=== PATIENT | male | born 1990 | race African-American/Black ===

== ENCOUNTER 2024-07-18 10:04 | Inpatient (IN) | payer OTHER ==
[2024-07-18] MEDS ORDERED: HYDROCODONE/APAP 10/325 TAB ONE (11:08)
[2024-07-18] MEDS ORDERED: NA CHLORIDE 0.9% 100 ML ONE (11:09)
[2024-07-18] MEDS ORDERED: CEFEPIME 2 GM VIAL ONE (11:09)
[2024-07-18 11:10] LABS: Absolute Basophils 0.1 K/uL (0-0.5); Absolute Eosinophils 0.2 K/uL (0-0.5); Absolute Lymphocytes (CBC) 1.1 K/uL (0.7-4.9); Absolute Monocytes 1.1 K/uL (0.1-1.3); Absolute Neutrophil 10.1 K/uL (1.8-8.0); Basophils % 0.9 % (0-1.3); Eosinophils % 1.9 % (0-4.4); Hematocrit 35.5 % (39.6-49.0); Hemoglobin 11.1 g/dL (13.6-17.9); Lymphocytes % 8.9 % (15.3-44.8); MCH 26.8 pg (27.0-35.0); MCHC 31.1 g/dL (32.0-36.0); MCV 86.1 fL (80-100); MPV 7.7 fL (7.6-11.3); Monocytes % 8.6 % (3.3-12.3); Neutrophils % 79.7 % (41.7-73.7); Platelets 396 thou/uL (152-406); RBC Red Blood Cell Count 4.13 M/uL (4.33-5.43); Red Cell Distribution Width 16.3 % (12.1-15.2)
[2024-07-18 11:19] LABS: PT Prothrombin Time 13.4 SECONDS (9.4-12.5); PTT, Activated Partial Thromb 33.9 SECONDS (24.3-36.9); Protime INR 1.2
[2024-07-18 11:28] LABS: Albumin 3.3 g/dL (3.4-5.0); Albumin/Globulin Ratio 0.6 (1.1-1.8); Anion Gap 11.2 mEq/L (5.0-15.0); Bilirubin Total 0.4 mg/dL (0.2-1.0); Potassium 4.2 mEq/L (3.5-5.1); Protein, Total 9.3 g/dL (6.4-8.2)
--- NOTE | 2024-07-18 11:45 | RAD REPORT ---
Exam:Foot Right 3 View CLINICAL HISTORY: Right foot pain FINDINGS: Lateral soft tissue ulceration. Destruction involves portions of the fifth metatarsal head. This is compatible with osteomyelitis. Medial subluxation fifth middle phalanx. No fracture visualized.
[2024-07-18] MEDS ORDERED: CLINDAMYCIN 900MG/D5W 900 MG/50 ML IVPB IV ONE (12:04)
--- NOTE | 2024-07-18 12:09 | ER ---
Nurse's Notes [facility] – [place], [place] Name: Tan Marlow Age: 34 yrs Sex: Male : 1990 Arrival Date: 07/18/2024 Time: 10:04 Bed 3 Private MD: Diagnosis: Osteomyelitis of right fifth metatarsal Presentation: 07/18 10:25 Chief complaint: Patient states: increased redness and swelling to bottom of R foot ss since this morning. HX of diabetic foot ulcer. Coronavirus screen: Client denies travel out of the [place] in the last 14 days. Ebola Screen: Patient denies exposure to infectious person. Patient denies travel to an Ebola-affected area in the 21 days before illness onset. Initial Sepsis Screen: Does the patient meet any 2 criteria? No. Patient's initial sepsis screen is negative. Does the patient have a suspected source of infection? No. Patient's initial sepsis screen is negative. Risk Assessment: Do you want to hurt yourself or someone else? Patient reports no desire to harm self or others. Note Pt reports he has not taken his blood pressure medication this morning as of yet. Onset of symptoms was July 18, 2024. 10:25 Method Of Arrival: Ambulatory ss 10:25 Acuity: LULY 2 ss Historical: - Allergies: 10:27 Aspirin; ss 10:27 Bactrim; ss 10:27 Sulfa (Sulfonamide Antibiotics); ss 10:27 Vancomycin; ss - PMHx: 10:27 diabetes mellitus; Hypertensive disorder; kidney disease; MWF dialysis (kidney disease);ss - Immunization history:: Client reports having NOT received the Covid vaccine. - Infectious Disease History:: Denies. - Social history:: Smoking status: Patient denies any tobacco usage or history of. - Family history:: not pertinent. Screenin:02 [facility] ED Fall Risk Assessment (Adult) History of falling in the last 3 months, mb9 including since admission No falls in past 3 months (0 pts) Confusion or Disorientation No (0 pts) Intoxicated or Sedated No (0 pts) Impaired Gait No (0 pts) Mobility Assist Device Used No (0 pt) Altered Elimination No (0 pt) Score/Fall Risk Level 0 - 2 = Low Risk Oriented to surroundings, Maintained a safe environment, Educated pt \T\ family on fall prevention, incl call for assistance when getting out of bed. Abuse screen: Denies threats or abuse. Nutritional screening: No deficits noted. Tuberculosis screening: No symptoms or risk factors identified. Assessment: 11:02 General: Appears in no apparent distress. Behavior is calm, cooperative. Pain: mb9 Complains of pain in right foot Pain does not radiate. Pain currently is 10 out of 10 on a pain scale. Quality of pain is described as throbbing, Pain began gradually, Is continuous, chronic. Neuro: Langston Agitation-Sedation Scale (RASS): 0 - Alert and Calm Level of Consciousness is awake, alert, obeys commands, Oriented to person, place, time, situation, Appropriate for age. Cardiovascular: Patient's skin is warm and dry. Respiratory: Airway is patent Respiratory effort is even, unlabored, Respiratory pattern is regular, symmetrical. GI: Abdomen is flat, non-distended. : No signs and/or symptoms were reported regarding the genitourinary system. EENT: No signs and/or symptoms were reported regarding the EENT system. Derm: Skin is pink, warm \T\ dry. Musculoskeletal: Swelling present in right foot. 12:15 Reassessment: Patient appears in no apparent distress at this time. No changes from mb9 previously documented assessment. Patient and/or family updated on plan of care and expected duration. Pain level reassessed. 13:35 Reassessment: No changes from previously documented assessment. Patient and/or family mb9 updated on plan of care and expected duration. Pain level reassessed. Patient is alert, oriented x 3, equal unlabored respirations, skin warm/dry/pink. Vital Signs: 10:25 BP 205 / 123; Pulse 93; Resp 14; Temp 98.6(O); Pulse Ox 100% on R/A; Weight 74.84 kg; Height 5 ft. 6 in. ; Pain 8/10; 11:38 BP 191 / 91; Pulse 75; Resp 16; Pulse Ox 99% on R/A; mb9 12:09 BP 164 / 80; Pulse 88; Resp 18; Pulse Ox 100% on R/A; mb9 13:35 BP 155 / 94; Pulse 79; Resp 18; Pulse Ox 100% on R/A; mb9 10:25 Body Mass Index 26.63 (74.84 kg, 167.64 cm) 10:25 Pain Scale: Adult ss ED Course: 10:11 Patient arrived in ED. im 10:15 Jak Grant MD is Attending Physician. rt 10:27 Triage completed. ss 10:27 Arm band placed on right wrist. ss 10:47 Ewa Daniel, RN is Primary Nurse. mb9 10:57 Initial lab(s) drawn, by me, sent to lab. First set of blood cultures drawn by me. mb9 11:01 Missed attempt(s): 20 gauge in left antecubital area. Bleeding controlled, band aid mb9 applied, catheter tip intact. 11:02 Placed in gown. Bed in low position. Call light in reach. Side rails up X 1. Provided mb9 Education on: press call light if needing anything. Client placed on continuous cardiac and pulse oximetry monitoring. NIBP monitoring applied. fatback trimmer on. 11:03 Ptt, Activated Sent. mb9 11:03 CBC with Diff Sent. mb9 11:03 CMP Sent. mb9 11:03 Protime (+inr) Sent. mb9 11:03 No provider procedures requiring assistance completed. mb9 11:18 Inserted saline lock: 20 gauge in right antecubital area, using aseptic technique. ls5 Blood collected. 11:19 Foot Right 3 View XRAY In Process Unspecified. EDMS 11:22 Blood Culture Adult (2) Sent. mb9 11:22 EKG done, by ED staff, reviewed by Jak Grant MD. mb9 12:08 Jorge Fonseca is Hospitalizing Provider. rt 12:09 Patient requests pain medication. mb9 13:35 Patient admitted, IV remains in place. mb9 Administered Medications: 11:22 Drug: [place] PO 10 mg-325 mg 1 tabs PO once Route: PO; mb9 12:43 Follow up: Response: No adverse reaction mb9 11:22 Drug: Cefepime IVPB 2 grams IVPB at 200 ml/hr once over 30 mins; (mix in NS 100 mL) mb9 Route: IVPB; Rate: 200 ml/hr; Infused Over: 30 mins; Site: right antecubital; 12:02 Follow up: Response: No adverse reaction; IV Status: Completed infusion mb9 12:08 Drug: Clindamycin IVPB 900 mg IVPB once over 30 mins; (mix in 50 mL) Route: IVPB; mb9 Infused Over: 30 mins; Site: right antecubital; 12:43 Follow up: Response: No adverse reaction; IV Status: Completed infusion mb9 Medication: 11:02 VIS not applicable for this client. mb9 Outcome: 12:08 Decision to Hospitalize by Provider. rt 14:02 Admitted to Med/surg db 14:02 Admitted to Med/surg accompanied by tech, via wheelchair, room 431, Report called to ASKED 4TH FLOOR IF HAVE QUESTIONS. NO QUESTIONS 14:02 Condition: stable 14:02 Instructed on the need for admit, 14:03 Patient left the ED. db Signatures: Dispatcher [employer] EDMS Aga Hector RN RN ss Mayela Mendosa RN RN Ewa Rider RN RN mbJak Quispe MD MD rt Evelio Saravia5 Zara Freedman
--- NOTE | 2024-07-18 12:09 | EDPHYS ---
Physician Documentation [facility] Name: Tan Marlow Age: 34 yrs Sex: Male : 1990 Arrival Date: 07/18/2024 Time: 10:04 Bed 3 Private MD: ED Physician Jak Grant HPI: 07/18 12:10 This 34 yrs old Black Male presents to ER via Ambulatory with complaints of Wound Check rt - on right foot. 12:10 Patient has a chronic diabetic foot wound to the right foot, states that he developed rt worsening redness, pain to the foot starting today. Reports a malodorous discharge. Denies other acute complaints at this time, symptoms are moderate in severity, no other aggravating or alleviating factors.. Historical: - Allergies: 10:27 Aspirin; ss 10:27 Bactrim; ss 10:27 Sulfa (Sulfonamide Antibiotics); ss 10:27 Vancomycin; ss - PMHx: 10:27 diabetes mellitus; Hypertensive disorder; kidney disease; MWF dialysis (kidney disease);ss - Immunization history:: Client reports having NOT received the Covid vaccine. - Infectious Disease History:: Denies. - Social history:: Smoking status: Patient denies any tobacco usage or history of. - Family history:: not pertinent. ROS: 12:10 Constitutional: Negative for fever, chills, and weight loss, Cardiovascular: Negative rt for chest pain, palpitations, and edema, Respiratory: Negative for shortness of breath, cough, wheezing, and pleuritic chest pain, Abdomen/GI: Negative for abdominal pain, nausea, vomiting, diarrhea, and constipation, 12:10 MS/extremity: Positive for Wound, erythema, pain, Exam: 12:10 Constitutional: This is a well developed, well nourished patient who is awake, alert, rt and in no acute distress. Head/Face: Normocephalic, atraumatic. Chest/axilla: Normal chest wall appearance and motion. Nontender with no deformity. No lesions are appreciated. Cardiovascular: Regular rate and rhythm with a normal S1 and S2. No gallops, murmurs, or rubs. Normal PMI, no JVD. No pulse deficits. Respiratory: Lungs have equal breath sounds bilaterally, clear to auscultation and percussion. No rales, rhonchi or wheezes noted. No increased work of breathing, no retractions or nasal flaring. Abdomen/GI: Soft, non-tender, with normal bowel sounds. No distension or tympany. No guarding or rebound. No evidence of tenderness throughout. 12:10 Musculoskeletal/extremity: Ulceration to the fifth metatarsal region, scant malodorous discharge. 12:10 ECG was reviewed by the Attending Physician. rt Vital Signs: 10:25 BP 205 / 123; Pulse 93; Resp 14; Temp 98.6(O); Pulse Ox 100% on R/A; Weight 74.84 kg; ss Height 5 ft. 6 in. ; Pain 8/10; 11:38 BP 191 / 91; Pulse 75; Resp 16; Pulse Ox 99% on R/A; mb9 12:09 BP 164 / 80; Pulse 88; Resp 18; Pulse Ox 100% on R/A; mb9 13:35 BP 155 / 94; Pulse 79; Resp 18; Pulse Ox 100% on R/A; mb9 10:25 Body Mass Index 26.63 (74.84 kg, 167.64 cm) ss 10:25 Pain Scale: Adult ss MDM: 10:31 Medical Screening Exam initiated rt 12:10 Differential diagnosis: Cellulitis, diabetic foot wound, osteomyelitis. Data reviewed: rt vital signs, nurses notes. Consideration of Admission/Observation Patient was admitted/placed on observation. Management of patient was discussed with the following: Hospitalist: Agrees to admit. I considered the following discharge prescriptions or medication management in the emergency department Medications were administered in the Emergency Department. See MAR. Independent interpretation of the following test(s) in the Emergency Department X-Ray: My interpretation is Osteomyelitis seen on interpretation of x-ray images. Care significantly affected by the following chronic conditions: Diabetes, Hypertension, Chronic Kidney Disease. Counseling: I had a detailed discussion with the patient and/or guardian regarding the historical points, exam findings, and any diagnostic results supporting the discharge/admit diagnosis, lab results, radiology results, the need for further work-up and treatment in the hospital. Response to treatment: There is no appreciated change of the patient's symptoms at this time. 07/18 10:39 Order name: Blood Culture Adult (2) rt 07/18 10:39 Order name: CBC with Diff; Complete Time: 11:32 rt 07/18 10:39 Order name: CMP; Complete Time: 11:32 rt 07/18 10:39 Order name: Lactate w/ 2H reflex if indic.; Complete Time: 11:32 rt 07/18 10:39 Order name: Protime (+inr); Complete Time: 11:32 rt 07/18 10:39 Order name: Ptt, Activated; Complete Time: 11:32 rt 07/18 10:39 Order name: Foot Right 3 View XRAY; Complete Time: 11:51 rt 07/18 10:39 Order name: Accucheck; Complete Time: 10:47 rt 07/18 10:39 Order name: Cardiac monitoring; Complete Time: 10:47 rt 07/18 10:39 Order name: EKG - Nurse/Tech; Complete Time: 11:22 rt 07/18 10:39 Order name: IV Saline Lock - Large Bore; Complete Time: 11:23 rt 07/18 10:39 Order name: Labs collected and sent; Complete Time: 11:03 rt 07/18 10:39 Order name: O2 Per Protocol; Complete Time: 10:47 rt 07/18 10:39 Order name: O2 Sat Monitoring; Complete Time: 10:47 rt 07/18 10:39 Order name: Vital Signs; Complete Time: 10:47 rt EC:10 Rate is 92 beats/min. Rhythm is regular, 1st Degree Block with No ectopy. QRS [place] is rt Normal. PA interval is normal. QRS interval is normal. QT interval is normal. No Q waves. No ST changes noted. Interpreted by me. Administered Medications: 11:22 Drug: [place] PO 10 mg-325 mg 1 tabs PO once Route: PO; mb9 12:43 Follow up: Response: No adverse reaction mb9 11:22 Drug: Cefepime IVPB 2 grams IVPB at 200 ml/hr once over 30 mins; (mix in NS 100 mL) mb9 Route: IVPB; Rate: 200 ml/hr; Infused Over: 30 mins; Site: right antecubital; 12:02 Follow up: Response: No adverse reaction; IV Status: Completed infusion mb9 12:08 Drug: Clindamycin IVPB 900 mg IVPB once over 30 mins; (mix in 50 mL) Route: IVPB; mb9 Infused Over: 30 mins; Site: right antecubital; 12:43 Follow up: Response: No adverse reaction; IV Status: Completed infusion mb9 Disposition Summary: 07/18/24 12:08 Hospitalization Ordered Notes: Hospitalization Status: Inpatient Admission rt Provider: Jorge Fonseca rt Location: Telemetry/MedSurg (Inpatient) rt Condition: Stable rt Problem: new rt Symptoms: are unchanged rt Bed/Room Type: Standard rt Room Assignment: 431(07/18/24 13:30) bd Diagnosis - Osteomyelitis of right fifth metatarsal rt Forms: - Medication Reconciliation Form rt - SBAR form rt - Leadership Thank You Letter rt Signatures: Dispatcher [employer] EDMS Carmelita mcgee bd Aga Hector, RN RN ss Ewa Daniel RN RN mb9 Jak Grant MD MD rt Corrections: (The following items were deleted from the chart) 10:40 10:40 BLOOD CULTURE*+BA.LAB.BRZ ordered. EDMS EDMS 10:40 10:40 CBC+H.LAB.BRZ ordered. EDMS EDMS 10:40 10:40 COMPREHENSIVE METABOLIC PANEL+C.LAB.BRZ ordered. EDMS EDMS 10:40 10:40 LACTATE+C.LAB.BRZ ordered. EDMS EDMS 10:40 10:40 PROTIME (+INR)+COAG.LAB.BRZ ordered. EDMS EDMS 10:40 10:40 PTT, ACTIVATED+COAG.LAB.BRZ ordered. EDMS EDMS 10:40 10:40 Foot Right 3 View+RAD.RAD.BRZ ordered. EDMS EDMS 13:05 12:08 rt bd 13:30 13:05 411 bd bd
--- NOTE | 2024-07-18 12:59 | P.HP ---
Certification for Inpatient Patient admitted to: Inpatient With expected LOS: >2 Midnights Patient will require the following post-hospital care: None Practitioner: I am a practitioner with admitting privileges, knowledge of patient current condition, hospital course, and medical plan of care. Services: Services provided to patient in accordance with Admission requirements found in Title 42 Section 412.3 of the Code of Federal Regulations Patient History Date of Service: 07/18/24 Reason for admission: Osteomyelitis History of Present Illness: 34-year-old recently initiated on HD presents emergency department chief complaint of right foot wound. He has had the wound for some time now but has been getting worse and causing increasing pain which prompted his visit to the emergency department. He was evaluated in the emergency department his labs were significant for white blood cell count 12.7 hemoglobin 11.1 creatinine 7.53 GFR 9 potassium 4.2 bicarb 22 lactic acid 0.9 x-ray of the right foot shows distraction involves portion of the fifth metatarsal head. This is compatible with osteomyelitis. Patient started on broad-spectrum antibiotics, ED provider wishes to admit patient for further evaluation and management. Allergies aspirin Adverse Reaction (Verified 06/03/24 21:06) Hives/Rash Sulfa (Sulfonamide Antibiotics) Adverse Reaction (Verified 06/03/24 21:07) Hives/Rash sulfamethoxazole [From Bactrim] Adverse Reaction (Verified 06/03/24 21:07) Hives/Rash trimethoprim [From Bactrim] Adverse Reaction (Verified 06/03/24 21:07) Hives/Rash vancomycin Adverse Reaction (Verified 06/03/24 21:07) Hives/Rash Home Medications: Atorvastatin Calcium 40 mg PO BEDTIME 06/03/24 Buproprion S.r. [Wellbutrin Sr*] 150 mg PO DAILY 06/03/24 Furosemide 1 tab PO SEECOM 06/03/24 Hydralazine [Apresoline*] 100 mg PO TID 06/03/24 Insulin Aspart [Novolog Flexpen] See Protocol SQ ACHS 06/03/24 Insulin Detemir [Levemir Flexpen] 10 unit SQ BID 06/03/24 Metoprolol Succinate 1 tab PO DAILY 06/03/24 NIFEdipine [Nifedipine ER] 60 mg PO BID 06/03/24 cloNIDine HCL [Clonidine HCl] 0.1 mg PO TID 06/03/24 Doxycycline Hyclate 100 mg PO DAILY #7 tab 06/10/24 Ferrous Sulfate 325 mg PO DAILY 30 Days #30 tab 06/10/24 Levofloxacin [Levaquin] 125 mg PO DAILY 6 Days #3 tab 06/10/24 Losartan Potassium [Cozaar*] 50 mg PO BID 30 Days #60 tab 06/10/24 Multivitamin [Daily Multivitamin] 1 each PO DAILY 30 Days #30 tab 06/10/24 Quetiapine Fumarate [Seroquel] 50 mg PO BEDTIME 30 Days #30 tab 06/10/24 - Past Medical/Surgical History Diabetic: Yes -: HTN -: DM -: ESRD on HD-pending PD -: Incision right foot - Social History Alcohol use: No CD- Drugs: No Caffeine use: No Place of Residence: Home Review of Systems 10-point ROS is otherwise unremarkable Musculoskeletal: Foot Pain Integumentary: Other (To right foot) Physical Examination - Physical Exam General: Alert, In no apparent distress, Oriented x3 HEENT: Atraumatic, PERRLA, Mucous membr. moist/pink, EOMI, Sclerae nonicteric Neck: Supple, 2+ carotid pulse no bruit, No LAD, Without JVD or thyroid abnormality Respiratory: Clear to auscultation bilaterally, Normal air movement Cardiovascular: Regular rate/rhythm, Normal S1 S2 Gastrointestinal: Normal bowel sounds, No tenderness Musculoskeletal: No tenderness Integumentary: Diabetic ulcer (Diabetic ulceration right lateral foot base of fifth toe) Neurological: Normal speech, Normal strength at 5/5 x4 extr, Normal tone, Normal affect - Studies Laboratory Data (last 24 hrs) 07/18/24 07/18/24 07/18/24 10:59 10:59 10:59 WBC 12.70 H Hgb 11.1 L Hct 35.5 L Plt Count 396 PT 13.4 H INR 1.20 APTT 33.9 Sodium 134 L Potassium 4.2 BUN 46 H Creatinine 7.53 H Glucose 245 H Total Bilirubin 0.4 AST 30 ALT 30 Alkaline Phosphatase 154 H Assessment and Plan - Plan Assessment: Diabetic foot wound to right lateral foot at base of fifth toe, osteomyelitis Diabetes mellitus type 2insulin-dependent with hyperglycemia ESRD on HD MWF-pending possible PD outpatient Hypertension Plan: Diabetic foot wound to right lateral foot at base of fifth toe, osteomyelitis Continue IV antibiotics. Allergic to vancomycin, continue cefepime, clindamycin for now Infectious disease, general surgery consulted N.p.o. after midnight in anticipation of possible debridement with general surgery As needed pain medications Likely to need prolonged antibiotics, will assess for possibility of administering with dialysis versus home with home health/ABX Diabetes mellitus type 2insulin-dependent with hyperglycemia At home takes Levemir 10 units twice daily, sliding scale insulin ACHS Accu-Chek, sliding scale insulin ESRD on HD MWF-pending possible PD outpatient Last had HD 07/17 Nephrology consulted Reports he was awaiting peritoneal dialysis teaching, has not initiated yet but has catheter in place Hypertension Resume home medications when verified DVT PPX: Heparin subcu Code status: Full Discharge Plan: Home Plan to discharge in: 48 Hours - Advance Directives Does patient have a Living Will: No Does patient have a Durable POA for Healthcare: No - Code Status/Comfort Care Code Status Assessed: Yes (Full code) Critical Care: No Time Spent Managing Pts Care (In Minutes): 67
[2024-07-18] MEDS ORDERED: ONDANSETRON 4 MG/2 ML VIAL IV PRN (15:21)
[2024-07-18] MEDS ORDERED: cloNIDine HCL 0.1 MG TAB PO ONE (15:29)
[2024-07-18] MEDS: HYDROCODONE/APAP 5/325 MG TAB PO PRN (15:55)
[2024-07-18] MEDS: cloNIDine HCL 0.1 MG TAB PO SCH (16:29)
[2024-07-18] MEDS: INSULIN REGULAR (HUMAN) 100 UNIT/ML SQ SCH (16:30)
[2024-07-18] MEDS: CLINDAMYCIN 600MG/D5W 50 ML IV SCH (20:30)
[2024-07-18] MEDS: HYDROMORPHONE HCL 1 MG/ML INJ IV PRN (20:30)
[2024-07-18] MEDS: CALCIUM ACETATE 667 MG TAB PO SCH (20:32)
[2024-07-18] MEDS: LOSARTAN POTASSIUM 50 MG TABLET PO SCH (20:32)
[2024-07-18] MEDS: HEPARIN 5000 UNIT/ML 1 ML VIAL SQ SCH (20:32)
[2024-07-18] MEDS: ATORVASTATIN 40 MG TAB PO SCH (20:33)
[2024-07-18] MEDS: QUETIAPINE 25 MG TAB PO SCH (20:33)
[2024-07-18] MEDS: NIFEDIPINE XL 60 MG TABLET PO SCH (20:34)
[2024-07-18] MEDS: HYDRALAZINE HCL 25 MG TABLET PO SCH (20:34)
[2024-07-18] MEDS: CEFEPIME 1 GM in NA CHLORIDE 0.9% 100 ML IV SCH (20:34)
[2024-07-19 06:48] LABS: Absolute Basophils 0.1 K/uL (0-0.5); Absolute Eosinophils 0.4 K/uL (0-0.5); Absolute Lymphocytes (CBC) 1.1 K/uL (0.7-4.9); Absolute Monocytes 0.9 K/uL (0.1-1.3); Absolute Neutrophil 5.8 K/uL (1.8-8.0); Basophils % 1.1 % (0-1.3); Eosinophils % 5.1 % (0-4.4); Hemoglobin 9.3 g/dL (13.6-17.9); Lymphocytes % 13.5 % (15.3-44.8); MCH 26.7 pg (27.0-35.0); MCHC 31.1 g/dL (32.0-36.0); MCV 85.9 fL (80-100); MPV 7.8 fL (7.6-11.3); Monocytes % 11.3 % (3.3-12.3); Platelets 341 thou/uL (152-406); RBC Red Blood Cell Count 3.49 M/uL (4.33-5.43)
[2024-07-19 07:10] LABS: Anion Gap 11.6 mEq/L (5.0-15.0); Potassium 4.6 mEq/L (3.5-5.1)
[2024-07-19] MEDS ORDERED: D50W 25 GM/50 ML SYRINGE IV PRN (08:21)
[2024-07-19] MEDS ORDERED: GLUCAGON 1 MG/VIAL IV PRN (08:22)
[2024-07-19] MEDS: HYDRALAZINE HCL 20 MG/ML VIAL IV PRN (08:28)
[2024-07-19] MEDS ORDERED: D10W 125 ML IV PRN (08:31)
[2024-07-19] MEDS: FERROUS SULFATE 325 MG TAB PO SCH (08:46)
[2024-07-19] MEDS: BUPROPRION HCL S.R. 150MG TAB PO SCH (08:47)
[2024-07-19] MEDS: METOPROLOL XL 100 MG TAB PO SCH (08:47)
[2024-07-19] MEDS ORDERED: MANNITOL 25% 12.5 GM/50 ML VIAL IV PRN (09:40)
[2024-07-19] MEDS ORDERED: NA CHLORIDE 0.9% 1,000 ML IV PRN (09:40)
--- NOTE | 2024-07-19 09:42 | P.CNS ---
Date of Consult: 07/19/24 Reason for Consult: ESRD Requesting Physician: rufus hutchinson Chief Complaint: Osteomyelitis History of Present Illness: 34-year-old recently initiated on HD presents emergency department chief complaint of right foot wound. He has had the wound for some time now but has been getting worse and causing increasing pain which prompted his visit to the emergency department. He was evaluated in the emergency department his labs were significant for white blood cell count 12.7 hemoglobin 11.1 creatinine 7.53 GFR 9 potassium 4.2 bicarb 22 lactic acid 0.9 x-ray of the right foot shows distraction involves portion of the fifth metatarsal head. This is compatible with osteomyelitis. Patient started on broad-spectrum antibiotics, ED provider wishes to admit patient for further evaluation and management. [id number] 12:10 This 34 yrs old Black Male presents to ER via Ambulatory with complaints of Wound Check rt - on right foot. 12:10 Patient has a chronic diabetic foot wound to the right foot, states that he developed rt worsening redness, pain to the foot starting today. Reports a malodorous discharge. Denies other acute complaints at this time, symptoms are moderate in severity, no other aggravating or alleviating factors.. Allergies aspirin Adverse Reaction (Verified 06/03/24 21:06) Hives/Rash Sulfa (Sulfonamide Antibiotics) Adverse Reaction (Verified 06/03/24 21:07) Hives/Rash sulfamethoxazole [From Bactrim] Adverse Reaction (Verified 06/03/24 21:07) Hives/Rash trimethoprim [From Bactrim] Adverse Reaction (Verified 06/03/24 21:07) Hives/Rash vancomycin Adverse Reaction (Verified 06/03/24 21:07) Hives/Rash Home medications list reviewed: Yes Home Medications: Atorvastatin Calcium 40 mg PO BEDTIME 06/03/24 Buproprion S.r. [Wellbutrin Sr*] 150 mg PO DAILY 06/03/24 Furosemide 1 tab PO SEECOM 06/03/24 Insulin Aspart [Novolog Flexpen] See Protocol SQ ACHS 06/03/24 Metoprolol Succinate 1 tab PO DAILY 06/03/24 NIFEdipine [Nifedipine ER] 60 mg PO BID 06/03/24 cloNIDine HCL [Clonidine HCl] 0.1 mg PO TID 06/03/24 Ferrous Sulfate 325 mg PO DAILY 30 Days #30 tab 06/10/24 Losartan Potassium [Cozaar*] 50 mg PO BID 30 Days #60 tab 06/10/24 Quetiapine Fumarate [Seroquel] 50 mg PO BEDTIME 30 Days #30 tab 06/10/24 Calcium Acetate 667 mg PO TID 07/18/24 Hydralazine [Apresoline] 100 mg PO TID 07/18/24 Insulin Glargine,Hum.rec.anlog [Lantus] 10 unit SQ BID 07/18/24 - Past Medical/Surgical History Diabetic: Yes -: HTN -: DM I with CKD, Polyneuropathy & Retinopathy -: ESRD on HD (Dr. Oneal/ [facility]) -: Anemia -: Incision right foot - Family History Father History Unknown: Yes Medical History: Heart disease, Diabetes, Stroke, Kidney disease Notes: DM. CHF Mother History Unknown: Yes Medical History: Diabetes, Kidney disease Notes: Dementia showing early on set - Social History Alcohol use: No CD- Drugs: No Caffeine use: Yes Place of Residence: Home Review of Systems 10-point ROS is otherwise unremarkable Physical Examination Temp Pulse Resp BP Pulse Ox 97.8 F 79 12 205/111 H 97 07/19/24 08:00 07/19/24 08:00 07/19/24 08:00 07/19/24 08:00 07/19/24 08:00 General: In no apparent distress, Oriented x3, Cooperative HEENT: Atraumatic Neck: Supple Respiratory: Clear to auscultation bilaterally, Normal air movement Cardiovascular: No edema, Regular rate/rhythm Gastrointestinal: Soft and benign, Non-distended Musculoskeletal: No clubbing, No contractures Integumentary: No rashes, No cyanosis Neurological: Normal speech Laboratory Data (last 24 hrs) 07/18/24 07/18/24 07/18/24 10:59 10:59 10:59 WBC 12.70 H Hgb 11.1 L Hct 35.5 L Plt Count 396 PT 13.4 H INR 1.20 APTT 33.9 Sodium 134 L Potassium 4.2 BUN 46 H Creatinine 7.53 H Glucose 245 H Total Bilirubin 0.4 AST 30 ALT 30 Alkaline Phosphatase 154 H Imagings Data: [id number] Exam:Foot Right 3 View CLINICAL HISTORY: Right foot pain FINDINGS: Lateral soft tissue ulceration. Destruction involves portions of the fifth metatarsal head. This is compatible with osteomyelitis. Medial subluxation fifth middle phalanx. No fracture visualized. Conclusions/Impression: ESRD on HD -Acute HD ordered HTN with CKD -Continue Losartan -Continue Nifedipine XL -Continue Metoprolol DM I with CKD, Polyneuropathy & Retinopathy -Continue Lantus -RISS DM I with Right Foot Ulcer Right foot osteomyelitis -Surgery following -Continue abx -Wound care as ordered Anemia in CKD -Retacrit qHD CKD MBD Secondary HyperPTH -Continue Phoslo -Start Ergo Hospitalist and ER notes reviewed Thank you kindly for the consultation
[2024-07-19] MEDS ORDERED: ALBUMIN HUMAN 25% 50 ML IV SCH (10:00)
[2024-07-19] MEDS: NA CHLORIDE 0.9% 500 ML ONE (13:00)
[2024-07-19] MEDS: HYDRALAZINE HCL 20 MG/ML VIAL ONE (13:30)
--- NOTE | 2024-07-19 13:39 | P.PN ---
Date of Service: 07/19/24 Subjective Awake and conversing well c/o pain to right foot NPO for surgery today HD ordered per Dr. Oneal ROS 10 point ROS as noted above, otherwise negative Physical Exam General: Alert and Oriented x3, NAD HEENT: Atraumatic, PERRLA, Mucous membr. moist/pink, EOMI, Sclerae nonicteric Neck: Supple, 2+ carotid pulse no bruit, No LAD, Without JVD or thyroid abnormality Respiratory: Clear to auscultation bilaterally, Normal air movement, on RA Cardiovascular: RRR, Normal S1 S2 present, No murmur noted Gastrointestinal: Normal bowel sounds, No tenderness Musculoskeletal: No tenderness Integumentary: Diabetic ulcer (Diabetic ulceration right lateral foot base of fifth toe) Neurological: Normal speech, Normal strength at 5/5 x4 extr, Normal tone, Normal affect Vitals Reviewed Assessment: Diabetic foot wound to right lateral foot at base of fifth toe, osteomyelitis Diabetes mellitus type 2insulin-dependent with hyperglycemia ESRD on HD MWF-pending possible PD outpatient Hypertension Plan: Diabetic foot wound to right lateral foot at base of fifth toe, osteomyelitis Continue IV antibiotics. Allergic to vancomycin, continue cefepime, clindamycin for now Infectious disease, general surgery consulted General surgery plan for I and D today 07/19 As needed pain medications Likely to need prolonged antibiotics, will assess for possibility of administering with dialysis versus home with home health/ABX Blood culture NGTD Diabetes mellitus type 2insulin-dependent with hyperglycemia At home takes Levemir 10 units twice daily, sliding scale insulin ACHS Accu-Chek, sliding scale insulin ESRD on HD MWF-pending possible PD outpatient Last had HD 07/17, HD scheduled for today 07/19 Nephrology consulted Reports he was awaiting peritoneal dialysis teaching, has not initiated yet but has catheter in place Hypertension Resume home medications when verified hydralazine PRN DVT PPX: Heparin subcu Code status: Full Discharge Plan: Home Plan to discharge in: 48 Hours
[2024-07-19] MEDS ORDERED: propofoL 200 MG/20 ML VIAL IV ONE (13:48)
[2024-07-19] MEDS ORDERED: MIDAZOLAM HCL 2 MG/2 ML INJ ONE (13:49)
[2024-07-19] MEDS: LIDOCAINE HCL/EPINEPHRINE 20 ML MDV ONE (14:03)
--- NOTE | 2024-07-19 14:51 | EKG ---
Test Date: 2024-07-18 Test Time: 11:17:24 Rf Test Engineer: MB MEASUREMENT RESULTS: Intervals: Rate: 92 WY: 212 QRSD: 104 QT: 380 QTc: 469 [place]: P: 59 WY: 212 QRS: 162 T: -11 INTERPRETIVE STATEMENTS: Sinus rhythm with 1st degree AV block Septal infarct, age undetermined T wave abnormality, consider inferior ischemia Abnormal ECG Compared to ECG 06/03/2024 17:34:25 Left-axis deviation no longer present Myocardial infarct finding still present T-wave abnormality still present Possible ischemia still present Electronically Signed On 07-19-24 14:46:38 CDT by Julian Sidhu
[2024-07-19] MEDS: LIDOCAINE 1% MPF 5 ML VIAL ONE (14:52)
--- NOTE | 2024-07-19 15:04 | P.OP ---
Preoperative diagnosis: Wound of RIGHT Lateral Foot Postoperative diagnosis: Wound of RIGHT Lateral Foot Primary procedure: Debridement of RIGHT Lateral Foot Anesthesia: GETA Estimated blood loss: <5cc Specimen: Debridement Tissue Findings: Necrotic tissue into bone Complications: None Transferred to: Recovery Room Condition: Good
[2024-07-19 19:47] LABS: Hepatitis B surface AG Interp. Nonreactive (Nonreactive)
[2024-07-19 19:48] LABS: HBsAG Nonreactive Report Report
[2024-07-19] MEDS: EPOETIN ALFA 10,000 UNIT/ML VIAL IV SCH (20:15)
[2024-07-19] MEDS: DOCUSATE NA 100 MG CAP PO SCH (22:12)
[2024-07-19] MEDS: INSULIN GLARGINE 100 UNIT/ML SQ SCH (22:12)
--- NOTE | 2024-07-20 01:22 | OP ---
Date of Procedure: 07/19/2024 Surgeon: Yoseph Deshpande MD, Preoperative Diagnosis: Chronic wound with osteomyelitis of the right lateral foot. Postoperative Diagnosis: Chronic wound with osteomyelitis of the right lateral foot. Procedure Performed: Debridement of the right lateral foot. Anesthesia: General endotracheal. Estimated Blood Loss: Less than 5 cc. Specimen: Debridement tissue. Findings: There was necrotic tissue on the lateral foot wound consistent with a diabetic foot wound, which had eroded into the bone with osteomyelitis and osteoporotic bone. Complications: None. Disposition: The patient was transferred to recovery room in good condition. Procedure In Detail: After informed consent was obtained, the patient was brought to the operating r oom, prepped in the usual sterile fashion. After adequate anesthesia achieved, I removed all nonviab le tissue circumferentially around the open wound of the right foot circumferentially around the area using a 15 blade down to subcutaneous tissues, also removed all nonviable tissue circumferentially a round using a combination of electrocautery and sharp dissection as well as a rasp. There were fragm entations of bone consistent with osteomyelitic changes into the cortex of the bone at the metatarsal head near the metatarsophalangeal joint. This was rasped down to remove all nonviable tissue. The area was copiously irrigated. Hemostasis was achieved with minimal electrocautery. The wound was th en packed with Vashe-soaked Kerlix and a sterile dressing placed over the top. The wound size at the end of the procedure was approximately 3.5 cm circumferentially around. The patient tolerated the p rocedure well without incident or complication, transferred to PACU in good condition. All counts we re correct at the end of the case. ANDREAS/BRIT Voice ID: [id number] Report ID: [id number]
[2024-07-20 07:34] LABS: Absolute Basophils 0.1 K/uL (0-0.5); Absolute Eosinophils 0.4 K/uL (0-0.5); Absolute Lymphocytes (CBC) 1.7 K/uL (0.7-4.9); Absolute Monocytes 1.1 K/uL (0.1-1.3); Basophils % 1.4 % (0-1.3); Eosinophils % 4.8 % (0-4.4); Hematocrit 31.8 % (39.6-49.0); Lymphocytes % 20.2 % (15.3-44.8); MCH 26.9 pg (27.0-35.0); MCHC 31.3 g/dL (32.0-36.0); MCV 85.7 fL (80-100); MPV 7.8 fL (7.6-11.3); Monocytes % 13.5 % (3.3-12.3); Neutrophils % 60.1 % (41.7-73.7); Platelets 400 thou/uL (152-406); RBC Red Blood Cell Count 3.71 M/uL (4.33-5.43); Red Cell Distribution Width 15.9 % (12.1-15.2)
[2024-07-20] MEDS: Mupirocin NASAL 2 APPL/1 GM TUBE NAS SCH (09:00)
[2024-07-20] MEDS: MULTIVITAMINS,THERAPEUT 1 TAB PO SCH (09:52)
[2024-07-20] MEDS: DRISDOL (VITAMIN D=ERGOCALCIFEROL) 50000 UNIT CAP PO SCH (09:52)
[2024-07-20] MEDS: LACTOBACILLUS/ACIDOPHILUS TAB PO SCH (09:52)
--- NOTE | 2024-07-20 11:11 | P.PN ---
Date of Service: 07/20/24 Vital Signs Temp Pulse Resp BP Pulse Ox 98.1 F 74 16 129/72 97 07/20/24 08:00 07/20/24 10:39 07/20/24 10:23 07/20/24 10:39 07/20/24 10:23 Medications Acetaminophen (Acetaminophen 325 Mg Tablet) 650 mg PO Q4HP PRN PRN Reason: Pain scale 2-4 (Mild) Hydrocodone Bitart/Acetaminophen (Hydrocodone/Apap 5/325 Mg Tab) 1 tab PO Q6H PRN PRN Reason: Pain scale 5-7 (Moderate) Last Admin: 07/18/24 15:55 Dose: 1 tab Atorvastatin Calcium (Atorvastatin 40 Mg Tab) 40 mg PO BEDTIME [facility] Last Admin: 07/19/24 22:11 Dose: 40 mg Bupropion HCl (Buproprion Hcl S.R. 150mg Tab) 150 mg PO DAILY [facility] Last Admin: 07/20/24 09:54 Dose: 150 mg Calcium Acetate (Calcium Acetate 667 Mg Tab) 667 mg PO TID [facility] Last Admin: 07/20/24 09:52 Dose: 667 mg Clonidine HCl (Clonidine Hcl 0.1 Mg Tab) 0.1 mg PO TID [facility] Last Admin: 07/20/24 09:49 Dose: 0.1 mg Docusate Sodium (Docusate Na 100 Mg Cap) 100 mg PO BID [facility] Last Admin: 07/20/24 09:00 Dose: Not Given Epoetin Victoriano (Epoetin Victoriano 10,000 Unit/Ml Vial) 10,000 unit IV EVERY HD [facility] Last Admin: 07/19/24 20:15 Dose: 10,000 unit Ergocalciferol (Drisdol (Vitamin D=Ergocalciferol) 85063 Unit Cap) 50,000 unit PO DAILY [facility] Stop: 07/21/24 09:01 Last Admin: 07/20/24 09:52 Dose: 50,000 unit Ferrous Sulfate (Ferrous Sulfate 325 Mg Tab) 325 mg PO DAILY [facility] Last Admin: 07/20/24 09:48 Dose: 325 mg Glucagon (Glucagon 1 Mg/Vial) 1 mg IV 1X PRN; Protocol PRN Reason: HYPOGLYCEMIA Heparin Sodium (Porcine) (Heparin 5000 Unit/Ml 1 Ml Vial) 5,000 unit SQ Q12HR [facility] Last Admin: 07/20/24 09:00 Dose: Not Given Heparin Sodium (Porcine) (Heparin 1,000 Unit/Ml Vial) 6,000 unit IV EVERY HD PRN PRN Reason: AFTER EACH Last Admin: 07/19/24 21:09 Dose: 6,000 unit Heparin Sodium (Porcine) (Heparin 1,000 Unit/Ml Vial) 2,000 unit IV EVERY HD PRN PRN Reason: Prevent HD System Clotting Last Admin: 07/19/24 18:05 Dose: 2,000 unit Hydralazine HCl (Hydralazine Hcl 20 Mg/Ml Vial) 10 mg IV Q6HP PRN PRN Reason: SBP>190 [facility] Last Admin: 07/19/24 08:28 Dose: 10 mg Hydralazine HCl (Hydralazine Hcl 25 Mg Tablet) 100 mg PO TID [facility] Last Admin: 07/20/24 09:00 Dose: Not Given Hydromorphone HCl (Hydromorphone Hcl 1 Mg/Ml Inj) 1 mg IV Q4H PRN PRN Reason: Pain scale 8-10 (Severe) Last Admin: 07/20/24 10:23 Dose: 1 mg Clindamycin HCl/Dextrose (Cleocin 600 Mg/D5w 50 Ml Iv) 50 mls @ 100 mls/hr IV Q8H [facility]; Protocol Last Admin: 07/20/24 04:20 Dose: 50 mls Cefepime HCl 1 gm/ Sodium (Chloride) 100 mls @ 200 mls/hr IV Q24H [facility] Last Admin: 07/19/24 22:10 Dose: 100 mls Dextrose (Dextrose 10% Water Iv Soln.) 125 mls @ 0 mls/hr IV PRN PRN; Protocol PRN Reason: HYPOGLYCEMIA Albumin Human (Albumin 25%) 50 mls @ 100 mls/hr IV EVERY HD [place] Insulin Glargine (Insulin Glargine 100 Unit/Ml) 10 unit SQ BID [facility] Last Admin: 07/20/24 09:53 Dose: 10 unit Insulin Human Regular (Insulin Regular (Human) 100 Unit/Ml) 0 unit SQ ACHS [facility]; Protocol Last Admin: 07/20/24 07:30 Dose: Not Given Lactobacillus Acidoph/Bulgaricus (Lactobacillus/Acidophilus Tab) 1 tab PO BIDPC [facility] Last Admin: 07/20/24 09:52 Dose: 1 tab Losartan Potassium (Losartan Potassium 50 Mg Tablet) 50 mg PO BID [facility] Last Admin: 07/20/24 09:00 Dose: Not Given Mannitol (Mannitol 25% 12.5 Gm/50 Ml Vial) 12.5 gm IV EVERY HD PRN PRN Reason: Titrate to SBP (MUST DEFINE) Metoprolol Succinate (Metoprolol Xl 100 Mg Tab) 100 mg PO DAILY [facility] Last Admin: 07/20/24 10:39 Dose: 100 mg Nifedipine (Nifedipine Xl 60 Mg Tablet) 60 mg PO BID [facility] Last Admin: 07/20/24 09:00 Dose: Not Given Ondansetron HCl (Ondansetron 4 Mg/2 Ml Vial) 4 mg IV Q6HP PRN PRN Reason: NAUSEA / VOMITING Quetiapine Fumarate (Quetiapine 25 Mg Tab) 50 mg PO BEDTIME [facility] Last Admin: 07/19/24 22:11 Dose: 50 mg Vitamin B Complex/Vit C/Folic Acid (Multivitamins,Therapeut 1 Tab) 1 tab PO DAILY [facility] Last Admin: 07/20/24 09:52 Dose: 1 tab Microbiology Results 07/18/24 11:12 Blood - Blood Aerobic Blood Culture - Preliminary No growth in 24 hours. 07/18/24 11:12 Blood - Blood Anaerobic Blood Culture - Preliminary No growth in 24 hours. 07/18/24 10:57 Blood - Blood Aerobic Blood Culture - Preliminary No growth in 24 hours. 07/18/24 10:57 Blood - Blood Anaerobic Blood Culture - Preliminary No growth in 24 hours. Assessment/ Plan: Nephrology Progress Note No Dyspnea No Chest Pain No Acute Events Overnight He had his foot surgery yesterday He is concerned about coordinating the abx with his dialysis Vital Signs, Medications, Blood Work, and Imaging reviewed in the chart General: In no apparent distress, Oriented x3, Cooperative HEENT: Atraumatic Neck: Supple Respiratory: Clear to auscultation bilaterally, Normal air movement Cardiovascular: No edema, Regular rate/rhythm Gastrointestinal: Soft and benign, Non-distended Musculoskeletal: No clubbing, No contractures Integumentary: No rashes, No cyanosis Neurological: Normal speech Laboratory Data (last 24 hrs) 07/18/24 07/18/24 07/18/24 10:59 10:59 10:59 WBC 12.70 H Hgb 11.1 L Hct 35.5 L Plt Count 396 PT 13.4 H INR 1.20 APTT 33.9 Sodium 134 L Potassium 4.2 BUN 46 H Creatinine 7.53 H Glucose 245 H Total Bilirubin 0.4 AST 30 ALT 30 Alkaline Phosphatase 154 H Imagings Data: [id number] Exam:Foot Right 3 View CLINICAL HISTORY: Right foot pain FINDINGS: Lateral soft tissue ulceration. Destruction involves portions of the fifth metatarsal head. This is compatible with osteomyelitis. Medial subluxation fifth middle phalanx. No fracture visualized. Conclusions/Impression: ESRD on HD -HD TIW HTN with CKD -Continue Losartan -Continue Nifedipine XL -Continue Metoprolol DM I with CKD, Polyneuropathy & Retinopathy -Continue Lantus -RISS DM I with Right Foot Ulcer Right foot osteomyelitis -Surgery following -Continue abx -Wound care as ordered Anemia in CKD -Retacrit qHD CKD MBD Secondary HyperPTH -Continue Phoslo -Continue Ergo Hospitalist and surgery notes reviewed
[2024-07-20] MEDS: VANCOMYCIN 1.75 GM in NA CHLORIDE 0.9% 500 ML IVPB ONE (14:00)
--- NOTE | 2024-07-20 17:00 | P.PN ---
Date of Service: 07/20/24 Subjective Ambulating in the room with the walker No new complaints ROS 10 point ROS as noted above, otherwise negative Physical Exam General: AAO x3, NAD, conversing well HEENT: Atraumatic, PERRLA, Mucous membr. moist/pink, EOMI, Sclerae nonicteric Neck: Supple, 2+ carotid pulse no bruit, Without JVD Respiratory: Clear to auscultation bilaterally, Normal air movement, on RA Cardiovascular: Regular gate and rhythm, Normal S1 S2 present, No murmur noted Gastrointestinal: Normal bowel sounds, No tenderness Musculoskeletal: No tenderness Integumentary: Diabetic ulcer (Diabetic ulceration right lateral foot base of fifth toe) Neurological: Normal speech, Normal strength at 5/5 x4 extr, Normal tone, Normal affect Vitals Reviewed Assessment: Diabetic foot wound to right lateral foot at base of fifth toe, osteomyelitis Diabetes mellitus type 2insulin-dependent with hyperglycemia ESRD on HD MWF-pending possible PD outpatient Hypertension Plan: Diabetic foot wound to right lateral foot at base of fifth toe, osteomyelitis Continue IV antibiotics. red man syndrome with vancomycin Will run Vancomycin in 3 hours and during dialysis Vancomycin and Fortaz (07/20) Infectious disease, general surgery consulted General surgery plan for I and D 07/19, pending [place] PO, lost IV today Likely to need prolonged antibiotics, will assess for possibility of administering with dialysis versus home with home health/ABX Blood culture NGTD right wound culture growing G Pos Cocci in PRS /CHS, gram negative Rods Diabetes mellitus type 2insulin-dependent with hyperglycemia At home takes Levemir 10 units twice daily, sliding scale insulin ACHS Accu-Chek, sliding scale insulin ESRD on HD MWF-pending possible PD outpatient Last had HD 07/17, HD scheduled for today 07/21 Nephrology consulted Reports he was awaiting peritoneal dialysis teaching, has not initiated yet but has catheter in place Hypertension Resume home medications when verified hydralazine PRN DVT PPX: Heparin subcu Code status: Full Discharge Plan: Home Plan to discharge in: 48 Hours <Susanna Odonnell - Last Filed: 07/20/24 17:34> Patient seen and examined. Plan of care discussed with Ms. Odonnell. Right lateral foot ulcer status post debridement. X-ray suggests osteomyelitis. Patient has renal disease on hemodialysis. He will need 6 weeks of IV antibiotics for osteomyelitis which can hopefully be given after dialysis. Preliminary deep tissue wound cultures growing gram-negative rods. Gram stain shows gram-positive cocci and gram-negative rods. Patient reports "red man" syndrome with vancomycin. Case discussed with nephrology Dr. Oneal and pharmacist. Patient should benefit from 6 weeks of IV vancomycin with dialysis. General consensus is to try on IV vancomycin at a much slower rate to prevent "red man" syndrome to see if patient will tolerate it. Options for gram-negative bacteria infection include ceftazidime and gentamicin with dialysis. Analgesics as needed. Local wound General Surgery Dr. Deshpande to follow. <rufus hutchinson - Last Filed: 07/20/24 18:40>
[2024-07-20 17:35] VITALS: BMI 25.9
--- NOTE | 2024-07-20 20:31 | CON ---
History Of Present Illness: This is a 34-year-old male, I was consulted for right foot osteomyelitis on the fifth MTP region. The patient is hemodialysis patient coming in with worsening pain. Denies any headache, nausea, vomiting, chest pain, abdominal pain, constipation, or diarrhea. Past Medical History: As per HPI plus diabetes mellitus, hypertension. Social History: Nonsmoker. Nondrinker. Family History: Noncontributory. Medications: Clindamycin and cefepime. See MARs for other medications. Allergies: SULFA DRUGS AND ASPIRIN. Review of Systems: A 10-point review was performed. Physical Examination: General: This is a 34-year-old male, lying in bed, family by the bedside, not in any acute cardiopulmonary distress. Vital Signs: Temperature 98, pulse 82, respirations 20, blood pressure 160/70. HEENT: Unremarkable. Neck: Supple. Lungs: Basal crackles. Heart: S1, S2. Regular. Abdomen: Soft, nontender. Bowel sounds present. Extremities: Lower extremity edema noted. Foot wound noted. Laboratory Data: Shows WBC 8.3, hemoglobin 9.3, platelets are 341. Chemistry shows BUN of 51, creatinine of 8.57. Blood cultures are negative. Wound cultures are growing 3+ gram negative rods. Foot x-ray from July 18 shows patient has left lateral soft tissue ulceration, destruction involving portion of the fifth metatarsal head compatible with the osteomyelitis, medial subluxation of fifth middle phalanx. Assessment And Plan: Right foot osteomyelitis and cellulitis, chronic diabetic foot ulceration, leukocytosis, anemia of chronic disease, end-stage renal disease. Continue antibiotic for 6 weeks. Agree with the antibiotic selection. We will follow the patient closely. Thank you, Dr. Fonseca, for consult. NF/MODL Voice ID: [id number] Report ID: [id number] DEDRICK
[2024-07-20] MEDS: ACETAMINOPHEN 325 MG TABLET PO PRN (23:36)
[2024-07-21 06:26] LABS: Absolute Basophils 0.1 K/uL (0-0.5); Absolute Eosinophils 0.4 K/uL (0-0.5); Absolute Lymphocytes (CBC) 1.8 K/uL (0.7-4.9); Absolute Neutrophil 4.4 K/uL (1.8-8.0); Basophils % 1.9 % (0-1.3); Eosinophils % 5.3 % (0-4.4); Hematocrit 33.1 % (39.6-49.0); Hemoglobin 10.6 g/dL (13.6-17.9); Lymphocytes % 22.9 % (15.3-44.8); MCV 84.3 fL (80-100); Monocytes % 13.3 % (3.3-12.3); Neutrophils % 56.6 % (41.7-73.7); Nucleated Red Blood Cells % 0.1 % (0-0); Platelets 480 thou/uL (152-406); RBC Red Blood Cell Count 3.93 M/uL (4.33-5.43); Red Cell Distribution Width 15.9 % (12.1-15.2)
[2024-07-21 07:00] LABS: Anion Gap 9.9 mEq/L (5.0-15.0); BUN Blood Urea Nitrogen 52 mg/dL (7-18); Bicarbonate 26 mEq/L (21-32); Glomerular Filtration Rate 7 ml/min (=/>90); Glucose Level 167 mg/dL (74-106); Potassium 3.9 mEq/L (3.5-5.1); Sodium Level 137 mEq/L (136-145)
[2024-07-21] MEDS ORDERED: EPOETIN ALFA 10,000 UNIT/ML VIAL IV SCH (09:45)
--- NOTE | 2024-07-21 11:02 | P.PN ---
Date of Service: 07/21/24 Subjective Standing at the sink to bath with wipes lost IV yesterday, [place] increased for better pain control Plan for Vancomycin and ceftazidime with dialysis ROS 10 point ROS as noted above, otherwise negative Physical Exam General: AAO x3, NAD, conversing well HEENT: Atraumatic, PERRLA, Mucous membr. moist/pink, EOMI, Sclerae nonicteric Neck: Supple, 2+ carotid pulse no bruit, Without JVD Respiratory: Clear to auscultation bilaterally, Normal air movement, on RA Cardiovascular: Regular gate and rhythm, Normal S1 S2 present, No murmur noted Gastrointestinal: Normal bowel sounds, No tenderness Musculoskeletal: No tenderness Integumentary: Diabetic ulcer (Diabetic ulceration right lateral foot base of fifth toe) Neurological: Normal speech, Normal strength at 5/5 x4 extr, Normal tone, Normal affect Vitals Reviewed Assessment: Diabetic foot wound to right lateral foot at base of fifth toe, osteomyelitis Diabetes mellitus type 2insulin-dependent with hyperglycemia ESRD on HD MWF-pending possible PD outpatient Hypertension Plan: Diabetic foot wound to right lateral foot at base of fifth toe, osteomyelitis Continue IV antibiotics. red man syndrome with vancomycin Will run Vancomycin in 3 hours and during dialysis Vancomycin and Fortaz (07/20) Infectious disease, general surgery consulted General surgery plan for I and D 07/19, pending [place] PO, lost IV today Likely to need prolonged antibiotics, will assess for possibility of administering with dialysis versus home with home health/ABX Blood culture NGTD right wound culture growing G Pos Cocci in PRS /CHS, gram negative Rods Diabetes mellitus type 2insulin-dependent with hyperglycemia At home takes Levemir 10 units twice daily, sliding scale insulin ACHS Accu-Chek, sliding scale insulin ESRD on HD MWF-pending possible PD outpatient Last had HD 07/17, HD scheduled for today 07/21 Nephrology consulted Reports he was awaiting peritoneal dialysis teaching, has not initiated yet but has catheter in place Hypertension Resume home medications when verified hydralazine PRN DVT PPX: Heparin subcu Code status: Full Discharge Plan: Home Plan to discharge in: 48 Hours
[2024-07-21] MEDS: HYDROCODONE/APAP 10/325 TAB PO PRN (11:25)
--- NOTE | 2024-07-21 11:33 | P.PN ---
Nephrology No dyspnea No chest pain Reports Rt foot surgical site pain Vitals, medications, blood work and imaging reviewed in the chart NAD. Normal Respiratory Effort. RRR. ND Abd. No C/C. LE Edema 1+. Rt foot extensively wrapped AAO. Normal speech. Stage V CKD likely ESRD Proteinuria -TDC and PD Catheter present -HD today per OP regimen Metab profile stable HTN with CKD -Continue meds, accelerated still at times, f/u post HD BP DM I with CKD, Polyneuropathy, Retinopathy and Right Charcot Foot with ulcer -Rt lateral food wound s/p debridment with concern for osteo -Would cultures noted, agree with Ceftazidime given on HD, will need 4-6 week course Anemia in CKD -Hold BHUMI dose since Hb > 10 and hypertensive
--- NOTE | 2024-07-21 15:25 | P.PN ---
Date of Service: 07/21/24 Subjective Standing at the sink to bathe with wipes lost IV yesterday, [place] increased for better pain control Plan for Vancomycin and ceftazidime with dialysis ROS 10 point ROS as noted above, otherwise negative Physical Exam General: Awake, alert, and oriented x3, NAD, conversing well HEENT: Atraumatic, PERRLA, Mucous membr. moist/pink, EOMI, Sclerae nonicteric Neck: Supple, 2+ carotid pulse no bruit, Without JVD Respiratory: Clear to auscultation bilaterally, Non-labored breathing, on RA Cardiovascular: Regular gate and rhythm, Normal S1 S2 present, No murmur noted Gastrointestinal: Normal bowel sounds, NT/ND Musculoskeletal: No tenderness Integumentary: Diabetic ulcer (Diabetic ulceration right lateral foot base of fifth toe) Neurological: Normal speech, Normal strength at 5/5 x4 extr, Normal tone, Normal affect Vitals Reviewed Assessment: Diabetic foot wound to right lateral foot at base of fifth toe, osteomyelitis Diabetes mellitus type 2insulin-dependent with hyperglycemia ESRD on HD MWF-pending possible PD outpatient Hypertension Plan: Diabetic foot wound to right lateral foot at base of fifth toe, osteomyelitis Continue IV antibiotics. red man syndrome with vancomycin Vancomycin and Fortaz (07/21) during dialysis Infectious disease, general surgery Following Dr. Kumar consulted General surgery plan for I and D 07/19 [place] PO, lost IV today Likely to need prolonged antibiotics, will assess for possibility of administering with dialysis versus home with home health/ABX Blood culture NGTD right wound culture Escherichia Coli and streptococcus agalactiae Grp B Diabetes mellitus type 2insulin-dependent with hyperglycemia At home takes Levemir 10 units twice daily, sliding scale insulin ACHS Accu-Chek, sliding scale insulin ESRD on HD MWF-pending possible PD outpatient Last had HD 07/17, HD scheduled for today 07/21, Trial antibiotic tolerance Nephrology consulted Reports he was awaiting peritoneal dialysis teaching, has not initiated yet but has catheter in place Hypertension Resume home medications when verified hydralazine PRN DVT PPX: Heparin subcu Code status: Full Discharge Plan: Home Plan to discharge in: 48 Hours <Susanna Odonnell - Last Filed: 07/21/24 15:13> Patient seen and examined. Plan of care discussed with Ms. Odonnell. Wound culture growing E. coli and streptococcus agalactiae. Patient with 6 weeks of IV antibiotics to be given with hemodialysis. Planning IV ceftazidime which should cover both E. coli and the streptococcal infection. Analgesics as needed. <rufus hutchinson - Last Filed: 07/21/24 17:15>
[2024-07-21] MEDS: CEFTAZIDIME 1 GM in NA CHLORIDE 0.9% 100 ML IV SCH (17:11)
[2024-07-21] MEDS: VANCOMYCIN 1 GM in NA CHLORIDE 0.9% 250 ML IVPB SCH (17:11)
[2024-07-22 08:57] VITALS: BP 133/81
[2024-07-22 08:59] LABS: Absolute Basophils 0.1 K/uL (0-0.5); Absolute Eosinophils 0.4 K/uL (0-0.5); Absolute Lymphocytes (CBC) 1.3 K/uL (0.7-4.9); Absolute Monocytes 0.9 K/uL (0.1-1.3); Absolute Neutrophil 5.3 K/uL (1.8-8.0); Basophils % 1.1 % (0-1.3); Eosinophils % 4.6 % (0-4.4); Hematocrit 37.5 % (39.6-49.0); Hemoglobin 11.9 g/dL (13.6-17.9); Lymphocytes % 15.9 % (15.3-44.8); MCH 26.8 pg (27.0-35.0); MCHC 31.9 g/dL (32.0-36.0); MCV 84.2 fL (80-100); MPV 7.1 fL (7.6-11.3); Monocytes % 11.3 % (3.3-12.3); Neutrophils % 67.1 % (41.7-73.7); Platelets 511 thou/uL (152-406); RBC Red Blood Cell Count 4.45 M/uL (4.33-5.43); Red Cell Distribution Width 16.1 % (12.1-15.2)
--- NOTE | 2024-07-22 10:06 | P.DS ---
Admission Date: 07/18/24 Discharge Date: 07/22/24 Disposition: ROUTINE DISCHARGE Discharge Condition: GOOD Reason for Admission: Osteomyelitis Brief History of Present Illness: Diagnosis Diabetic foot wound to right lateral foot at base of fifth toe, osteomyelitis Diabetes mellitus type 2insulin-dependent with hyperglycemia ESRD on HD MWF-pending possible PD outpatient Proteinuria Hypertension HPI 07/18/2024 Tan Marlow is a 34-year-old recently initiated on HD presents emergency department chief complaint of right foot wound. He has had the wound for some time now but has been getting worse and causing increasing pain which prompted his visit to the emergency department. He was evaluated in the emergency department his labs were significant for white blood cell count 12.7 hemoglobin 11.1 creatinine 7.53 GFR 9 potassium 4.2 bicarb 22 lactic acid 0.9 x-ray of the right foot shows distraction involves portion of the fifth metatarsal head. This is compatible with osteomyelitis. Patient started on broad-spectrum antibiotics, ED provider wishes to admit patient for further evaluation and management. Hospital Course: Tan Marlow is a pleasant 34 year old male with a past medical history significant for HTN, ESRD, DM- IDDM who was admitted to the [facility] on 07/18/24 for worsening right foot wound/Osteomylitis. Tan presented to the ED with chief complaint of worsening right foot wound. Right foot x-ray showing osteomyelitis involving portions of the fifth metatarsal head. Dr Deshpande consulted and performed a debridement on right lateral foot on 07/19. Wet to dry dressings daily then wound vac will be applied outpatient with Dr. Deshpande. Wound cultures resulted after several days, consultation with nephrology and Dr. Kumar deciding with Fortaz 1 gram with dialysis MWF for six weeks to end September 01. He continued scheduled dialysis during this admission. Tan is ambulating independently with a walker and independent with ADLs. He is tolerating PO diet, conversing well and hemodynamically stable for discharge. On 07/22/24, Tan was seen on morning rounds and deemed medically stable for discharge with family support. Tan was discharged with instructions to schedule follow-up appointments with PCP, Dr. Deshpande, and Dr. Oneal. Carlos was provided prescriptions for Fortaz with dialysis, docusate, and norco. Physical Exam General: AAO x3, NAD, conversing well HEENT: Atraumatic, PERRLA, Mucous membr. moist/pink, EOMI, Sclerae nonicteric Neck: Supple, 2+ carotid pulse no bruit, Without JVD Respiratory: Clear to auscultation bilaterally, Non-labored breathing, on RA Cardiovascular: Normal S1 S2 present, RRR, No murmur noted Gastrointestinal: Normal bowel sounds, NT/ND, soft on palpation Musculoskeletal: No tenderness Integumentary: Diabetic ulcer (Diabetic ulceration right lateral foot base of fifth toe), dressing CDI Neurological: Normal speech, Normal strength at 5/5 x4 extr, Normal tone, Normal affect Vital Signs/Physical Exam: Temp Pulse Resp BP Pulse Ox 98 F 81 16 133/81 99 07/22/24 04:00 07/22/24 08:54 07/22/24 08:53 07/22/24 08:54 07/22/24 08:53 Laboratory Data at Discharge: WBC 7.90 thou/uL (4.3-10.9) 07/22/24 08:43 Hgb 11.9 g/dL (13.6-17.9) L D 07/22/24 08:43 Hct 37.5 % (39.6-49.0) L 07/22/24 08:43 Plt Count 511 thou/uL (152-406) H 07/22/24 08:43 PT 13.4 SECONDS (9.4-12.5) H 07/18/24 10:59 INR 1.20 07/18/24 10:59 APTT 33.9 SECONDS (24.3-36.9) 07/18/24 10:59 Sodium 133 mEq/L (136-145) L 07/22/24 06:40 Potassium 4.0 mEq/L (3.5-5.1) 07/22/24 06:40 BUN 34 mg/dL (7-18) H 07/22/24 06:40 Creatinine 7.17 mg/dL (0.70-1.30) H 07/22/24 06:40 Glucose 224 mg/dL (74-106) H 07/22/24 06:40 Total Bilirubin 0.4 mg/dL (0.2-1.0) 07/18/24 10:59 AST 30 U/L (15-37) 07/18/24 10:59 ALT 30 U/L (16-61) 07/18/24 10:59 Alkaline Phosphatase 154 U/L (45-117) H 07/18/24 10:59 Home Medications: Atorvastatin Calcium 40 mg PO BEDTIME 06/03/24 Buproprion S.r. [Wellbutrin Sr*] 150 mg PO DAILY 06/03/24 Insulin Aspart [Novolog Flexpen] See Protocol SQ ACHS 06/03/24 Metoprolol Succinate 1 tab PO DAILY 06/03/24 NIFEdipine [Nifedipine ER] 60 mg PO BID 06/03/24 cloNIDine HCL [Clonidine HCl] 0.1 mg PO TID 06/03/24 Ferrous Sulfate 325 mg PO DAILY 30 Days #30 tab 06/10/24 Losartan Potassium [Cozaar*] 50 mg PO BID 30 Days #60 tab 06/10/24 Quetiapine Fumarate [Seroquel] 50 mg PO BEDTIME 30 Days #30 tab 06/10/24 Calcium Acetate 667 mg PO TID 07/18/24 Hydralazine [Apresoline*] 100 mg PO TID 07/18/24 Insulin Glargine,Hum.rec.anlog [Lantus] 10 unit SQ BID 07/18/24 Docusate [Colace Cap*] 100 mg PO BID 30 Days #1 bottle 07/22/24 Hydrocodone 5/APAP 325 [[place] 5/325] 1 tab PO Q6H PRN #15 tab 07/22/24 New Medications: Docusate [Colace Cap*] 100 mg PO BID 30 Days #1 bottle Hydrocodone 5/APAP 325 [[place] 5/325] 1 tab PO Q6H PRN #15 tab PRN Reason: Pain Physician Discharge Instructions: 1. Please call and schedule a follow-up appointment with your PCP in 3-5 days - Please follow-up with your PCP for medication refills/adjustments 2. Please call and schedule a follow-up appointment with Dr. Deshpande in one week -Wet to dry dressing until seen by Dr. Deshpande for the wound vac application 3. Please call and schedule a follow-up appointment with Dr. Oneal in one week - continue dialysis as scheduled -Fortaz antibiotic every dialysis day and during dialysis -Discuss if lasix should be continued -Check your blood pressure twice daily to safely take your blood pressure medications 4. Continue Renal diet 5. No activity restrictions 6. Return to the ED if symptoms worsen New medications Fortaz 1 gram every dialysis day with dialysis (Wednesday, Wednesday, Wednesday) End date September 01. To be renally dosed per Nephrology as needed. Docusate 100 mg twice daily as needed, called into your pharmacy Stopped lasix- Please discuss with nephrology if you are to continue lasix Diet: Regular Activity: Ad bernardo Followup: Javon Oneal DO [ACTIVE - CAN ADMIT] - 1 Week (call to schedule an appointment) Yoseph Deshpande MD [ACTIVE - CAN ADMIT] - 1 Week (call to schedule an appointment) NONE,NONE [Primary Care Provider] - (fopllow up in 3-5 days)
[2024-07-22 10:13] VITALS: TEMP 97.9; O2SAT 99
== END 2024-07-22 11:55 | disposition home or self-care (01) | DRG 264 ==
LOC: ER 10:04 → ERHOLD 12:45 → 4TH 13:30
PROVIDERS: ADMIT Internal Medicine; ATTEND Internal Medicine
PROC: 5A1D70Z Performance of Urinary Filtration, Intermittent, Less than 6 Hours Per Day (ICD-10-PCS; 2024-07-18)
PROC: 02HV33Z Insertion of Infusion Device into Superior Vena Cava, Percutaneous Approach (ICD-10-PCS; 2024-07-18)
PROC: 0JBQ0ZZ Excision of Right Foot Subcutaneous Tissue and Fascia, Open Approach (ICD-10-PCS; principal; 2024-07-19 15:15)
DX: E11.52 Type 2 diabetes mellitus with diabetic peripheral angiopathy with gangrene (principal); N18.6 End stage renal disease; I12.0 Hypertensive chronic kidney disease with stage 5 chronic kidney disease or end stage renal disease; M86.171 Other acute osteomyelitis, right ankle and foot; N25.81 Secondary hyperparathyroidism of renal origin; L03.115 Cellulitis of right lower limb; E11.69 Type 2 diabetes mellitus with other specified complication; E11.22 Type 2 diabetes mellitus with diabetic chronic kidney disease; E11.319 Type 2 diabetes mellitus with unspecified diabetic retinopathy without macular edema; E11.65 Type 2 diabetes mellitus with hyperglycemia; E11.42 Type 2 diabetes mellitus with diabetic polyneuropathy; E11.610 Type 2 diabetes mellitus with diabetic neuropathic arthropathy; E11.621 Type 2 diabetes mellitus with foot ulcer; L97.519 Non-pressure chronic ulcer of other part of right foot with unspecified severity; D63.1 Anemia in chronic kidney disease; B95.5 Unspecified streptococcus as the cause of diseases classified elsewhere; B96.20 Unspecified Escherichia coli [E. coli] as the cause of diseases classified elsewhere; Z99.2 Dependence on renal dialysis; Z88.2 Allergy status to sulfonamides; Z79.4 Long term (current) use of insulin; Z88.1 Allergy status to other antibiotic agents; Z28.310 Unvaccinated for COVID-19; Z79.899 Other long term (current) drug therapy; Z91.158 Patient's noncompliance with renal dialysis for other reason
CPT/HCPCS: 36415; 80048; 80053; 80202; 82947; 83605; 85025; 85610; 85730; 87040; 87070; 87075; 87077; 87186; 87205; 87340; 88304; 90935; 93005; 96365; 96367; 99285; J0360; J0692; J0713; J1171; J1644; J2003; J2250; J2704; J7040; J7050; Q4081

== ENCOUNTER 2024-08-25 18:06 | Emergency (ER) | payer OTHER ==
[2024-08-25 18:43] LABS: Absolute Basophils 0.1 K/uL (0-0.5); Absolute Eosinophils 0.4 K/uL (0-0.5); Absolute Lymphocytes (CBC) 1.6 K/uL (0.7-4.9); Absolute Monocytes 0.9 K/uL (0.1-1.3); Absolute Neutrophil 4.1 K/uL (1.8-8.0); Basophils % 1.3 % (0-1.3); Eosinophils % 6.1 % (0-4.4); Hematocrit 39.3 % (39.6-49.0); Hemoglobin 12.4 g/dL (13.6-17.9); Lymphocytes % 22.3 % (15.3-44.8); MCH 26.9 pg (27.0-35.0); MCHC 31.6 g/dL (32.0-36.0); MPV 8.2 fL (7.6-11.3); Monocytes % 12.2 % (3.3-12.3); Neutrophils % 58.1 % (41.7-73.7); Platelets 180 thou/uL (152-406); RBC Red Blood Cell Count 4.62 M/uL (4.33-5.43); Red Cell Distribution Width 17.5 % (12.1-15.2)
[2024-08-25 18:47] LABS: PT Prothrombin Time 11.6 SECONDS (9.4-12.5); PTT, Activated Partial Thromb 33.7 SECONDS (24.3-36.9); Protime INR 1.04
--- NOTE | 2024-08-25 18:58 | RAD REPORT ---
Procedure: Chest Single View HISTORY: Seizure COMPARISON: May 2024 FINDINGS: The lungs appear clear of acute infiltrate. No significant pleural effusion noted. The heart is normal size. Central venous catheter in place. IMPRESSION: No acute abnormality is displayed.
--- NOTE | 2024-08-25 19:02 | RAD REPORT ---
EXAM: CT brain without contrast HISTORY: Seizure COMPARISON: None TECHNIQUE: Multiple contiguous axial images were obtained and a CT of the brain without contrast.. Sagittal and coronal reconstruction performed. Automated exposure control, adjustment of the mA and/or kV according to patient size, and/or iterative reconstruction. Unless otherwise specified, incidental f indings do not require dedicated imaging follow-up FINDINGS: An intracranial bleed is not seen Mild cerebellar tonsillar ectopia Ventricles are normal caliber No extra-axial fluid collection noted No significant hypodensity within the brain No fluid within the visualized sinuses or mastoids noted. IMPRESSION: No acute intracranial abnormality noted. If the patient continues to have symptoms to suggest an acute intracranial abnormality then MRI of th e brain would be recommended.
[2024-08-25 19:10] LABS: ALT/SGPT 93 U/L (16-61); AST/SGOT 58 U/L (15-37); Albumin 3.4 g/dL (3.4-5.0); Albumin/Globulin Ratio 0.6 (1.1-1.8); Alkaline Phosphatase 156 U/L (45-117); Anion Gap 12.2 mEq/L (5.0-15.0); BUN Blood Urea Nitrogen 33 mg/dL (7-18); Bicarbonate 25 mEq/L (21-32); Bilirubin Direct < 0.2 mg/dL (0-0.2); Bilirubin Indirect, Calculated 0.1 mg/dL (0.2-0.8); Bilirubin Total 0.3 mg/dL (0.2-1.0); Globulin 5.7 g/dL (2.3-3.5); Glomerular Filtration Rate 13 ml/min (=/>90); Glucose Level 80 mg/dL (74-106); Magnesium 2.1 mg/dL (1.6-2.4); Potassium 4.2 mEq/L (3.5-5.1); Protein, Total 9.1 g/dL (6.4-8.2); Sodium Level 140 mEq/L (136-145); Troponin High Sensitivity 30.6 pg/mL (<58.9)
--- NOTE | 2024-08-25 19:30 | EDPHYS ---
Physician Documentation [facility] Name: Tan Marlow Age: 34 yrs Sex: Male : 1990 Arrival Date: 08/25/2024 Time: 18:06 Bed 4 Private MD: ED Physician Zhou Isbell HPI: 08/25 18:18 This 34 yrs old Black Male presents to ER via Unassigned with complaints of seizure. sp3 18:18 34-year-old male with history of diabetes and hypertension as well as end-stage renal sp3 disease on hemodialysis presents to the ED with chief complaint seizure at home today. Patient initially had a seizure on Wednesday 5 days ago while at dialysis and he states a nurse told him that "that happens on dialysis all the time and he does not need to worry about it". Patient states he therefore did not seek medical attention. Today the seizure happened again and he sought medical attention and was brought here. EMS arrived to find patient in a postictal state hypoglycemic at 50 to which she was given oral glucose once he came around. Patient has no complaints at the moment except feeling weak. He denies any headache, neck pain, vision changes, memory loss, injury from seizure, chest pain, shortness of breath, vomiting, diarrhea, or any other signs or symptoms on ROS at this time.. Historical: - Allergies: 18:21 Aspirin; tm6 18:21 Bactrim; tm6 18:21 Sulfa (Sulfonamide Antibiotics); tm6 18:21 Vancomycin; tm6 - PMHx: 18:21 diabetes mellitus; Hypertensive disorder; kidney disease; MWF Dialysis (kidney tm6 disease); Seizure; - PSHx: 18:21 right foot; tm6 - Immunization history:: Flu vaccine status is unknown. - Infectious Disease History:: Denies. - Social history:: Smoking status: unknown. ROS: 18:19 Constitutional: Negative for fever, chills, and weight loss, Eyes: Negative for injury, sp3 pain, redness, and discharge, ENT: Negative for injury, pain, and discharge, Neck: Negative for injury, pain, and swelling, Cardiovascular: Negative for chest pain, palpitations, and edema, Respiratory: Negative for shortness of breath, cough, wheezing, and pleuritic chest pain, Abdomen/GI: Negative for abdominal pain, nausea, vomiting, diarrhea, and constipation, Back: Negative for injury and pain, MS/Extremity: Negative for injury and deformity, Skin: Negative for injury, rash, and discoloration, Psych: Negative for depression, anxiety, suicide ideation, homicidal ideation, and hallucinations, Allergy/Immunology: Negative for hives, rash, and allergies, Endocrine: Negative for neck swelling, polydipsia, polyuria, polyphagia, and marked weight changes, Hematologic/Lymphatic: Negative for swollen nodes, abnormal bleeding, and unusual bruising, 18:19 All other systems are negative, Exam: 18:19 Constitutional: This is a well developed, well nourished patient who is awake, alert, sp3 and in no acute distress. Head/Face: Normocephalic, atraumatic. Eyes: Pupils equal round and reactive to light, extra-ocular motions intact. Lids and lashes normal. Conjunctiva and sclera are non-icteric and not injected. Cornea within normal limits. Periorbital areas with no swelling, redness, or edema. ENT: Nares patent. No nasal discharge, no septal abnormalities noted. External auditory canals are clear. Oropharynx with no redness, swelling, or masses, exudates, or evidence of obstruction, uvula midline. Mucous membranes moist. Neck: Trachea midline, no thyromegaly or masses palpated, and no cervical lymphadenopathy. Supple, full range of motion without nuchal rigidity, or vertebral point tenderness. No Meningismus. Chest/axilla: Normal chest wall appearance and motion. Nontender with no deformity. No lesions are appreciated. Cardiovascular: Regular rate and rhythm with a normal S1 and S2. No gallops, murmurs, or rubs. Normal PMI, no JVD. No pulse deficits. Respiratory: Lungs have equal breath sounds bilaterally, clear to auscultation and percussion. No rales, rhonchi or wheezes noted. No increased work of breathing, no retractions or nasal flaring. Abdomen/GI: Soft, non-tender, with normal bowel sounds. No distension or tympany. No guarding or rebound. No evidence of tenderness throughout. Back: No spinal tenderness. No costovertebral tenderness. Full range of motion. Skin: Warm, dry with normal turgor. Normal color with no rashes, no lesions, and no evidence of cellulitis. MS/ Extremity: Pulses equal, no cyanosis. Neurovascular intact. Full, normal range of motion. Neuro: Awake and alert, GCS 15, oriented to person, place, time, and situation. Cranial nerves II-XII grossly intact. Motor strength 5/5 in all extremities. Sensory grossly intact. Cerebellar exam normal. Normal gait. Psych: Awake, alert, with orientation to person, place and time. Behavior, mood, and affect are within normal limits. 08/26 19:07 ECG was reviewed by the Attending Physician. EKG at 2034 sinus rhythm at rate of 70. sp4 Left ventricular hypertrophy otherwise unremarkable Vital Signs: 08/25 18:19 BP 159 / 98; Pulse 70; Resp 16; Temp 97.5(O); Pulse Ox 100% on R/A; MAP 117 mmHg; tm6 Weight 79.5 kg; Pain 0/10; 19:25 BP 175 / 111; Pulse 75; Resp 18; Pulse Ox 100% on R/A; bm8 19:30 BP 166 / 104; Pulse 70; Resp 16; Pulse Ox 100% on R/A; bm8 20:00 BP 153 / 95; Pulse 68; Resp 16; Pulse Ox 100% on R/A; bm8 20:30 BP 141 / 83; Pulse 68; Resp 17; Pulse Ox 100% on R/A; bm8 21:00 BP 136 / 81; Pulse 66; Resp 16; Pulse Ox 100% on R/A; bm8 21:30 BP 129 / 81; Pulse 68; Resp 15; Pulse Ox 99% on R/A; bm8 18:19 Pain Scale: Adult tm6 Nikko Coma Score: 18:27 Eye Response: spontaneous(4). Motor Response: obeys commands(6). Verbal Response: tm6 oriented(5). Total: 15. MDM: 18:11 Medical Screening Exam initiated sp3 18:20 Data reviewed: vital signs, nurses notes, lab test result(s), EKG, radiologic studies. sp3 ED course: 34-year-old male with recurrent seizure and no prior workup. Differential diagnosis includes electrolyte abnormality, seizure, intracranial hemorrhage or mass, infection, among others. Workup will include CT scan of the head, routine labs and general supportive care. Disposition pending workup and patient course with possible admission for neurologic consultation.. 19:26 ED course: CT scan and labs without significant abnormality. Renal function as sp3 expected. I discussed the case with Dr. Jeffers and due to hospital not currently having EEG or MRI capability over the weekend the plan is to start him on Keppra and Dr. Jeffers will see him in clinic on Wednesday. We will load him with 500 mg IV and 250 p.o. twice daily as per his recommendation. Patient has had no further seizures here in the ED. We will safely discharge him home with driving and machinery precautions explained to both him and his family.. 21:35 ED course: Patient was prescribed Keppra 250 mg p.o. twice daily by Dr. Garcia. We sp4 suspect seizure was result of hypoglycemia. Patient was found to have stable blood sugars while in the ER. Will recommend discharge home with p.o. Keppra and follow-up with neurology Dr. Jeffers.. 12 18:21 Order name: Basic Metabolic Panel; Complete Time: 19:17 sp3 08/25 18:21 Order name: CBC with Diff; Complete Time: 19:07 3 08/25 18:21 Order name: Hepatic Function; Complete Time: 19:17 sp3 08/25 18:21 Order name: Magnesium; Complete Time: 19:17 sp3 08/25 18:21 Order name: Protime (+inr); Complete Time: 19:07 sp3 08/25 18:21 Order name: Ptt, Activated; Complete Time: 19:07 sp3 08/25 18:21 Order name: Troponin High Sensitivity; Complete Time: 19:17 sp3 08/25 18:29 Order name: glucometer results - FOR PT WITH NO ID; Complete Time: 19:07 tm6 08/25 19:40 Order name: Glucose, Ancillary Testing; Complete Time: 21:35 EDMS 08/25 20:23 Order name: Glucose, Ancillary Testing; Complete Time: 21:35 EDMS 08/25 21:22 Order name: Glucose, Ancillary Testing; Complete Time: 21:35 EDMS 08/25 18:21 Order name: CT Head Brain wo Cont; Complete Time: 19:07 sp3 08/25 18:21 Order name: Chest Single View XRAY; Complete Time: 19:07 sp3 08/25 18:21 Order name: Cardiac monitoring; Complete Time: 18:36 sp3 08/25 18:21 Order name: EKG - Nurse/Tech; Complete Time: 20:38 sp3 12 18:21 Order name: IV Saline Lock; Complete Time: 18:36 sp3 12 18:21 Order name: Labs collected and sent; Complete Time: 18:36 sp3 12 18:21 Order name: NPO; Complete Time: 18:36 sp3 12 18:21 Order name: O2 Per Protocol; Complete Time: 18:36 sp3 08/25 18:21 Order name: O2 Sat Monitoring; Complete Time: 18:36 sp3 EC:34 Rate is 70 beats/min. Rhythm is regular, Normal Sinus Rhythm. QRS [place] is Normal. [place] sp4 interval is normal. QRS interval is normal. QT interval is normal. T waves are Inverted in leads V5, V6. No ST changes noted. Clinical impression: No evidence of ischemia. Interpreted by me. Reviewed by me. Administered Medications: 19:46 Drug: Keppra IV 500 mg IV at calculated rate once Route: IV; Rate: calculated rate; al5 Site: right forearm; 20:15 Follow up: Response: No adverse reaction; IV Status: Completed infusion; IV Intake: al5 100ml Point of Care Testing: Blood Glucose: 18:27 Blood Glucose: 91 mg/dL; tm6 Ranges: Critical Glucose Levels:Adult <50 mg/dl or >400 mg/dl <40 mg/dl or >180 mg/dl Disposition Summary: 08/25/24 21:34 Discharge Ordered Notes: Location: Home(08/25/24 21:34) sp4 Problem: new sp4 Symptoms: have improved sp4 Condition: Stable(08/25/24 21:34) sp4 Diagnosis - Other seizures sp4 - New Onset Generalized seizures sp4 Followup: sp4 - With: Thompson Jeffers MD - When: 7 - 10 days - Reason: Recheck today's complaints Discharge Instructions: - Discharge Summary Sheet sp4 - Seizure, Adult sp4 Forms: - Patient Portal Instructions sp4 Signatures: Dispatcher [employer] Eliel Yancey MD MD sp3 Zhou Isbell MD MD sp4 Sharon Avina RN RN tm6 Kristi Castellano RN RN al5 Corrections: (The following items were deleted from the chart) 18:22 18:22 BASIC METABOLIC PANEL+C.LAB.BRZ ordered. EDMS EDMS 18:22 18:22 CBC+H.LAB.BRZ ordered. EDMS EDMS 18:22 18:22 HEPATIC FUNCTION+C.LAB.BRZ ordered. EDMS EDMS 18:22 18:22 MAGNESIUM+C.LAB.BRZ ordered. EDMS EDMS 18:22 18:22 PROTIME (+INR)+COAG.LAB.BRZ ordered. EDMS EDMS 18:22 18:22 PTT, ACTIVATED+COAG.LAB.BRZ ordered. EDMS EDMS 18:22 18:22 Troponin High Sensitivity+C.LAB.BRZ ordered. EDMS EDMS 18:22 18:22 URINE DRUG SCREEN+UC.LAB.BRZ ordered. EDMS EDMS 18:22 18:22 Head Brain Wo Cont+CT.RAD.BRZ ordered. EDMS EDMS 18:22 18:22 Chest Single View+RAD.RAD.BRZ ordered. EDMS EDMS 20:17 19:30 Home sp3 sp4 20:17 19:30 Stable sp3 sp4 20:17 19:30 New onset multiple seizures sp3 sp4
--- NOTE | 2024-08-25 19:30 | ER ---
Nurse's Notes [facility] Name: Tan Marlow Age: 34 yrs Sex: Male : 1990 Arrival Date: 08/25/2024 Time: 18:06 Bed 4 Private MD: Diagnosis: Other seizures;New Onset Generalized seizures Presentation: 08/25 18:19 Chief complaint: EMS states: patient found seizing at home. Did not hit head, not tm6 complaining of pain. Had first ever seizure on Wednesday. Received HD today. Upon EMS arrival was in post ictal state with GCS 13, BGL 50. 15g oral glucose given, repeat BGL 60. Coronavirus screen: Client denies travel out of the [place] in the last 14 days. Ebola Screen: Patient negative for fever greater than or equal to 101.5 degrees Fahrenheit, and additional compatible Ebola Virus Disease symptoms Patient denies exposure to infectious person. Patient denies travel to an Ebola-affected area in the 21 days before illness onset. No symptoms or risks identified at this time. Initial Sepsis Screen: Does the patient meet any 2 criteria? No. Patient's initial sepsis screen is negative. Does the patient have a suspected source of infection? No. Patient's initial sepsis screen is negative. Risk Assessment: Do you want to hurt yourself or someone else? Patient reports no desire to harm self or others. Onset of symptoms was August 25, 2024. 18:19 Method Of Arrival: EMS: [facility] tm6 18:19 Acuity: LULY 3 tm6 Triage Assessment: 18:27 General: Appears in no apparent distress. Behavior is cooperative. Pain: Denies pain. tm6 EENT: No signs and/or symptoms were reported regarding the EENT system. Neuro: Level of Consciousness is awake, alert, obeys commands, Oriented to person, Seizure activity reported prior to arrival. Cardiovascular: Patient's skin is warm and dry. Respiratory: Airway is patent Respiratory effort is even, unlabored, Respiratory pattern is regular, symmetrical. GI: No signs and/or symptoms were reported involving the gastrointestinal system. Abdomen is flat, non-distended. : No signs and/or symptoms were reported regarding the genitourinary system. Derm: No signs and/or symptoms reported regarding the dermatologic system. Musculoskeletal: No signs and/or symptoms reported regarding the musculoskeletal system. Historical: - Allergies: 18:21 Aspirin; tm6 18:21 Bactrim; tm6 18:21 Sulfa (Sulfonamide Antibiotics); tm6 18:21 Vancomycin; tm6 - PMHx: 18:21 diabetes mellitus; Hypertensive disorder; kidney disease; MWF Dialysis (kidney tm6 disease); Seizure; - PSHx: 18:21 right foot; tm6 - Immunization history:: Flu vaccine status is unknown. - Infectious Disease History:: Denies. - Social history:: Smoking status: unknown. Screenin:28 [facility] ED Fall Risk Assessment (Adult) History of falling in the last 3 months, tm6 including since admission Yes- physiologic fall (2 pts) Confusion or Disorientation Yes (5 pts) Intoxicated or Sedated No (0 pts) Impaired Gait No (0 pts) Mobility Assist Device Used No (0 pt) Altered Elimination No (0 pt) Score/Fall Risk Level 3 or more points = High Risk Oriented to surroundings, Maintained a safe environment, Educated pt \T\ family on fall prevention, incl call for assistance when getting out of bed. Abuse screen: Denies threats or abuse. Denies injuries from another. Nutritional screening: No deficits noted. Tuberculosis screening: No symptoms or risk factors identified. Assessment: 18:28 Reassessment: see triage assessment. tm6 19:30 General: Appears in no apparent distress. Behavior is drowsy. Pain: Denies pain. Neuro: al5 Level of Consciousness is obeys commands, lethargic, Oriented to person, place, time, situation. Neuro: Reports can feel blood sugar is dropping. Seizure activity patient has had no seizure activity since arriving to the facility. 19:30 Cardiovascular: Capillary refill < 3 seconds Patient's skin is warm and dry. al5 Respiratory: Airway is patent Respiratory effort is even, unlabored, Respiratory pattern is regular, symmetrical. GI: No signs and/or symptoms were reported involving the gastrointestinal system. : No signs and/or symptoms were reported regarding the genitourinary system. EENT: No signs and/or symptoms were reported regarding the EENT system. Derm: Skin is intact, Skin is pink, warm \T\ dry. normal. Musculoskeletal: No signs and/or symptoms reported regarding the musculoskeletal system. 19:39 Reassessment: patient bgl 33. provider notified. patient awake and alert able to obey al5 commands. patient given 3 orange juice and a turkey sandwich. 20:22 Reassessment: Patient appears in no apparent distress at this time. Patient and/or al5 family updated on plan of care and expected duration. Pain level reassessed. Patient is alert, oriented x 3, equal unlabored respirations, skin warm/dry/pink. patient awake alert, feels better than earlier post turkey sandwich and orange juice. blood sugar re-checked, bgl 130. provider notified and aware. states to re-check his blood sugar again in one hour to make sure it does not decrease. 21:29 Reassessment: Patient appears in no apparent distress at this time. No changes from al5 previously documented assessment. Patient and/or family updated on plan of care and expected duration. Pain level reassessed. Patient is alert, oriented x 3, equal unlabored respirations, skin warm/dry/pink. BGL 113. charge nurse notified and aware. patient states he feels better and feels ready to go home. Vital Signs: 18:19 BP 159 / 98; Pulse 70; Resp 16; Temp 97.5(O); Pulse Ox 100% on R/A; MAP 117 mmHg; tm6 Weight 79.5 kg; Pain 0/10; 19:25 BP 175 / 111; Pulse 75; Resp 18; Pulse Ox 100% on R/A; bm8 19:30 BP 166 / 104; Pulse 70; Resp 16; Pulse Ox 100% on R/A; bm8 20:00 BP 153 / 95; Pulse 68; Resp 16; Pulse Ox 100% on R/A; bm8 20:30 BP 141 / 83; Pulse 68; Resp 17; Pulse Ox 100% on R/A; bm8 21:00 BP 136 / 81; Pulse 66; Resp 16; Pulse Ox 100% on R/A; bm8 21:30 BP 129 / 81; Pulse 68; Resp 15; Pulse Ox 99% on R/A; bm8 18:19 Pain Scale: Adult tm6 [place] Coma Score: 18:27 Eye Response: spontaneous(4). Motor Response: obeys commands(6). Verbal Response: tm6 oriented(5). Total: 15. ED Course: 18:11 Patient arrived in ED. sp3 18:11 Eliel Garcia MD is Attending Physician. sp3 18:18 Fabrice, Tawney, RN is Primary Nurse. tm6 18:21 Triage completed. tm6 18:24 Initial lab(s) drawn, by me, sent to lab. Inserted saline lock: 20 gauge in right hb forearm, using aseptic technique. ,using aseptic technique. US GUIDED Blood collected. Flushed with 10 mL NS. 18:27 Arm band placed on right wrist. tm6 18:28 Patient has correct armband on for positive identification. Bed in low position. Call tm6 light in reach. Side rails up X2. Seizure precautions initiated. Provided Education on: use of call aguayo; plan of care. Client placed on continuous cardiac and pulse oximetry monitoring. NIBP monitoring applied. cardiac monitor on. Pulse ox on. NIBP on. Door closed. Noise minimized. Warm blanket given. Pillow given. 18:36 Basic Metabolic Panel Sent. hb 18:36 CBC with Diff Sent. hb 18:36 Hepatic Function Sent. hb 18:36 Magnesium Sent. hb 18:36 Protime (+inr) Sent. hb 18:36 Ptt, Activated Sent. hb 18:36 Troponin High Sensitivity Sent. hb 18:38 Chest Single View XRAY In Process Unspecified. EDMS 18:50 CT Head Brain wo Cont In Process Unspecified. EDMS 19:01 Kristi Castellano, RN is Primary Nurse. al5 19:01 No provider procedures requiring assistance completed. al5 19:30 Thompson Jeffers MD is Referral Physician. sp3 20:17 Attending Physician role handed off by Eliel Garcia MD sp4 20:17 Zhou Isbell MD is Attending Physician. sp4 20:37 EKG done, by ED staff. vk 21:12 Blood glucose level 113. vk 21:33 Thompson Jeffers MD is Referral Physician. sp4 21:42 IV discontinued, intact, bleeding controlled, No redness/swelling at site. Pressure bm8 dressing applied. Administered Medications: 19:46 Drug: Keppra IV 500 mg IV at calculated rate once Route: IV; Rate: calculated rate; al5 Site: right forearm; 20:15 Follow up: Response: No adverse reaction; IV Status: Completed infusion; IV Intake: al5 100ml Medication: 18:28 VIS not applicable for this client. tm6 Point of Care Testing: Blood Glucose: 18:27 Blood Glucose: 91 mg/dL; tm6 Ranges: Intake: 20:15 IV: 100ml; Total: 100ml. al5 Outcome: 19:30 Discharge ordered by . sp3 21:34 Discharge ordered by . sp4 21:42 Discharged to home ambulatory, with family, bm8 21:42 Condition: good 21:42 Discharge instructions given to patient, family, Instructed on discharge instructions, follow up and referral plans. medication usage, Demonstrated understanding of instructions, follow-up care, medications, Prescriptions given X 1, 21:43 Patient left the ED. bm8 Signatures: Dispatcher [employer] EDMS Rehana Aguilar, RN RN Eliel Garcia MD MD sp3 Zhou Isbell MD MD sp4 Sharon Avina RN RN tm6 Kathryn Roque Brad RN RN bm8 Kristi Castellano RN RN al5
[2024-08-25] MEDS ORDERED: NA CHLORIDE 0.9% 100 ML ONE (19:41)
[2024-08-25] MEDS ORDERED: LEVETIRACETAM 500 MG/5 ML VIAL IV ONE (19:41)
[2024-08-26 00:51] VITALS: TEMP 97.5
[2024-08-26 01:02] VITALS: BP 129/81; O2SAT 99
--- OUTSIDE RECORDS SUMMARY | 2024-08-28 08:19 | XMS REPORT | Continuity of Care Document ---
Author Name Unknown Address [address] [place] [address] Address [address] [facility] [place] [address] Care Team Providers Care Service Manager Name Role Phone Unavailable Unavailable Unavailable Encounters Start Date/Time End Date/Time Encounter Type Admission Type Attending Clinicians Care Facility Care Department Encounter ID Source 2024-08-08 10:32:49 2024-08-08 10:32:49 Outpatient [facility] [id number] Dennis Schmidt 2024-08-04 10:40:55 2024-08-04 10:40:55 Outpatient [facility] [id number] Dennis Schmidt
== END 2024-08-25 21:43 | disposition home or self-care (01) ==
LOC: ER 18:06
DX: G40.89 Other seizures (principal); E11.22 Type 2 diabetes mellitus with diabetic chronic kidney disease; I12.0 Hypertensive chronic kidney disease with stage 5 chronic kidney disease or end stage renal disease; N18.6 End stage renal disease; Z99.2 Dependence on renal dialysis
CPT/HCPCS: 96365; 85025; 80048; 36415; 83735; 85610; 82947 ×4; 80076; 85730; 84484; 70450; 71045; 99285; J1953

== ENCOUNTER 2024-09-04 20:24 | Inpatient (IN) | payer OTHER ==
--- OUTSIDE RECORDS SUMMARY | 2024-09-04 20:28 | XMS REPORT | Continuity of Care Document ---
Author Name Unknown Address [address] [facility] [address] [place] [address] [facility] thconnect Address [address] [facility] [address] [place] [address] Care Team Providers Care Solid Waste Landfill Technician Name Role Phone Unavailable Unavailable Unavailable Encounters Start Date/Time End Date/Time Encounter Type Admission Type Attending Clinicians [facility] Facility Care Department Encounter ID Source 2024-08-08 10:32:49 2024-08-08 10:32:49 Outpatient [facility] [id number] Dennis Schmidt 2024-08-04 10:40:55 2024-08-04 10:40:55 Outpatient [facility] [id number] Dennis Schmidt
[2024-09-04] MEDS ORDERED: CEFTRIAXONE 1000 MG/VIAL ONE (21:17)
[2024-09-04] MEDS ORDERED: ONDANSETRON 4 MG/2 ML VIAL ONE (21:18)
[2024-09-04] MEDS ORDERED: MORPHINE 4 MG/ML SYR ONE (21:18)
[2024-09-04] MEDS ORDERED: VANCOMYCIN 1 GM/VIAL ONE (21:18)
[2024-09-04] MEDS ORDERED: ACETAMINOPHEN 500 MG TAB ONE (21:18)
[2024-09-04] MEDS ORDERED: NA CHLORIDE 0.9% 0 ML ONE ×2 (21:19→21:20)
[2024-09-04] MEDS ORDERED: NA CHLORIDE 0.9% 50 ML ONE (21:19)
[2024-09-04 21:42] LABS: Absolute Basophils 0.1 K/uL (0-0.5); Absolute Lymphocytes (CBC) 0.6 K/uL (0.7-4.9); Absolute Monocytes 0.9 K/uL (0.1-1.3); Absolute Neutrophil 14.7 K/uL (1.8-8.0); Basophils % 0.8 % (0-1.3); Eosinophils % 0.2 % (0-4.4); Hematocrit 31.2 % (39.6-49.0); Hemoglobin 9.9 g/dL (13.6-17.9); Lymphocytes % 3.7 % (15.3-44.8); MCHC 31.6 g/dL (32.0-36.0); MCV 85.4 fL (80-100); MPV 8.1 fL (7.6-11.3); Monocytes % 5.7 % (3.3-12.3); Neutrophils % 89.6 % (41.7-73.7); Nucleated Red Blood Cells % 0.1 % (0-0); Platelets 265 thou/uL (152-406); RBC Red Blood Cell Count 3.65 M/uL (4.33-5.43); Red Cell Distribution Width 16.4 % (12.1-15.2)
[2024-09-04 21:51] LABS: PT Prothrombin Time 13.3 SECONDS (9.4-12.5); Protime INR 1.19
[2024-09-04 22:13] LABS: Arterial Blood Carboxyhemoglob 1.1 % (0-1.5); Blood O2 Saturation 97.2 % (92-98.5)
[2024-09-04 22:14] LABS: Blood Gas THB 10.2 g/dl (12-18)
[2024-09-04 22:27] LABS: Albumin/Globulin Ratio 0.6 (1.1-1.8); Anion Gap 17.8 mEq/L (5.0-15.0); Bilirubin Direct 0.2 mg/dL (0-0.2); Bilirubin Indirect, Calculated 0.3 mg/dL (0.2-0.8); Bilirubin Total 0.5 mg/dL (0.2-1.0); Globulin 5.4 g/dL (2.3-3.5); Magnesium 1.9 mg/dL (1.6-2.4); Potassium 5.8 mEq/L (3.5-5.1); Protein, Total 8.4 g/dL (6.4-8.2)
[2024-09-04 22:29] LABS: SARS-CoV-2 Antigen CONTROL BLUE LINE VIS/BG OK; SARS-CoV-2 Antigen Rapid Res Negative (Negative)
[2024-09-04 22:30] LABS: Troponin High Sensitivity 76.3 pg/mL (<58.9)
--- NOTE | 2024-09-04 22:48 | RAD REPORT ---
EXAMINATION: ONE VIEW CHEST XR CLINICAL INDICATION: Male, 34 years old.,CHEST PAIN TECHNIQUE: Frontal chest projection is submitted. Examination is limited by patient positioning and t echnique. COMPARISON: 08/25/2024 FINDINGS: Interval development of fluffy central predominant airspace opacities more pronounced on the right. S uspected small right effusion. Right IJ dialysis catheter unchanged in position No pneumothorax or sizable left effusion. The heart is normal in size. Mediastinal contours are unremarkable. IMPRESSION: Findings suggestive of pulmonary edema or ARDS.
[2024-09-05] MEDS ORDERED: SOD POLYSTYREN SUL 15 GM/60 ML UCUP ONE (00:15)
[2024-09-05] MEDS ORDERED: METRONIDAZOLE 500mg IVPB 500 MG/100 ML BAG IV ONE (00:15)
[2024-09-05] MEDS ORDERED: SODIUM BICARB 50 MEQ/50ML VIAL ONE (00:15)
--- NOTE | 2024-09-05 00:17 | ER ---
Nurse's Notes [facility] Name: Tan Marlow Age: 34 yrs Sex: Male : 1990 Arrival Date: 09/04/2024 Time: 20:24 Bed 4 Private MD: Diagnosis: Acute pulmonary edema;Acute hyperkalemia, noncompliance with dialysis, pulmonary edema, hyperglycemia, bloody sputum, acute hypoxemic respiratory failure, end-stage renal disease dialysis dependent Presentation: 09/04 21:05 Chief complaint: Patient states: chest pain and shortness of breath onset 3 days ago. cm10 pt also reports that the shortness of breath is worse when laying down. pt's o2 sat 64% on RA. pt moved to a room and placed on non-rebreather. last dialysis on Saturday 09/01. Coronavirus screen: Client denies travel out of the [place] in the last 14 days. Ebola Screen: Patient denies travel to an Ebola-affected area in the 21 days before illness onset. Initial Sepsis Screen: Does the patient meet any 2 criteria? RR > 20 per min. HR > 90 bpm. Does the patient have a suspected source of infection? No. Patient's initial sepsis screen is negative. Risk Assessment: Do you want to hurt yourself or someone else? Patient reports no desire to harm self or others. Onset of symptoms was September 04, 2024. 21:05 Acuity: LULY 2 cm10 21:05 Method Of Arrival: Wheelchair cm10 Triage Assessment: 09/05 02:48 Respiratory: Onset: The symptoms/episode began/occurred. br2 Historical: - Allergies: 09/04 21:07 Aspirin; cm10 21:07 Bactrim; cm10 21:07 Sulfa (Sulfonamide Antibiotics); cm10 21:07 Vancomycin; cm10 - PMHx: 21:07 diabetes mellitus; Hypertensive disorder; kidney disease; MWF Dialysis (kidney cm10 disease); Seizure; - PSHx: 21:07 right foot; cm10 - Immunization history:: Adult Immunizations up to date. - Infectious Disease History:: Denies. - Social history:: Smoking status: unknown. - Family history:: not pertinent. Screenin:15 [facility] ED Fall Risk Assessment (Adult) History of falling in the last 3 months, br2 including since admission No falls in past 3 months (0 pts) Confusion or Disorientation No (0 pts) Intoxicated or Sedated No (0 pts) Impaired Gait No (0 pts) Mobility Assist Device Used No (0 pt) Altered Elimination No (0 pt) Score/Fall Risk Level 0 - 2 = Low Risk Oriented to surroundings. Abuse screen: Denies threats or abuse. Denies injuries from another. Nutritional screening: No deficits noted. Tuberculosis screening: No symptoms or risk factors identified. Assessment: 21:15 General: Appears distressed, uncomfortable, Behavior is anxious. Pain: Denies pain. br2 Neuro: [place]ston Agitation-Sedation Scale (RASS): +2 Agitated Level of Consciousness is awake, alert, obeys commands, Oriented to person, place, time, situation. Cardiovascular: Capillary refill < 3 seconds. Respiratory: Airway is compromised Respiratory effort is labored, with retractions, Respiratory pattern is hyperventilation Breath sounds with crackles bilaterally. the patient has severe shortness of breath. GI: Reports nausea, vomiting. : No signs and/or symptoms were reported regarding the genitourinary system. EENT: Derm: No signs and/or symptoms reported regarding the dermatologic system. Musculoskeletal: No signs and/or symptoms reported regarding the musculoskeletal system. 21:15 Cardiovascular: Rhythm is sinus tachycardia. br2 21:30 Reassessment: Patient and/or family updated on plan of care and expected duration. Pain br2 level reassessed. Patient is alert, oriented x 3, equal unlabored respirations, skin warm/dry/pink. 22:36 Reassessment: Patient and/or family updated on plan of care and expected duration. Pain br2 level reassessed. Patient is alert, oriented x 3, equal unlabored respirations, skin warm/dry/pink. Patient states feeling better. Patient states symptoms have improved. 23:51 Reassessment: No changes from previously documented assessment. Patient and/or family br2 updated on plan of care and expected duration. Pain level reassessed. Patient is alert, oriented x 3, equal unlabored respirations, skin warm/dry/pink. PT RESTING WITH NO DISTRESS. 09/05 01:00 General: Appears. br2 01:00 Reassessment: C/O MID STERNAL CP 02/27. br2 Vital Signs: 09/04 21:05 BP 180 / 89; Pulse 98; Resp 28; Temp 100.4(O); Pulse Ox 63% on R/A; Weight 75.3 kg; cm10 Height 5 ft. 6 in. ; Pain 7/10; 22:37 BP 195 / 103; Pulse 84; Resp 22; Pulse Ox 98% on CPAP; Pain 0/10; br2 23:00 BP 176 / 100; Pulse 79; Resp 20; Pulse Ox 96% on bipap; vk 23:30 BP 173 / 95; Pulse 75; Resp 22; Pulse Ox 99% on bi pap; vk 09/05 00:00 BP 168 / 95; Pulse 74; Resp 20; Pulse Ox 99% on bi pap; vk 00:58 BP 192 / 99; Pulse 78; Resp 18; Pulse Ox 100% on BIPAP; Pain 6/10; br2 09/04 21:05 Body Mass Index 26.79 (75.30 kg, 167.64 cm) cm10 09/04 21:05 Pain Scale: Adult cm10 22:37 Pain Scale: Adult br2 00:58 Pain Scale: Adult br2 [place] Coma Score: 00:17 Eye Response: spontaneous(4). Motor Response: obeys commands(6). Verbal Response: sp4 oriented(5). Total: 15. ED Course: 09/04 20:27 Patient arrived in ED. gm2 21:06 Zhou Isbell MD is Attending Physician. sp4 21:07 Triage completed. cm10 21:08 Arm band placed on right wrist. Patient placed in an exam room, on a stretcher, on cm10 oxygen, on cardiac tech, on pulse oximetry. 21:13 Radha Kumar RN is Primary Nurse. br2 21:15 Patient has correct armband on for positive identification. Bed in low position. Call br2 light in reach. Side rails up X 1. Provided Education on: PLAN OF CARE. 21:15 desk monitor on. Pulse ox on. br2 21:15 O2 via BIPAP APPLIED TO PT PER RT. br2 21:18 Initial lab(s) drawn, by me, sent to lab. First set of blood cultures drawn by me. bm8 Inserted saline lock: 20 gauge in right forearm, using aseptic technique. Flushed with 10 mL NS. 21:20 No provider procedures requiring assistance completed. bm8 21:20 Inserted saline lock: 18 gauge in right antecubital area, using aseptic technique. bm8 Blood collected. Flushed with 10 mL NS. 21:45 XRAY Chest (1 view) In Process Unspecified. EDMS 22:54 EKG done, by ED staff. vk 23:58 BIPAP Sent. br2 09/05 00:15 Ozzy Silver MD is Hospitalizing Provider. sp4 01:10 Patient admitted, IV remains in place. br2 02:44 Report given to report given to KASEY Iniguez. br2 Administered Medications: 09/04 21:56 Drug: morphine IVP or IV 4 mg IVP once over 4 mins Route: IVP; Infused Over: 4 mins; br2 Site: right forearm; 22:30 Follow up: Response: No adverse reaction; Pain is decreased br2 21:56 Drug: Acetaminophen PO 1000 mg PO once Route: PO; br2 22:30 Follow up: Response: No adverse reaction br2 21:56 Drug: Ondansetron IVP 4 mg IVP once; over 2 minutes Route: IVP; Site: right forearm; br2 22:30 Follow up: Response: No adverse reaction br2 21:57 Not Given (pt allergicc): vancomycin1 grams IVPB once over 2 hrs br2 21:58 Drug: Rocephin - Rocephin (cefTRIAXone) IVPB 1 grams IVPB once over 30 mins; (mix in 50 br2 mL NS) Route: IVPB; Infused Over: 30 mins; Site: right forearm; 22:30 Follow up: Response: No adverse reaction; IV Status: Completed infusion; IV Intake: br2 100ml 09/05 00:34 Drug: metroNIDAZOLE IVPB 500 mg 100 ml IVPB at 200 ml/hr once over 30 mins Volume: 100 br2 ml; Route: IVPB; Rate: 200 ml/hr; Infused Over: 30 mins; Site: right antecubital; 01:00 Follow up: Response: No adverse reaction; IV Status: Completed infusion; IV Intake: br2 100ml 00:34 Drug: Sodium Bicarbonate IVP 1 amp IVP once; (50 mL); equals 50 mEq Route: IVP; Site: br2 right antecubital; 01:00 Follow up: Response: No adverse reaction br2 00:35 Drug: Kayexalate PO 30 grams PO once Route: PO; br2 01:00 Follow up: Response: No adverse reaction br2 00:57 Drug: Insulin Regular Human IVP 5 units IVP once {Co-Signature: rhonda (Isha Yousif RN).} br2 Route: IVP; Site: right antecubital; 01:10 Follow up: Response: Medication Administered at Departure br2 00:57 Drug: Nitroglycerin Transdermal Ointment 2 % 1 inches Transdermal once Route: br2 Transdermal; Site: anterior chest wall; 00:57 Drug: morphine IVP or IV 2 mg IVP once over 4 mins Route: IVP; Infused Over: 4 mins; br2 Site: right antecubital; 01:10 Follow up: Response: Medication Administered at Departure br2 00:58 Drug: Pantoprazole IVP 40 mg IVP once Route: IVP; Site: right antecubital; br2 01:10 Follow up: Response: Medication Administered at Departure br2 00:58 Drug: metoCLOPramide IVP 10 mg IVP once; over 1 to 2 minutes Route: IVP; Site: right br2 antecubital; 01:10 Follow up: Response: Medication Administered at Departure br2 Medication: 01:10 VIS not applicable for this client. br2 Intake: 09/04 22:30 IV: 100ml; Total: 100ml. br2 09/05 01:00 IV: 100ml; Total: 200ml. br2 Outcome: 00:17 Decision to Hospitalize by Provider. sp4 01:10 Admitted to ICU accompanied by nurse, via stretcher, room 4, with oxygen, Report called br2 to Geetha 01:10 Condition: improved 01:10 Instructed on the need for admit, Demonstrated understanding of instructions, 01:10 Patient left the ED. br2 Signatures: Dispatcher [employer] EDMS Zhou Isbell MD MD sp4 Sudha Grace RN RN cm10 Sneha Rivera 2 Kathryn Roque Brad, RN RN bm8 Radha Kumar RN RN br2 Isha Yousif RN Corrections: (The following items were deleted from the chart) 09/04 21:08 21:05 Chief complaint: Patient states: chest pain and shortness of breath onset 3 days cm10 ago. pt also reports that the shortness of breath is worse when laying down. pt's o2 sat 64% on RA. pt moved to a room and placed on non-rebreather. cm10 :34 21:20 Initial lab(s) drawn, by , sent to lab. First set of blood cultures drawn by niall mei : 21:20 Inserted saline lock: 20 gauge in right forearm, using aseptic technique. Flushed bm8 with 10 mL NS bm8 09/05 01:13 12 21:20 Inserted saline lock: 18 gauge in left antecubital area, using aseptic bm8 technique. Blood collected. Flushed with 10 mL NS bm8 09/05 02:48 01:31 Patient left the ED. br2 br2
--- NOTE | 2024-09-05 00:17 | EDPHYS ---
Physician Documentation [facility] Name: Tan Marlow Age: 34 yrs Sex: Male : 1990 Arrival Date: 09/04/2024 Time: 20:24 Bed 4 Private MD: ED Physician Zhou Isbell HPI: 09/05 00:03 This 34 yrs old Black Male presents to ER via Wheelchair with complaints of Shortness sp4 Of Breath, VOMITING BLOOD. 00:17 34-year-old male with end-stage renal disease on hemodialysis presents with acute sp4 shortness of breath and fever. Patient states he was feeling unwell this Wednesday and he has missed his hemodialysis. Last hemodialysis was on Wednesday09/01/2024. Patient states today he felt worsening fever fatigue shortness of breath patient arrived here and was desaturating into 60s. . Patient also reports he was spitting up some blood. Recent admission 07/18/2024 through 07/22/2024 for diabetic right foot wound with osteomyelitis, hyperglycemia, end-stage renal disease, proteinuria and hypertension. Patient's medications include atorvastatin before bedtime, Wellbutrin 150 daily, aspart subcu FlexPen, metoprolol daily, nifedipine 60 mg twice daily, clonidine 0.1 mg 3 times daily, ferrous sulfate 325 daily, losartan potassium 50 mg twice daily, quetiapine or Seroquel 50 mg p.o. bedtime, calcium acetate 3 times daily, hydralazine 100 3 times daily, insulin glargine 10 units subcu twice daily, docusate 100 mg p.o. twice daily, hydrocodone 5 every 6 hours as needed. . Historical: - Allergies: 09/04 21:07 Aspirin; cm10 21:07 Bactrim; cm10 21:07 Sulfa (Sulfonamide Antibiotics); cm10 21:07 Vancomycin; cm10 - PMHx: 21:07 diabetes mellitus; Hypertensive disorder; kidney disease; MWF Dialysis (kidney cm10 disease); Seizure; - PSHx: 21:07 right foot; cm10 - Immunization history:: Adult Immunizations up to date. - Infectious Disease History:: Denies. - Social history:: Smoking status: unknown. - Family history:: not pertinent. ROS: 09/05 00:17 Constitutional: Negative for fever, chills, and weight loss, positive for fever, sp4 chest pain, shortness of breath, positive for spitting up blood. All other systems are negative, Exam: 00:17 Constitutional: This is a well developed, well nourished patient who is awake, sp4 ill-appearing male, pale on arrival, hypoxemic, hypertensive, ill-appearing and toxic appearing. Head/Face: Normocephalic, atraumatic. Eyes: Pupils equal round and reactive to light, extra-ocular motions intact. Lids and lashes normal. Conjunctiva and sclera are not injected. Cornea within normal limits. Periorbital areas with no swelling, redness, or edema. ENT: Nares patent. No nasal discharge, no septal abnormalities noted. Tympanic membranes are normal and external auditory canals are clear. Oropharynx with no redness, swelling, or masses, exudates, or evidence of obstruction, uvula midline. Mucous membranes moist. Neck: Trachea midline, no thyromegaly or masses palpated, and no cervical lymphadenopathy. Supple, full range of motion without nuchal rigidity, or vertebral point tenderness. Chest/axilla: Normal chest wall appearance and motion. Nontender with no deformity. No lesions are appreciated. There is a right-sided chest wall tunneled hemodialysis catheter. Cardiovascular: Regular rate and rhythm with a normal S1 and S2. No gallops, murmurs, or rubs. Normal PMI, no JVD. No pulse deficits. Respiratory: Lungs have equal breath sounds bilaterally, clear to auscultation and percussion. No rales, rhonchi or wheezes noted. No increased work of breathing, no retractions or nasal flaring. Abdomen/GI: Soft, with normal bowel sounds. No distension or tympany. No guarding or rebound. No evidence of tenderness throughout. Back: No spinal tenderness. No costovertebral tenderness. Skin: Warm, dry with normal turgor. Normal color with no rashes, no lesions, and no evidence of cellulitis. MS/ Extremity: Pulses equal, no cyanosis. Neurovascular intact. Full, normal range of motion. There is bilateral lower extremity edema, right foot diabetic wound. Appears chronic Neuro: Awake and alert, GCS 15, oriented to person, place, time, and situation. Cranial nerves II-XII grossly intact. Motor strength 5/5 in all extremities. Sensory grossly intact. Psych: Awake, alert, with orientation to person, place and time. Behavior, mood, and affect are within normal limits 00:17 ECG was reviewed by the Attending Physician. EKG at 2230, sinus rhythm rate 86, left axis deviation, hyperacute T waves consistent with acute hyperkalemia, prolonged QT. Vital Signs: 09/04 21:05 BP 180 / 89; Pulse 98; Resp 28; Temp 100.4(O); Pulse Ox 63% on R/A; Weight 75.3 kg; cm10 Height 5 ft. 6 in. ; Pain 7/10; 22:37 BP 195 / 103; Pulse 84; Resp 22; Pulse Ox 98% on CPAP; Pain 0/10; br2 23:00 BP 176 / 100; Pulse 79; Resp 20; Pulse Ox 96% on bipap; vk 23:30 BP 173 / 95; Pulse 75; Resp 22; Pulse Ox 99% on bi pap; vk 09/05 00:00 BP 168 / 95; Pulse 74; Resp 20; Pulse Ox 99% on bi pap; vk 00:58 BP 192 / 99; Pulse 78; Resp 18; Pulse Ox 100% on BIPAP; Pain 6/10; br2 09/04 21:05 Body Mass Index 26.79 (75.30 kg, 167.64 cm) cm10 09/04 21:05 Pain Scale: Adult cm10 22:37 Pain Scale: Adult br2 00:58 Pain Scale: Adult br2 Nikko Coma Score: 00:17 Eye Response: spontaneous(4). Motor Response: obeys commands(6). Verbal Response: sp4 oriented(5). Total: 15. MDM: 09/04 21:08 Medical Screening Exam initiated sp4 09/05 00:24 ED course: EXAMINATION: ONE VIEW CHEST XR CLINICAL INDICATION: Male, 34 years sp4 old.,CHEST PAIN TECHNIQUE: Frontal chest projection is submitted. Examination is limited by patient positioning and technique. COMPARISON: 08/25/2024 FINDINGS: Interval development of fluffy central predominant airspace opacities more pronounced on the right. Suspected small right effusion. Right IJ dialysis catheter unchanged in position No pneumothorax or sizable left effusion. The heart is normal in size. Mediastinal contours are unremarkable. IMPRESSION: Findings suggestive of pulmonary edema or ARDS. . 00:25 Differential diagnosis: Anemia Anxiety Reaction asthma, Bronchitis Myocardial sp4 Infarction pneumonia, pulmonary edema, reactive airway disease, Sepsis. Data reviewed: vital signs, nurses notes, old medical records, lab test result(s), EKG, radiologic studies, plain films. 09/04 21:06 Order name: Basic Metabolic Panel; Complete Time: 00:01 [facility] 09/04 21:06 Order name: CBC with Diff; Complete Time: 00:01 [facility] 09/04 21:06 Order name: LFT's; Complete Time: 00:01 [facility] 09/04 21:06 Order name: Magnesium; Complete Time: 00:01 [facility] 09/04 21:06 Order name: NT PRO-BNP; Complete Time: 00:01 [facility] 09/04 21:06 Order name: PT-INR; Complete Time: 00:01 [facility] 09/04 21:06 Order name: Troponin HS; Complete Time: 00:01 [facility] 09/04 21:07 Order name: SARS RAPID; Complete Time: 00:01 [facility] 09/04 21:07 Order name: Influenza Screen (a \T\ B); Complete Time: 00:01 [facility] 09/04 21:07 Order name: ABG; Complete Time: 00:01 [facility] 09/04 21:07 Order name: Blood Culture Adult (2) [facility] 09/04 21:07 Order name: Lactate w/ 2H reflex if indic.; Complete Time: 00:01 [facility] 09/04 21:07 Order name: CRP; Complete Time: 00:01 [facility] 09/05 00:38 Order name: Urinalysis w/ reflexes [facility] 09/04 21:06 Order name: XRAY Chest (1 view); Complete Time: 00:01 [facility] 09/04 21:07 Order name: BIPAP [facility] 09/04 21:06 Order name: EKG; Complete Time: 21:07 [facility] 09/05 00:38 Order name: CONS Physician Consult [facility] 09/04 21:06 Order name: Cardiac monitoring; Complete Time: 21:53 [facility] 09/04 21:06 Order name: EKG - Nurse/Tech; Complete Time: 22:54 [facility] 09/04 21:06 Order name: IV Saline Lock; Complete Time: 21:53 [facility] 09/04 21:06 Order name: Labs collected and sent; Complete Time: 21:53 [facility] 09/04 21:06 Order name: O2 Per Protocol; Complete Time: 21:53 sp4 09/04 21:06 Order name: O2 Sat Monitoring; Complete Time: 21:53 sp4 EC: Rate is 86 beats/min. Rhythm is regular, Sinus Rhythm. Left axis deviation noted. RI sp4 interval is normal. QRS interval is normal. QT interval is prolonged. No Q waves. T waves are Peaked in leads III, V2, V3, V4. No ST changes noted. Clinical impression: No evidence of ischemia. Interpreted by me. Reviewed by me. Administered Medications: 09/04 21:56 Drug: morphine IVP or IV 4 mg IVP once over 4 mins Route: IVP; Infused Over: 4 mins; br2 Site: right forearm; 22:30 Follow up: Response: No adverse reaction; Pain is decreased br2 21:56 Drug: Acetaminophen PO 1000 mg PO once Route: PO; br2 22:30 Follow up: Response: No adverse reaction br2 21:56 Drug: Ondansetron IVP 4 mg IVP once; over 2 minutes Route: IVP; Site: right forearm; br2 22:30 Follow up: Response: No adverse reaction br2 21:57 Not Given (pt allergicc): vancomycin1 grams IVPB once over 2 hrs br2 21:58 Drug: Rocephin - Rocephin (cefTRIAXone) IVPB 1 grams IVPB once over 30 mins; (mix in 50 br2 mL NS) Route: IVPB; Infused Over: 30 mins; Site: right forearm; 22:30 Follow up: Response: No adverse reaction; IV Status: Completed infusion; IV Intake: br2 100ml 09/05 00:34 Drug: metroNIDAZOLE IVPB 500 mg 100 ml IVPB at 200 ml/hr once over 30 mins Volume: 100 br2 ml; Route: IVPB; Rate: 200 ml/hr; Infused Over: 30 mins; Site: right antecubital; 01:00 Follow up: Response: No adverse reaction; IV Status: Completed infusion; IV Intake: br2 100ml 00:34 Drug: Sodium Bicarbonate IVP 1 amp IVP once; (50 mL); equals 50 mEq Route: IVP; Site: br2 right antecubital; 01:00 Follow up: Response: No adverse reaction br2 00:35 Drug: Kayexalate PO 30 grams PO once Route: PO; br2 01:00 Follow up: Response: No adverse reaction br2 00:57 Drug: Insulin Regular Human IVP 5 units IVP once {Co-Signature: rhonda (Isha Yousif RN).} br2 Route: IVP; Site: right antecubital; 01:10 Follow up: Response: Medication Administered at Departure br2 00:57 Drug: Nitroglycerin Transdermal Ointment 2 % 1 inches Transdermal once Route: br2 Transdermal; Site: anterior chest wall; 00:57 Drug: morphine IVP or IV 2 mg IVP once over 4 mins Route: IVP; Infused Over: 4 mins; br2 Site: right antecubital; 01:10 Follow up: Response: Medication Administered at Departure br2 00:58 Drug: Pantoprazole IVP 40 mg IVP once Route: IVP; Site: right antecubital; br2 01:10 Follow up: Response: Medication Administered at Departure br2 00:58 Drug: metoCLOPramide IVP 10 mg IVP once; over 1 to 2 minutes Route: IVP; Site: right br2 antecubital; 01:10 Follow up: Response: Medication Administered at Departure br2 Disposition Summary: 09/05/24 00:17 Hospitalization Ordered Notes: Hospitalization Status: Inpatient Admission sp4 Provider: Ozzy Silver Location: Intensive Care Unit sp4 Condition: Serious sp4 Problem: new sp4 Symptoms: have improved sp4 Bed/Room Type: Standard sp4 Room Assignment: 6-(09/05/24 00:50) kl Diagnosis - Acute pulmonary edema sp4 - Acute hyperkalemia, noncompliance with dialysis, pulmonary edema, hyperglycemia, sp4 bloody sputum, acute hypoxemic respiratory failure, end-stage renal disease dialysis dependent Forms: - Medication Reconciliation Form sp4 - SBAR form sp4 - Leadership Thank You Letter sp4 Signatures: Dispatcher [employer] Anne Peña RN RN Genevieve Finn rvZhou Vasquez MD MD sp4 Sudha Grace RN RN cm10 Radha Kumar RN RN br2 Isha Yousif RN Corrections: (The following items were deleted from the chart) 09/04 21:07 21:07 Arterial Blood Gas+RC.LAB.BRZ ordered. EDMS EDMS 09/05 00:48 00:17 sp4 rv1 00:49 00:48 3- rv1 rv1 00:50 00:49 rv1 kl
--- NOTE | 2024-09-05 00:30 | P.HP ---
Certification for Inpatient Patient admitted to: Inpatient With expected LOS: >2 Midnights Practitioner: I am a practitioner with admitting privileges, knowledge of patient current condition, hospital course, and medical plan of care. Services: Services provided to patient in accordance with Admission requirements found in Title 42 Section 412.3 of the Code of Federal Regulations Patient History Date of Service: 09/05/24 Reason for admission: SOB History of Present Illness: 34-year-old male with past medical history of ESRD on hemodialysis, diabetes, hypertension, seizure disorder, history of right foot osteomyelitis presents with acute shortness of breath and fever. Patient states he was feeling unwell this Wednesday and he has missed his hemodialysis. Last hemodialysis was on Wednesday09/01/2024. He was feeling tired and fatigued with subjective fever and started having shortness of breath which was progressively getting worse and was brought to ER. He was found to be hypoxic to 60s. He also complains of hemoptysis occasionally. He was assessed in the ER and was found to be fluid overloaded because of the missed dialysis and was admitted for further management. He was also found to be hyperkalemic and emergency dialysis was recommended Allergies aspirin Adverse Reaction (Verified 06/03/24 21:06) Hives/Rash Sulfa (Sulfonamide Antibiotics) Adverse Reaction (Verified 06/03/24 21:07) Hives/Rash sulfamethoxazole [From Bactrim] Adverse Reaction (Verified 06/03/24 21:07) Hives/Rash trimethoprim [From Bactrim] Adverse Reaction (Verified 06/03/24 21:07) Hives/Rash vancomycin Adverse Reaction (Verified 06/03/24 21:07) Hives/Rash Home medications list reviewed: Yes Home Medications: Atorvastatin Calcium 40 mg PO BEDTIME 06/03/24 Buproprion S.r. [Wellbutrin Sr*] 150 mg PO DAILY 06/03/24 Insulin Aspart [Novolog Flexpen] See Protocol SQ ACHS 06/03/24 Metoprolol Succinate 1 tab PO DAILY 06/03/24 NIFEdipine [Nifedipine ER] 60 mg PO BID 06/03/24 cloNIDine HCL [Clonidine HCl] 0.1 mg PO TID 06/03/24 Ferrous Sulfate 325 mg PO DAILY 30 Days #30 tab 06/10/24 Losartan Potassium [Cozaar*] 50 mg PO BID 30 Days #60 tab 06/10/24 Quetiapine Fumarate [Seroquel] 50 mg PO BEDTIME 30 Days #30 tab 06/10/24 Calcium Acetate 667 mg PO TID 07/18/24 Hydralazine [Apresoline*] 100 mg PO TID 07/18/24 Furosemide 40 mg PO DAILY 09/05/24 Furosemide [Lasix] 20 mg PO BEDTIME 09/05/24 Insulin Detemir [Levemir] 10 units SQ BID 09/05/24 Insulin Regular, Human [Humulin R U-500 Kwikpen] 10 unit SQ TID 09/05/24 - Past Medical/Surgical History Diabetic: Yes Past Medical History: Reviewed- Non-Contributory -: HTN -: DM I with CKD, Polyneuropathy & Retinopathy -: ESRD on HD (Dr. Oneal/ [facility]) -: Anemia Past Surgical History: Reviewed- Non-Contributory -: Incision right foot - Family History Family History: Reviewed- Non-Contributory - Family History Father -: Heart disease, Diabetes, Stroke, Kidney disease Notes: DM. CHF Mother -: Diabetes, Kidney disease Notes: Dementia showing early on set - Social History Smoking Status: Never smoker Alcohol use: No CD- Drugs: No Caffeine use: Yes Review of Systems 10-point ROS is otherwise unremarkable Physical Examination - Vital Signs Temperature: 97.6 F Blood Pressure: 168/78 Pulse: 96 Respirations: 18 Pulse Ox (%): 94 - Physical Exam General: Alert, Oriented x3, Mild distress HEENT: Atraumatic, Normocephalic Neck: Supple, No Thyromegaly Respiratory: Clear to auscultation bilaterally, Crackles/rales Cardiovascular: Regular rate/rhythm, Normal S1 S2 Capillary refill: <2 Seconds Gastrointestinal: Soft and benign, W/out hepatosplenomegaly Musculoskeletal: No clubbing Integumentary: No rashes Neurological: Normal speech, Normal strength at 5/5 x4 extr, Cranial nerves 3-12 intact Lymphatics: No axilla or inguinal lymphadenopathy - Studies Laboratory Data (last 24 hrs) 09/04/24 09/04/24 09/04/24 21:20 21:20 21:20 WBC 16.40 H Hgb 9.9 L Hct 31.2 L Plt Count 265 PT 13.3 H INR 1.19 Sodium 131 L Potassium 5.8 H BUN 76 H Creatinine 10.80 H Glucose 366 H Magnesium 1.9 Total Bilirubin 0.5 AST 24 ALT 61 Alkaline Phosphatase 169 H Microbiology Data (last 24 hrs): 09/04/24 21:20 Nasopharnyx Influenza Type A Antigen Screen - Final 09/04/24 21:20 Nasopharnyx Influenza Type B Antigen Screen - Final Assessment and Plan - Plan Fluid overload/pulmonary edema Possibly due to missed dialysis Aggressive diuresis Nephrology consulted Will try to get emergency dialysis Hyperkalemia Patient received Kayexalate and cocktail in ER Will add on Lokelma as needed Dialysis as recommended by nephrology NSTEMI possibly type II due to fluid overload Will trend cardiac enzymes Will monitor telemetry Started on aspirin and statin Patient denies any chest pain Cardiology consult if cardiac enzymes are trended higher Hypertension Antihypertensives titrated Continue home medications and titrate as needed Hyperlipidemia Continue statin Diabetes Insulin sliding scale Accu-Chek before every meal and at bedtime Anemia of chronic disease Monitor H&H closely No overt bleeding at this time No further episodes of hemoptysis Seizure disorder Continue home medications when list available GI/DVT prophylaxis Advanced directive full code Discharge Plan: Home Plan to discharge in: 48 Hours - Advance Directives Does patient have a Living Will: No Does patient have a Durable POA for Healthcare: No - Code Status/Comfort Care Code Status: Full Code Time Spent Managing Pts Care (In Minutes): 48
[2024-09-05] MEDS ORDERED: ALBUTEROL 2.5 MG/3 ML NEB SOL NEB PRN ×2 (00:32→17:15)
[2024-09-05] MEDS: SODIUM ZIRCONIUM CYCLOSILICATE 10 GM/PKT PO ONE (00:36)
[2024-09-05] MEDS ORDERED: D10W 125 ML IV PRN (00:37)
[2024-09-05] MEDS ORDERED: GLUCAGON 1 MG/VIAL IM PRN (00:37)
[2024-09-05] MEDS ORDERED: NITROGLYCERIN 1 GM PKT TD ONE (00:45)
[2024-09-05] MEDS ORDERED: METOCLOPRAMIDE 10 MG/2mL INJ ONE (00:45)
[2024-09-05] MEDS ORDERED: PANTOPRAZOLE 40 MG INJ ONE (00:45)
[2024-09-05] MEDS ORDERED: MORPHINE 2 MG/ML SYR ONE (00:45)
[2024-09-05] MEDS ORDERED: ACETAMINOPHEN 325 MG TABLET PO PRN (01:15)
[2024-09-05] MEDS: FUROSEMIDE 40 MG/4 ML VIAL IV SCH (02:50)
[2024-09-05] MEDS ORDERED: ONDANSETRON 4 MG/2 ML VIAL IV PRN (03:15)
[2024-09-05] MEDS: HYDRALAZINE HCL 20 MG/ML VIAL IV PRN (03:49)
[2024-09-05] MEDS: HYDROCODONE/APAP 5/325 MG TAB PO PRN (04:14)
[2024-09-05 05:15] LABS: Specific Gravity 1.015 (1.005-1.030); Sqamous Epithelial <5 /HPF (None Seen); Urine Bacteria None Seen /HPF (<20); Urine Bilirubin NEGATIVE (Negative); Urine Blood Trace (Negative); Urine Clarity Extremely Turbid (Clear); Urine Color Yellow (Yellow); Urine Culture Reflex Order NOT NEEDED; Urine Glucose 3+ (Negative); Urine Ketones NEGATIVE (Negative); Urine Microscopic Reflex YN ORDER UMIC; Urine Mucus Slight /HPF (None Seen); Urine Nitrite NEGATIVE (Negative); Urine Protein 3+ (Negative); Urine RBC <5 /HPF (None Seen); Urine Urobilinogen Normal (Normal); Urine pH 5.5 (5.0-7.0)
[2024-09-05] MEDS: MORPHINE 2 MG/ML SYR IV PRN (06:01)
--- NOTE | 2024-09-05 07:13 | P.PN ---
Date of Service: 09/05/24 Subjective: tolerating dialysis this morning without issues Missed dialysis due to feeling weak / run down reports severe coughing fits at home with some intermittent hemoptysis; significant other was sick with similar symptoms symptoms started prior to missing dialysis 100.4 low grade temp overnight refusing meds ROS: 10 point ROS as noted above, otherwise negative Physical Exam: GEN: Alert, NAD CV: Regular rate and rhythm, b/l pedal edema Pulm: on nasal cannula, shortness of breath at rest, bilateral crackles/rales worse on right ABD: soft, nontender, nondistended Neuro: Normal speech, normal affect Problem List: Fluid overload Hyperkalemia Pseudohyponatremia ESRD on HD MWF Hemoptysis, post-tussive NSTEMI Recent Right foot Osteomyelitis s/p I&D (07/19) ?Seizure disorder; recent diagnosis IDDM2 Hyppertension Hyperlipidemia Fluid overload Hyperkalemia Pseudohyponatremia ESRD on HD MWF on admission, presents with shortness of breath, subjective fevers, fatigue for 3 days. +Intermittent Hemopysis. Fluid overload possibly related to recently missed Dialysis. Last dialyzed Saturday 09/01. Reportedly hypoxic 64% on RA. Worsened with laying flat. Placed on non-rebreather and admitted to ICU. CXR (09/04): findings suggestive of pulm edema or ARDS. +suspected small right effusion. patient reports fluid usually favors right side when overloaded in the past Nephrology, Pulm consulted Dialysis per nephrology - dialysis today. Continue to monitor renal function. Monitor and replete electrolytes as needed. check ABG, Daily labs continue IV lasix 40 mg q8h PRN albuterol Pain control Hemoptysis , post-tussive per ER notes, reports intermittently spitting up blood pt describes this started after coughing fits -consistent with post-tussive hemoptysis No further episodes monitor H&H NSTEMI, likely demand ischemia no chest pain suspect demand ischemia in setting of ESRD/Hypertensive urgency trend troponin's, Monitor on telemetry continue metoprolol, statin Cardiology consulted - recommended outpatient stress test Recent Right foot Osteomyelitis s/p I&D (07/19) recently treated for osteomyeltis. Blood cultures previously grew E. coli and Strep 07/19/24 s/p 6 weeks of fortaz. (completed 09/01/24) Last saw Dr. Deshpande ~2 weeks ago. Has upcoming f/u appointment 09/07. continue local wound care. Follow blood cx (09/04) CRP elevated 164, +leukocytosis 16.4 100.4 temp overnight likely from fluid / possible pneumonia ?Seizure disorder; recent diagnosis Recent ER visit 08/25 for reported seizure activity. no prior hx of seizures. was told to follow up with Dr. Jeffers, Neuro as outpatient at the time confirm home meds, restart as appropriate IDDM2 accu-cheks, SSI confirm home insulin regimen start semglee 10u BID; titrate as needed Hyppertension Hyperlipidemia confirm home meds, restart as appropriate continue metoprolol, statin, nifedipine, losartan PRN hydralazine VTE: heparin sq Code: Full Dispo: Home pending dialysis, nephro/cardio recs Time Spent Managing Pts Care (In Minutes): 55
[2024-09-05] MEDS: INSULIN REGULAR (HUMAN) 100 UNIT/ML SQ SCH (07:30)
[2024-09-05] MEDS: FLU (Fluarix Triv) TS24-25(6MOS UP)/PF 45 MCG/0.5 ML Syringe IM ONE (07:38)
[2024-09-05] MEDS: LOSARTAN POTASSIUM 50 MG TABLET PO SCH (07:38)
[2024-09-05] MEDS: HEPARIN 5000 UNIT/ML 1 ML VIAL SQ SCH (07:38)
[2024-09-05] MEDS: CALCIUM ACETATE 667 MG TAB PO SCH (07:38)
[2024-09-05] MEDS: NIFEDIPINE XL 60 MG TABLET PO SCH ×2 (07:39→12:25)
[2024-09-05] MEDS: METOPROLOL XL 100 MG TAB PO SCH (07:39)
[2024-09-05 07:42] LABS: Absolute Basophils 0.1 K/uL (0-0.5); Absolute Eosinophils 0.3 K/uL (0-0.5); Absolute Lymphocytes (CBC) 0.9 K/uL (0.7-4.9); Absolute Monocytes 1.2 K/uL (0.1-1.3); Absolute Neutrophil 10.5 K/uL (1.8-8.0); Basophils % 0.4 % (0-1.3); Eosinophils % 2.1 % (0-4.4); Hematocrit 27.3 % (39.6-49.0); Hemoglobin 8.7 g/dL (13.6-17.9); Lymphocytes % 7.2 % (15.3-44.8); MCH 26.9 pg (27.0-35.0); MCHC 31.9 g/dL (32.0-36.0); MCV 84.3 fL (80-100); Monocytes % 9.1 % (3.3-12.3); Neutrophils % 81.2 % (41.7-73.7); Nucleated Red Blood Cells % 0.1 % (0-0); Platelets 245 thou/uL (152-406); RBC Red Blood Cell Count 3.24 M/uL (4.33-5.43); Red Cell Distribution Width 16.6 % (12.1-15.2)
[2024-09-05] MEDS: INSULIN GLARGINE 100 UNIT/ML SQ SCH (07:53)
[2024-09-05 07:55] LABS: Albumin 2.5 g/dL (3.4-5.0); Albumin/Globulin Ratio 0.5 (1.1-1.8); Anion Gap 17.9 mEq/L (5.0-15.0); Bilirubin Total 0.5 mg/dL (0.2-1.0); Globulin 4.6 g/dL (2.3-3.5); Phosphorus 7.8 mg/dL (2.5-4.9); Potassium 4.9 mEq/L (3.5-5.1); Protein, Total 7.1 g/dL (6.4-8.2)
[2024-09-05 07:57] LABS: Troponin High Sensitivity 106.2 pg/mL (<58.9)
[2024-09-05] MEDS: HYDRALAZINE HCL 20 MG/ML VIAL IV ONE (10:33)
--- NOTE | 2024-09-05 10:43 | P.CNS ---
Date of Consult: 09/05/24 Chief Complaint: SOB History of Present Illness: Patient with PMH of ESRD on HD started 3 months ago due to long standing HTN and DM, presented with worsening SOB, missed dialysis, report chest pressure for the last 2 days, and feels chest is congested, no palpitations, no syncope. Allergies aspirin Adverse Reaction (Verified 06/03/24 21:06) Hives/Rash Sulfa (Sulfonamide Antibiotics) Adverse Reaction (Verified 06/03/24 21:07) Hives/Rash sulfamethoxazole [From Bactrim] Adverse Reaction (Verified 06/03/24 21:07) Hives/Rash trimethoprim [From Bactrim] Adverse Reaction (Verified 06/03/24 21:07) Hives/Rash vancomycin Adverse Reaction (Verified 06/03/24 21:07) Hives/Rash Home medications list reviewed: Yes Home Medications: Atorvastatin Calcium 40 mg PO BEDTIME 06/03/24 Buproprion S.r. [Wellbutrin Sr*] 150 mg PO DAILY 06/03/24 Insulin Aspart [Novolog Flexpen] See Protocol SQ ACHS 06/03/24 Metoprolol Succinate 1 tab PO DAILY 06/03/24 NIFEdipine [Nifedipine ER] 60 mg PO BID 06/03/24 cloNIDine HCL [Clonidine HCl] 0.1 mg PO TID 06/03/24 Ferrous Sulfate 325 mg PO DAILY 30 Days #30 tab 06/10/24 Losartan Potassium [Cozaar*] 50 mg PO BID 30 Days #60 tab 06/10/24 Quetiapine Fumarate [Seroquel] 50 mg PO BEDTIME 30 Days #30 tab 06/10/24 Calcium Acetate 667 mg PO TID 07/18/24 Hydralazine [Apresoline*] 100 mg PO TID 07/18/24 Furosemide 40 mg PO DAILY 09/05/24 Furosemide [Lasix] 20 mg PO BEDTIME 09/05/24 Insulin Detemir [Levemir] 10 units SQ BID 09/05/24 Insulin Regular, Human [Humulin R U-500 Kwikpen] 10 unit SQ TID 09/05/24 - Past Medical/Surgical History Diabetic: Yes -: HTN -: DM I with CKD, Polyneuropathy & Retinopathy -: ESRD on HD (Dr. Oneal/ [facility]) -: Anemia -: Incision right foot - Family History Father Medical History: Heart disease, Diabetes, Stroke, Kidney disease Notes: DM. CHF Mother Medical History: Diabetes, Kidney disease Notes: Dementia showing early on set - Social History Smoking Status: Unknown if ever smoked Alcohol use: No CD- Drugs: No Caffeine use: Yes Place of Residence: Home Review of Systems 10-point ROS is otherwise unremarkable Physical Examination Temp Pulse Resp BP Pulse Ox 98.6 F 93 H 20 187/101 H 100 09/05/24 08:00 09/05/24 10:00 09/05/24 10:00 09/05/24 10:00 09/05/24 10:00 General: Alert, In no apparent distress HEENT: Atraumatic, PERRLA, Mucous membr. moist/pink, EOMI, Sclerae nonicteric Neck: Supple, 2+ carotid pulse no bruit, No LAD, Without JVD or thyroid abnormality Respiratory: Clear to auscultation bilaterally, Normal air movement Cardiovascular: Regular rate/rhythm, Normal S1 S2 Gastrointestinal: Normal bowel sounds, No tenderness Musculoskeletal: No tenderness Integumentary: No rashes Neurological: Normal gait, Normal speech, Normal tone, Normal affect Lymphatics: No axilla or inguinal lymphadenopathy Laboratory Data (last 24 hrs) 09/04/24 09/04/24 09/04/24 21:20 21:20 21:20 WBC 16.40 H Hgb 9.9 L Hct 31.2 L Plt Count 265 PT 13.3 H INR 1.19 Sodium 131 L Potassium 5.8 H BUN 76 H Creatinine 10.80 H Glucose 366 H Magnesium 1.9 Total Bilirubin 0.5 AST 24 ALT 61 Alkaline Phosphatase 169 H - Problems (1) Type 2 UT (myocardial infarction) Current Visit: Yes Status: Acute Plan: Troponin mild elevated, no significant delta, most likely type 2 UT from hypertenisve urgency and ESRD, missing dialysis. ASA 81 mg daily Lipitor 40 mg daily outpatient follow up for a stress test. (2) Hypertensive urgency Current Visit: Yes Status: Acute Plan: continue Toprol XL continue Losartan 50 mg bid continue Nifedpine 60 mg bid continue hydralazine 100 mg TID (3) ESRD (end stage renal disease) on dialysis Current Visit: Yes Status: Acute Plan: Patient is on Lasix IV, still make urine output, also getting dialysis appreciate nephrology input.
--- NOTE | 2024-09-05 12:08 | P.CNS ---
Date of Consult: 09/05/24 Reason for Consult: Respiratory distress Chief Complaint: SOB History of Present Illness: Patient is 34 years of age history of chronic renal failure on dialysis has been complaining of 2 days history of fever chills he came into the hospital of breath was found to have volume overload coughing up some dark red blood eyes any chest pain patient was treated with 6 weeks of antibiotics for his right foot osteomyelitis Allergies aspirin Adverse Reaction (Verified 06/03/24 21:06) Hives/Rash Sulfa (Sulfonamide Antibiotics) Adverse Reaction (Verified 06/03/24 21:07) Hives/Rash sulfamethoxazole [From Bactrim] Adverse Reaction (Verified 06/03/24 21:07) Hives/Rash trimethoprim [From Bactrim] Adverse Reaction (Verified 06/03/24 21:07) Hives/Rash vancomycin Adverse Reaction (Verified 06/03/24 21:07) Hives/Rash Home Medications: Atorvastatin Calcium 40 mg PO BEDTIME 06/03/24 Buproprion S.r. [Wellbutrin Sr*] 150 mg PO DAILY 06/03/24 Insulin Aspart [Novolog Flexpen] See Protocol SQ ACHS 06/03/24 Metoprolol Succinate 1 tab PO DAILY 06/03/24 NIFEdipine [Nifedipine ER] 60 mg PO BID 06/03/24 cloNIDine HCL [Clonidine HCl] 0.1 mg PO TID 06/03/24 Ferrous Sulfate 325 mg PO DAILY 30 Days #30 tab 06/10/24 Losartan Potassium [Cozaar*] 50 mg PO BID 30 Days #60 tab 06/10/24 Quetiapine Fumarate [Seroquel] 50 mg PO BEDTIME 30 Days #30 tab 06/10/24 Calcium Acetate 667 mg PO TID 07/18/24 Hydralazine [Apresoline*] 100 mg PO TID 07/18/24 Furosemide 40 mg PO DAILY 09/05/24 Furosemide [Lasix] 20 mg PO BEDTIME 09/05/24 Insulin Detemir [Levemir] 10 units SQ BID 09/05/24 Insulin Regular, Human [Humulin R U-500 Kwikpen] 10 unit SQ TID 09/05/24 - Past Medical/Surgical History Diabetic: Yes -: HTN -: DM I with CKD, Polyneuropathy & Retinopathy -: ESRD on HD (Dr. Oneal/ [facility]) -: Anemia -: Incision right foot - Family History Father Medical History: Heart disease, Diabetes, Stroke, Kidney disease Notes: DM. CHF Mother Medical History: Diabetes, Kidney disease Notes: Dementia showing early on set - Social History Smoking Status: Unknown if ever smoked Alcohol use: No CD- Drugs: No Caffeine use: Yes Place of Residence: Home Review of Systems 10-point ROS is otherwise unremarkable General: Weakness Respiratory: Shortness of Breath Physical Examination Temp Pulse Resp BP Pulse Ox 98.6 F 97 H 12 193/92 H 100 09/05/24 08:00 09/05/24 11:32 09/05/24 11:09 09/05/24 11:32 09/05/24 11:09 General: Alert, In no apparent distress, Oriented x3 Respiratory: Crackles/rales Cardiovascular: No edema (Heels bilaterally), Regular rate/rhythm, Normal S1 S2 Gastrointestinal: Normal bowel sounds, Soft and benign, No ascites Musculoskeletal: No swelling Laboratory Data (last 24 hrs) 09/04/24 09/04/24 09/04/24 21:20 21:20 21:20 WBC 16.40 H Hgb 9.9 L Hct 31.2 L Plt Count 265 PT 13.3 H INR 1.19 Sodium 131 L Potassium 5.8 H BUN 76 H Creatinine 10.80 H Glucose 366 H Magnesium 1.9 Total Bilirubin 0.5 AST 24 ALT 61 Alkaline Phosphatase 169 H - Problems (1) Pulmonary edema Current Visit: Yes Status: Acute Plan: Patient is 34 years of age admitted with acute shortness of breath with some hemoptysis probably has some volume overload pulmonary edema and has metabolic acidosis anemia of chronic disorder patient was febrile on admission may have superimposed pneumonia continue with dialysis and antibiotic had cefepime recently treated with 6 weeks of antibiotics for his osteomyelitis apparently was treated with ceftazidime chest x-ray reviewed is a stability of pneumonia on the right side or volume overload
[2024-09-05] MEDS: DOXYCYCLINE 100 MG CAP PO SCH (12:29)
[2024-09-05] MEDS: CEFEPIME 1 GM in NA CHLORIDE 0.9% 100 ML IV SCH (12:29)
[2024-09-05] MEDS: cloNIDine HCL 0.1 MG TAB PO SCH (13:46)
--- NOTE | 2024-09-05 20:10 | P.CNS ---
Date of Consult: 09/05/24 Reason for Consult: ESRD Requesting Physician: Tony Nunez Chief Complaint: SOB History of Present Illness: 34-year-old male with past medical history of ESRD on hemodialysis, diabetes, hypertension, seizure disorder, history of right foot osteomyelitis presents with acute shortness of breath and fever. Patient states he was feeling unwell this Wednesday and he has missed his hemodialysis. Last hemodialysis was on Wednesday09/01/2024. He was feeling tired and fatigued with subjective fever and started having shortness of breath which was progressively getting worse and was brought to ER. He was found to be hypoxic to 60s. He also complains of hemoptysis occasionally. He was assessed in the ER and was found to be fluid overloaded because of the missed dialysis and was admitted for further management. He was also found to be hyperkalemic and emergency dialysis was recommended. [id number] 00:03 This 34 yrs old Black Male presents to ER via Wheelchair with complaints of Shortness sp4 Of Breath, VOMITING BLOOD. 00:17 34-year-old male with end-stage renal disease on hemodialysis presents with acute sp4 shortness of breath and fever. Patient states he was feeling unwell this Wednesday and he has missed his hemodialysis. Last hemodialysis was on Wednesday09/01/2024. Patient states today he felt worsening fever fatigue shortness of breath patient arrived here and was desaturating into 60s. . Patient also reports he was spitting up some blood. Recent admission 07/18/2024 through 07/22/2024 for diabetic right foot wound with osteomyelitis, hyperglycemia, end-stage renal disease, proteinuria and hypertension. Patient's medications include atorvastatin before bedtime, Wellbutrin 150 daily, aspart subcu FlexPen, metoprolol daily, nifedipine 60 mg twice daily, clonidine 0.1 mg 3 times daily, ferrous sulfate 325 daily, losartan potassium 50 mg twice daily, quetiapine or Seroquel 50 mg p.o. bedtime, calcium acetate 3 times daily, hydralazine 100 3 times daily, insulin glargine 10 units subcu twice daily, docusate 100 mg p.o. twice daily, hydrocodone 5 every 6 hours as needed. Allergies aspirin Adverse Reaction (Verified 06/03/24 21:06) Hives/Rash Sulfa (Sulfonamide Antibiotics) Adverse Reaction (Verified 06/03/24 21:07) Hives/Rash sulfamethoxazole [From Bactrim] Adverse Reaction (Verified 06/03/24 21:07) Hives/Rash trimethoprim [From Bactrim] Adverse Reaction (Verified 06/03/24 21:07) Hives/Rash vancomycin Adverse Reaction (Verified 06/03/24 21:07) Hives/Rash Home medications list reviewed: Yes Home Medications: Atorvastatin Calcium 40 mg PO BEDTIME 06/03/24 Buproprion S.r. [Wellbutrin Sr*] 150 mg PO DAILY 06/03/24 Insulin Aspart [Novolog Flexpen] See Protocol SQ ACHS 06/03/24 Metoprolol Succinate 1 tab PO DAILY 06/03/24 NIFEdipine [Nifedipine ER] 60 mg PO BID 06/03/24 cloNIDine HCL [Clonidine HCl] 0.1 mg PO TID 06/03/24 Ferrous Sulfate 325 mg PO DAILY 30 Days #30 tab 06/10/24 Losartan Potassium [Cozaar*] 50 mg PO BID 30 Days #60 tab 06/10/24 Quetiapine Fumarate [Seroquel] 50 mg PO BEDTIME 30 Days #30 tab 06/10/24 Calcium Acetate 667 mg PO TID 07/18/24 Hydralazine [Apresoline*] 100 mg PO TID 07/18/24 Furosemide 40 mg PO DAILY 09/05/24 Furosemide [Lasix] 20 mg PO BEDTIME 09/05/24 Insulin Detemir [Levemir] 10 units SQ BID 09/05/24 Insulin Regular, Human [Humulin R U-500 Kwikpen] 10 unit SQ TID 09/05/24 - Past Medical/Surgical History Diabetic: Yes -: HTN -: DM I with CKD, Polyneuropathy & Retinopathy -: ESRD on HD (Dr. Oneal/ [facility]) -: Anemia -: Incision right foot - Family History Father Medical History: Heart disease, Diabetes, Stroke, Kidney disease Notes: DM. CHF Mother Medical History: Diabetes, Kidney disease Notes: Dementia showing early on set - Social History Smoking Status: Unknown if ever smoked Alcohol use: No CD- Drugs: No Caffeine use: Yes Place of Residence: Home Review of Systems 10-point ROS is otherwise unremarkable General: Malaise Respiratory: Shortness of Breath, SOB with Excertion Cardiovascular: Edema Physical Examination Temp Pulse Resp BP Pulse Ox 99.3 F 86 20 144/76 H 96 09/05/24 12:00 09/05/24 19:30 09/05/24 19:30 09/05/24 19:30 09/05/24 19:30 General: In no apparent distress, Oriented x3, Cooperative HEENT: Atraumatic Neck: Supple Respiratory: Diminished Cardiovascular: Regular rate/rhythm, Edema Gastrointestinal: Soft and benign, Non-distended Musculoskeletal: No clubbing, No contractures Integumentary: No rashes, No cyanosis Neurological: Normal speech Laboratory Data (last 24 hrs) 09/04/24 09/04/24 09/04/24 21:20 21:20 21:20 WBC 16.40 H Hgb 9.9 L Hct 31.2 L Plt Count 265 PT 13.3 H INR 1.19 Sodium 131 L Potassium 5.8 H BUN 76 H Creatinine 10.80 H Glucose 366 H Magnesium 1.9 Total Bilirubin 0.5 AST 24 ALT 61 Alkaline Phosphatase 169 H Imagings Data: [id number] EXAMINATION: ONE VIEW CHEST XR CLINICAL INDICATION: Male, 34 years old.,CHEST PAIN TECHNIQUE: Frontal chest projection is submitted. Examination is limited by patient positioning and technique. COMPARISON: 08/25/2024 FINDINGS: Interval development of fluffy central predominant airspace opacities more pronounced on the right. Suspected small right effusion. Right IJ dialysis catheter unchanged in position No pneumothorax or sizable left effusion. The heart is normal in size. Mediastinal contours are unremarkable. IMPRESSION: Findings suggestive of pulmonary edema or ARDS. Conclusions/Impression: ESRD on HD Hyperkalemia Metabolic Acidosis -Acute HD as ordered -Repeat HD tomorrow HTN with CKD -Continue Losartan & Nifedipine ER -Continue Metoprolol Acute Hypoxic Respiratory Failure due to Hypervolemia Peripheral Edema -Low sodium diet -HD with UF -Bipap prn DM I with CKD, Polyneuropathy and Peripheral Angiopathy -Continue Lantus -RISS Anemia in CKD -Retacrit prn CKD MBD Secondary HyperParathyroidism -Continue Phoslo Case reviewed with the ER physician Thank you kindly for the consultation Patient care 35min
[2024-09-05] MEDS: ATORVASTATIN 40 MG TAB PO SCH (20:50)
[2024-09-05] MEDS: QUETIAPINE 25 MG TAB PO SCH (22:17)
[2024-09-06 06:19] LABS: Absolute Basophils 0.1 K/uL (0-0.5); Absolute Eosinophils 0.6 K/uL (0-0.5); Absolute Lymphocytes (CBC) 1.2 K/uL (0.7-4.9); Absolute Monocytes 1.1 K/uL (0.1-1.3); Absolute Neutrophil 6.6 K/uL (1.8-8.0); Basophils % 0.7 % (0-1.3); Hematocrit 27.6 % (39.6-49.0); Lymphocytes % 12.3 % (15.3-44.8); MCH 27.4 pg (27.0-35.0); MCHC 32.7 g/dL (32.0-36.0); MCV 83.9 fL (80-100); MPV 7.9 fL (7.6-11.3); Monocytes % 11.2 % (3.3-12.3); Neutrophils % 69.8 % (41.7-73.7); Nucleated Red Blood Cells % 0.1 % (0-0); Platelets 258 thou/uL (152-406); Red Cell Distribution Width 16.2 % (12.1-15.2)
[2024-09-06 06:29] LABS: Albumin 2.3 g/dL (3.4-5.0); Anion Gap 12.3 mEq/L (5.0-15.0); Phosphorus 7.2 mg/dL (2.5-4.9); Potassium 3.3 mEq/L (3.5-5.1)
--- NOTE | 2024-09-06 08:08 | RAD REPORT ---
EXAMINATION: ONE VIEW CHEST XR CLINICAL INDICATION: Pneumonia Vs CHF TECHNIQUE: Frontal chest projection is submitted. Examination is limited by patient positioning and t echnique. COMPARISON: 09/04/2024 FINDINGS: There has been [id number] improvement in bilateral pulmonary opacities since 09/04/2024. The he art is mildly enlarged in size. Right-sided venous catheters tip in SVC. IMPRESSION: There has been mild improvement in lung aeration since comparison study.
--- NOTE | 2024-09-06 08:31 | P.PN ---
Date of Service: 09/06/24 Subjective: Doesn't feel as short of breath but continues to desat. Worsened with light activity Feels a little better compared to admission. Still feeling weak/rundown denies any worsening problems tolerated dialysis yesterday without issues afebrile ROS: 10 point ROS as noted above, otherwise negative Physical Exam: GEN: Alert, NAD CV: Regular rate and rhythm, b/l pedal edema Pulm: on HFNC 30L 60%FiO2, shortness of breath at rest, bilateral crackles/rales worse on right ABD: soft, nontender, nondistended Neuro: Normal speech, normal affect Problem List: Fluid overload Hyperkalemia Pseudohyponatremia ESRD on HD M[facility] Acute hypoxic respiratory failure secondary to hypervolemia Bacteremia, unknown origin Recent Right foot Osteomyelitis s/p I&D (07/19) Hemoptysis, post-tussive NSTEMI Seizure disorder; recent diagnosis IDDM2 Hyppertension Hyperlipidemia Fluid overload Hyperkalemia Pseudohyponatremia ESRD on HD [facility] Acute hypoxic respiratory failure secondary to hypervolemia on admission, presents with shortness of breath, subjective fevers, fatigue for 3 days. +Intermittent Hemopysis. Fluid overload possibly related to recently missed Dialysis. Last dialyzed Fr iday 09/01. Reportedly hypoxic 64% on RA. Worsened with laying flat. Placed on non-rebreather and admitted to ICU. CXR (09/04): findings suggestive of pulm edema or ARDS. +suspected small right effusion. patient reports fluid usually favors right side when overloaded in the past Nephrology, Pulm consulted continue IV lasix 40 mg q8h PRN albuterol Pain control Bacteremia, unknown origin Recent Right foot Osteomyelitis s/p I&D (07/19) unknown source. There was some concern for possible superimposed pneumonia. Recently treated for osteomyeltis. Wound cultures previously grew E. coli and Strep 07/19/24. Blood cx without growth at the time. s/p 6 weeks of fortaz. (completed 09/01/24) Last saw Dr. Deshpande ~2 weeks ago. Has upcoming f/u appointment 09/07. continue local wound care. CRP levels fluctuating. Leukocytosis resolved 09/06. Blood cx (09/04): 1/4 positive; GPC on stain continue empiric cefepime (09/05-) ID consulted Hemoptysis , post-tussive per ER notes, reports intermittently spitting up blood pt describes this started after coughing fits -consistent with post-tussive hemoptysis No further episodes monitor H&H NSTEMI, likely demand ischemia no chest pain suspect demand ischemia in setting of ESRD/Hypertensive urgency trend troponin's, Monitor on telemetry continue metoprolol, statin Cardiology consulted - recommended outpatient stress test Seizure disorder; recent diagnosis Recent ER visit 08/25 for reported seizure activity. no prior hx of seizures. was told to follow up with Dr. Jeffers, Neuro as outpatient at the time confirm home meds, restart as appropriate IDDM2 accu-cheks, SSI confirm home insulin regimen continue semglee 10u BID; titrate as needed Hyppertension Hyperlipidemia confirm home meds, restart as appropriate continue metoprolol, statin, nifedipine, losartan PRN hydralazine VTE: heparin sq Code: Full Dispo: Home pending dialysis, cultures continue ICU Time Spent Managing Pts Care (In Minutes): 55
[2024-09-06] MEDS: POTASSIUM CL SA 10 MEQ TAB PO ONE (10:35)
[2024-09-06] MEDS: EPOETIN ALFA 10,000 UNIT/ML VIAL IV SCH (13:08)
--- NOTE | 2024-09-06 14:29 | CON ---
History Of Present Illness: This is a 34-year-old male with significant past medical history of end- stage renal disease on hemodialysis. Missed his dialysis on Wednesday. I was consulted for bacteremia secondary to gram-positive cocci in clusters. The patient has allergies to vancomycin. Diabetes fani litus, hypertension, seizure disorder, history of right foot osteomyelitis, coming in with shortness of breath and fevers. Denies any other problems. Still having some chest discomfort, at this time. Getting dialyzed on while at the time of interview. Past Medical History: As per HPI. Social History: Nonsmoker. Nondrinker. Family History: Noncontributory. Medications: Cefepime and doxycycline. Allergies: ASPIRIN, SULFA, VANCOMYCIN CAUSING RASH AND HIVES. Review of Systems: A 10-point review was performed. Physical Examination: General: This is a 34-year-old male, lying in bed, getting dialyzed, not in any acute cardiopulmonar y distress. Vital Signs: Temperature 98, T-max of 100.4, pulse 73, respirations 18, blood pressure 107/63. HEENT: Unremarkable. Neck: Supple. Lungs: Basal crackles. Heart: S1, S2. Regular. Abdomen: Soft, nontender. Bowel sounds present. Extremities: No edema. Laboratory Data: WBC 9.5 down from 16.4, hemoglobin 9, platelets 258. Chemistry shows BUN of 51, cr eatinine 8.5, albumin level is 2.3. Micro data shows blood cultures growing gram-positive cocci in c lusters, 1 out of 2 bottles. Assessment And Plan: Bacteremia secondary to gram-positive cocci in clusters. We will start the pat ient on daptomycin for 14 days every 48 hours. Repeat blood cultures in 2 days. Continue cefepime. Continue supportive care. Diabetes mellitus, end-stage renal disease. Leukocytosis, improving. An emia of chronic disease. We will follow the patient as needed. Thank you for consult. NF/MODL Voice ID: [id number] Report ID: [id number]
[2024-09-06] MEDS: DAPTOmycin 600 MG in NA CHLORIDE 0.9% 100 ML IVP SCH (15:27)
--- NOTE | 2024-09-06 21:31 | P.PN ---
Date of Service: 09/06/24 Vital Signs Temp Pulse Resp BP Pulse Ox 98.2 F 73 16 141/87 H 97 09/06/24 20:00 09/06/24 21:00 09/06/24 21:00 09/06/24 21:00 09/06/24 21:00 Medications Acetaminophen (Acetaminophen 325 Mg Tablet) 650 mg PO Q4HP PRN PRN Reason: Pain scale 2-4 (Mild) Hydrocodone Bitart/Acetaminophen (Hydrocodone/Apap 5/325 Mg Tab) 1 tab PO Q4H PRN PRN Reason: Pain scale 5-7 (Moderate) Last Admin: 09/05/24 20:50 Dose: 1 tab Albuterol Sulfate (Albuterol 2.5 Mg/3 Ml Neb Daysi) 2.5 mg NEB [id number] PRN PRN Reason: SHORTNESS OF BREATH Atorvastatin Calcium (Atorvastatin 40 Mg Tab) 40 mg PO BEDTIME [facility] Last Admin: 09/06/24 20:45 Dose: 40 mg Calcium Acetate (Calcium Acetate 667 Mg Tab) 667 mg PO TID [facility] Last Admin: 09/06/24 20:45 Dose: 667 mg Clonidine HCl (Clonidine Hcl 0.1 Mg Tab) 0.1 mg PO TID [facility] Last Admin: 09/06/24 20:42 Dose: 0.1 mg Epoetin Victoriano (Epoetin Victoriano 10,000 Unit/Ml Vial) 10,000 unit IV EVERY HD [facility] Last Admin: 09/06/24 13:08 Dose: 10,000 unit Furosemide (Furosemide 40 Mg/4 Ml Vial) 40 mg IV Q8HR [facility] Last Admin: 09/06/24 17:38 Dose: 40 mg Glucagon (Glucagon 1 Mg/Vial) 1 mg IM 1X PRN PRN Reason: HYPOGLYCEMIA Heparin Sodium (Porcine) (Heparin 5000 Unit/Ml 1 Ml Vial) 5,000 unit SQ Q12HR [facility] Last Admin: 09/06/24 20:40 Dose: Not Given Heparin Sodium (Porcine) (Heparin 1,000 Unit/Ml Vial) 6,000 unit IV EVERY HD PRN PRN Reason: FOR DIALYSIS CATHETER CARE Last Admin: 09/06/24 15:16 Dose: 6,000 unit Heparin Sodium (Porcine) (Heparin 1,000 Unit/Ml Vial) 2,000 unit IV EVERY HD PRN PRN Reason: prevent hd lines from clotting Last Admin: 09/06/24 11:46 Dose: 2,000 unit Hydralazine HCl (Hydralazine Hcl 20 Mg/Ml Vial) 10 mg IV Q6HP PRN PRN Reason: FOR SBP>160 OR DBP>100 MMHG Last Admin: 09/05/24 03:49 Dose: 10 mg Dextrose (Dextrose 10% Water Iv Soln.) 125 mls @ 0 mls/hr IV PRN PRN; Protocol PRN Reason: HYPOGLYCEMIA Cefepime HCl 1 gm/ Sodium (Chloride) 100 mls @ 200 mls/hr IV DAILY@1800 [facility]; Protocol Last Admin: 09/06/24 17:38 Dose: 100 mls Daptomycin 600 mg/ Sodium (Chloride) 100 mls @ 100 mls/hr IVP Q48H [facility]; Protocol Last Admin: 09/06/24 15:27 Dose: 100 mls Insulin Glargine (Insulin Glargine 100 Unit/Ml) 10 unit SQ BID [facility] Last Admin: 09/06/24 20:38 Dose: 10 unit Insulin Human Regular (Insulin Regular (Human) 100 Unit/Ml) 0 unit SQ ACHS [facility]; Protocol Last Admin: 09/06/24 20:37 Dose: 5 unit Losartan Potassium (Losartan Potassium 50 Mg Tablet) 50 mg PO BID [facility] Last Admin: 09/06/24 20:43 Dose: 50 mg Metoprolol Succinate (Metoprolol Xl 100 Mg Tab) 100 mg PO DAILY [facility] Last Admin: 09/06/24 08:48 Dose: 100 mg Morphine Sulfate (Morphine 2 Mg/Ml Syr) 2 mg IV Q4H PRN PRN Reason: Pain scale 8-10 (Severe) Last Admin: 09/06/24 20:38 Dose: 2 mg Nifedipine (Nifedipine Xl 60 Mg Tablet) 60 mg PO BID [facility] Last Admin: 09/06/24 20:44 Dose: 60 mg Ondansetron HCl (Ondansetron 4 Mg/2 Ml Vial) 4 mg IV Q6HP PRN PRN Reason: NAUSEA / VOMITING Quetiapine Fumarate (Quetiapine 25 Mg Tab) 50 mg PO BEDTIME [facility] Last Admin: 09/06/24 20:40 Dose: 50 mg Microbiology Results 09/04/24 21:35 Blood - Blood Aerobic Blood Culture - Preliminary No growth in 24 hours. 09/04/24 21:35 Blood - Blood Anaerobic Blood Culture - Preliminary No growth in 24 hours. 09/04/24 21:20 Nasopharnyx Influenza Type A Antigen Screen - Final 09/04/24 21:20 Nasopharnyx Influenza Type B Antigen Screen - Final Assessment/ Plan: Nephrology Dyspnea with hypoxia No chest pain No acute events overnight Vitals, medications, blood work and imaging reviewed in the chart General: In no apparent distress, Oriented x3, Cooperative HEENT: Atraumatic Neck: Supple Respiratory: Diminished Cardiovascular: Regular rate/rhythm, Edema Gastrointestinal: Soft and benign, Non-distended Musculoskeletal: No clubbing, No contractures Integumentary: No rashes, No cyanosis Neurological: Normal speech Laboratory Data (last 24 hrs) 09/04/24 09/04/24 09/04/24 21:20 21:20 21:20 WBC 16.40 H Hgb 9.9 L Hct 31.2 L Plt Count 265 PT 13.3 H INR 1.19 Sodium 131 L Potassium 5.8 H BUN 76 H Creatinine 10.80 H Glucose 366 H Magnesium 1.9 Total Bilirubin 0.5 AST 24 ALT 61 Alkaline Phosphatase 169 H Imagings Data: [id number] EXAMINATION: ONE VIEW CHEST XR CLINICAL INDICATION: Male, 34 years old.,CHEST PAIN TECHNIQUE: Frontal chest projection is submitted. Examination is limited by patient positioning and technique. COMPARISON: 08/25/2024 FINDINGS: Interval development of fluffy central predominant airspace opacities more pronounced on the right. Suspected small right effusion. Right IJ dialysis catheter unchanged in position No pneumothorax or sizable left effusion. The heart is normal in size. Mediastinal contours are unremarkable. IMPRESSION: Findings suggestive of pulmonary edema or ARDS. Conclusions/Impression: ESRD on HD Hyperkalemia Metabolic Acidosis -Acute HD as ordered HTN with CKD -Continue Losartan & Nifedipine ER -Continue Metoprolol Acute Hypoxic Respiratory Failure due to Hypervolemia Peripheral Edema -Low sodium diet -HD with UF -Bipap prn DM I with CKD, Polyneuropathy and Peripheral Angiopathy -Continue Lantus -RISS Anemia in CKD -Retacrit prn CKD MBD Secondary HyperParathyroidism -Continue Phoslo Case reviewed with Dr. Nunez
[2024-09-07 05:41] LABS: Absolute Basophils 0.1 K/uL (0-0.5); Absolute Eosinophils 0.6 K/uL (0-0.5); Absolute Lymphocytes (CBC) 1.6 K/uL (0.7-4.9); Absolute Monocytes 1.1 K/uL (0.1-1.3); Absolute Neutrophil 5.2 K/uL (1.8-8.0); Basophils % 0.8 % (0-1.3); Eosinophils % 6.8 % (0-4.4); Hematocrit 31.3 % (39.6-49.0); Hemoglobin 10.2 g/dL (13.6-17.9); Lymphocytes % 18.5 % (15.3-44.8); MCH 27.1 pg (27.0-35.0); MCHC 32.5 g/dL (32.0-36.0); MCV 83.4 fL (80-100); MPV 7.7 fL (7.6-11.3); Monocytes % 12.9 % (3.3-12.3); Platelets 310 thou/uL (152-406); RBC Red Blood Cell Count 3.75 M/uL (4.33-5.43); Red Cell Distribution Width 16.4 % (12.1-15.2)
[2024-09-07 05:59] LABS: Anion Gap 12.4 mEq/L (5.0-15.0); Phosphorus 5.2 mg/dL (2.5-4.9); Potassium 3.4 mEq/L (3.5-5.1)
--- NOTE | 2024-09-07 08:07 | P.PN ---
Date of Service: 09/07/24 Subjective: Breathing feels a little easier today. remains on HFNC; improving - down to 15L 45% FiO2 tolerated dialysis yesterday without issues Cough ~same. Doesn't feel worse. edema improving ROS: 10 point ROS as noted above, otherwise negative Physical Exam: GEN: Alert, NAD CV: Regular rate and rhythm, b/l pedal edema Pulm: on HFNC 15L 45%FiO2, shortness of breath at rest, bilateral crackles/rales worse on right ABD: soft, nontender, nondistended Neuro: Normal speech, normal affect Problem List: Acute hypoxic respiratory failure secondary to hypervolemia Hyperkalemia Pseudohyponatremia ESRD on HD MWF Staph CoNS Bacteremia, Possible contaminant Recent Right foot Osteomyelitis s/p I&D (07/19) Hemoptysis, post-tussive NSTEMI, likely demand ischemia Seizure disorder; recent diagnosis IDDM2 Hyppertension Hyperlipidemia Hyperkalemia Pseudohyponatremia ESRD on HD MWF Acute hypoxic respiratory failure secondary to hypervolemia on admission, presents with shortness of breath, subjective fevers, fatigue for 3 days. +Intermittent Hemopysis. Fluid overload possibly related to recently missed Dialysis. Reportedly hypoxic 64% on RA in ED. Worsened with laying flat. Placed on non-rebreather and admitted to ICU. CXR (09/04): findings suggestive of pulm edema or ARDS. +suspected small right effusion. patient reports fluid usually favors right side when overloaded in the past Nephrology, Pulm consulted continue IV lasix 40 mg q8h PRN albuterol Pain control Wean oxygen as tolerated. Doesn't use oxygen at home. Oxygen requirements slowly improving anticipate another round of dialysis tomorrow Staph CoNS Bacteremia, Possible contaminant Recent Right foot Osteomyelitis s/p I&D (07/19) unknown source. ?possible contaminated specimen. There was some concern for possible superimposed pneumonia. Recently treated for osteomyeltis. Wound cultures previously grew E. coli and Strep 07/19/24. Blood cx without growth at the time. s/p 6 weeks of fortaz. (completed 09/01/24) Last saw Dr. Deshpande ~2 weeks ago. Missed f/u appointment this week d/t hospitalization. (09/07) continue local wound care. CRP improving. Leukocytosis resolved 09/06. Blood cx (09/04): 1/ bottles with Staph CoNS; Possible contaminant continue empiric cefepime and daptomycin for now (09/05-) daptomycin added 09/06 per ID recs repeat blood cultures tomorrow ID is following Hemoptysis , post-tussive per ER notes, reports intermittently spitting up blood pt describes this started after coughing fits -consistent with post-tussive hemoptysis No further episodes monitor H&H NSTEMI, likely demand ischemia no chest pain suspect demand ischemia in setting of ESRD/Hypertensive urgency trend troponin's, Monitor on telemetry continue metoprolol, statin Cardiology consulted - recommended outpatient stress test Seizure disorder; recent diagnosis Recent ER visit 08/25 for reported seizure activity. no prior hx of seizures. was told to follow up with Dr. Jeffers, Neuro as outpatient at the time confirm home meds, restart as appropriate IDDM2 accu-cheks, SSI confirm home insulin regimen continue semglee 10u BID; titrate as needed Hyppertension Hyperlipidemia confirm home meds, restart as appropriate continue metoprolol, statin, nifedipine, losartan PRN hydralazine VTE: heparin sq Code: Full Dispo: Home, several days pending dialysis, repeat blood cultures without growth Time Spent Managing Pts Care (In Minutes): 55
--- NOTE | 2024-09-07 11:34 | EKG ---
Test Date: 2024-09-04 Test Time: 22:30:17 User Experience Lead: BUFFY MEASUREMENT RESULTS: Intervals: Rate: 86 IN: 208 QRSD: 118 QT: 420 QTc: 502 [place]: P: 61 IN: 208 QRS: -35 T: 93 INTERPRETIVE STATEMENTS: Normal sinus rhythm Left axis deviation Cannot rule out Anterior infarct, age undetermined T wave abnormality, consider lateral ischemia Prolonged QT Abnormal ECG Compared to ECG 08/25/2024 20:34:28 Left-axis deviation now present Prolonged QT interval now present Left anterior fascicular block no longer present Left ventricular hypertrophy no longer present Myocardial infarct finding still present T-wave abnormality still present Possible ischemia still present Electronically Signed On 09-07-24 11:34:07 HAND II CUTTER by Gerson Santos
[2024-09-07] MEDS ORDERED: MANNITOL 25% 12.5 GM/50 ML VIAL IV PRN (20:36)
--- NOTE | 2024-09-07 20:41 | P.PN ---
Date of Service: 09/07/24 Vital Signs Temp Pulse Resp BP Pulse Ox 97.9 F 72 20 125/77 91 09/07/24 16:00 09/07/24 17:02 09/07/24 17:00 09/07/24 17:02 09/07/24 17:00 Medications Acetaminophen (Acetaminophen 325 Mg Tablet) 650 mg PO Q4HP PRN PRN Reason: Pain scale 2-4 (Mild) Hydrocodone Bitart/Acetaminophen (Hydrocodone/Apap 5/325 Mg Tab) 1 tab PO Q4H PRN PRN Reason: Pain scale 5-7 (Moderate) Last Admin: 09/05/24 20:50 Dose: 1 tab Albuterol Sulfate (Albuterol 2.5 Mg/3 Ml Neb Daysi) 2.5 mg NEB [id number] PRN PRN Reason: SHORTNESS OF BREATH Atorvastatin Calcium (Atorvastatin 40 Mg Tab) 40 mg PO BEDTIME [facility] Last Admin: 09/06/24 20:45 Dose: 40 mg Calcium Acetate (Calcium Acetate 667 Mg Tab) 667 mg PO TID TEAGAN Last Admin: 09/07/24 13:07 Dose: 667 mg Clonidine HCl (Clonidine Hcl 0.1 Mg Tab) 0.1 mg PO TID TEAGAN Last Admin: 09/07/24 13:08 Dose: 0.1 mg Epoetin Victoriano (Epoetin Victoriano 10,000 Unit/Ml Vial) 10,000 unit IV EVERY HD [facility] Last Admin: 09/06/24 13:08 Dose: 10,000 unit Furosemide (Furosemide 40 Mg/4 Ml Vial) 40 mg IV Q8HR TEAGAN Last Admin: 09/07/24 17:02 Dose: 40 mg Glucagon (Glucagon 1 Mg/Vial) 1 mg IM 1X PRN PRN Reason: HYPOGLYCEMIA Heparin Sodium (Porcine) (Heparin 5000 Unit/Ml 1 Ml Vial) 5,000 unit SQ Q12HR TEAGAN Last Admin: 09/07/24 08:46 Dose: 5,000 unit Heparin Sodium (Porcine) (Heparin 1,000 Unit/Ml Vial) 6,000 unit IV EVERY HD PRN PRN Reason: FOR DIALYSIS CATHETER CARE Last Admin: 09/06/24 15:16 Dose: 6,000 unit Heparin Sodium (Porcine) (Heparin 1,000 Unit/Ml Vial) 2,000 unit IV EVERY HD PRN PRN Reason: prevent hd lines from clotting Last Admin: 09/06/24 11:46 Dose: 2,000 unit Hydralazine HCl (Hydralazine Hcl 20 Mg/Ml Vial) 10 mg IV Q6HP PRN PRN Reason: FOR SBP>160 OR DBP>100 MMHG Last Admin: 09/05/24 03:49 Dose: 10 mg Dextrose (Dextrose 10% Water Iv Soln.) 125 mls @ 0 mls/hr IV PRN PRN; Protocol PRN Reason: HYPOGLYCEMIA Cefepime HCl 1 gm/ Sodium (Chloride) 100 mls @ 200 mls/hr IV DAILY@1800 TEAGAN; Protocol Last Admin: 09/07/24 17:01 Dose: 100 mls Daptomycin 600 mg/ Sodium (Chloride) 100 mls @ 100 mls/hr IVP Q48H [facility]; Protocol Last Admin: 09/06/24 15:27 Dose: 100 mls Albumin Human (Albumin 25%) 50 mls @ 100 mls/hr IV EVERY HD TEAGAN Insulin Glargine (Insulin Glargine 100 Unit/Ml) 10 unit SQ BID [facility] Last Admin: 09/07/24 08:46 Dose: 10 unit Insulin Human Regular (Insulin Regular (Human) 100 Unit/Ml) 0 unit SQ ACHS [facility]; Protocol Last Admin: 09/07/24 15:45 Dose: Not Given Losartan Potassium (Losartan Potassium 50 Mg Tablet) 50 mg PO BID [facility] Last Admin: 09/07/24 08:46 Dose: 50 mg Mannitol (Mannitol 25% 12.5 Gm/50 Ml Vial) 12.5 gm IV EVERY HD PRN PRN Reason: Titrate to SBP (MUST DEFINE) Metoprolol Succinate (Metoprolol Xl 100 Mg Tab) 100 mg PO DAILY [facility] Last Admin: 09/07/24 08:45 Dose: 100 mg Morphine Sulfate (Morphine 2 Mg/Ml Syr) 2 mg IV Q4H PRN PRN Reason: Pain scale 8-10 (Severe) Last Admin: 09/07/24 09:28 Dose: 2 mg Nifedipine (Nifedipine Xl 60 Mg Tablet) 60 mg PO BID [facility] Last Admin: 09/07/24 08:46 Dose: 60 mg Ondansetron HCl (Ondansetron 4 Mg/2 Ml Vial) 4 mg IV Q6HP PRN PRN Reason: NAUSEA / VOMITING Quetiapine Fumarate (Quetiapine 25 Mg Tab) 50 mg PO BEDTIME [facility] Last Admin: 09/06/24 20:40 Dose: 50 mg Microbiology Results 09/04/24 21:35 Blood - Blood Aerobic Blood Culture - Preliminary No growth in 24 hours. 09/04/24 21:35 Blood - Blood Anaerobic Blood Culture - Preliminary No growth in 24 hours. 09/04/24 21:20 Nasopharnyx Influenza Type A Antigen Screen - Final 09/04/24 21:20 Nasopharnyx Influenza Type B Antigen Screen - Final Assessment/ Plan: Nephrology Persistent hypoxia worse with activity No chest pain No acute events overnight Vitals, medications, blood work and imaging reviewed in the chart General: In no apparent distress, Oriented x3, Cooperative HEENT: Atraumatic Neck: Supple Respiratory: CTA-A Cardiovascular: Regular rate/rhythm, No Edema Gastrointestinal: Soft and benign, Non-distended Musculoskeletal: No clubbing, No contractures Integumentary: No rashes, No cyanosis Neurological: Normal speech Laboratory Data (last 24 hrs) 09/04/24 09/04/24 09/04/24 21:20 21:20 21:20 WBC 16.40 H Hgb 9.9 L Hct 31.2 L Plt Count 265 PT 13.3 H INR 1.19 Sodium 131 L Potassium 5.8 H BUN 76 H Creatinine 10.80 H Glucose 366 H Magnesium 1.9 Total Bilirubin 0.5 AST 24 ALT 61 Alkaline Phosphatase 169 H Imagings Data: [id number] EXAMINATION: ONE VIEW CHEST XR CLINICAL INDICATION: Male, 34 years old.,CHEST PAIN TECHNIQUE: Frontal chest projection is submitted. Examination is limited by patient positioning and technique. COMPARISON: 08/25/2024 FINDINGS: Interval development of fluffy central predominant airspace opacities more pronounced on the right. Suspected small right effusion. Right IJ dialysis catheter unchanged in position No pneumothorax or sizable left effusion. The heart is normal in size. Mediastinal contours are unremarkable. IMPRESSION: Findings suggestive of pulmonary edema or ARDS. Conclusions/Impression: ESRD on HD -Next HD tomorrow Hypokalemia -Replete prn HTN with CKD -Continue Losartan & Nifedipine ER -Continue Metoprolol Acute Hypoxic Respiratory Failure due to Hypervolemia Peripheral Edema -Low sodium diet -HD with UF -Bipap prn DM I with CKD, Polyneuropathy and Peripheral Angiopathy -Continue Lantus -RISS Anemia in CKD -Retacrit qHD CKD MBD Secondary HyperParathyroidism -Continue Karthik Case reviewed with Dr. Nunez Patient care 35min
[2024-09-07] MEDS ORDERED: ALBUMIN HUMAN 25% 50 ML IV SCH (21:00)
[2024-09-08 06:49] LABS: Absolute Basophils 0.1 K/uL (0-0.5); Absolute Eosinophils 0.5 K/uL (0-0.5); Absolute Lymphocytes (CBC) 1.4 K/uL (0.7-4.9); Absolute Neutrophil 4.9 K/uL (1.8-8.0); Basophils % 0.9 % (0-1.3); Eosinophils % 6.1 % (0-4.4); Hematocrit 32.4 % (39.6-49.0); Hemoglobin 10.4 g/dL (13.6-17.9); Lymphocytes % 17.6 % (15.3-44.8); MCH 26.8 pg (27.0-35.0); MCHC 31.9 g/dL (32.0-36.0); MCV 84.1 fL (80-100); MPV 7.4 fL (7.6-11.3); Monocytes % 12.9 % (3.3-12.3); Neutrophils % 62.5 % (41.7-73.7); Platelets 347 thou/uL (152-406); RBC Red Blood Cell Count 3.86 M/uL (4.33-5.43); Red Cell Distribution Width 16.2 % (12.1-15.2)
[2024-09-08 08:35] LABS: Anion Gap 12.2 mEq/L (5.0-15.0); Magnesium 2.5 mg/dL (1.6-2.4); Phosphorus 5.8 mg/dL (2.5-4.9); Potassium 4.2 mEq/L (3.5-5.1)
--- NOTE | 2024-09-08 11:12 | P.PN ---
Nephrology Pt seen on HD, tolerating session, reports dyspnea improved, not needing O2, BP ok when seen, denies Rt foot pain Vitals, medications, blood work and imaging reviewed in the chart NAD. Rt IJ CVC Normal Respiratory Effort. Non tachpnec RRR. ND Abd. PD catheter present. Rt LE edema improved. Rt foot extensively wrapped AAO. Normal speech. ESRD -HD today per OP regimen, metab profile stable -As OP need to f/u with PD program to transition to [facility] so CVC can come out HTN with CKD -Continue meds, BP not as accelerated here, f/u post HD BP DM I with CKD, Polyneuropathy, Retinopathy and Right Charcot Foot with ulcer with concern for osteomyelitis this fall -Rt lateral food wound s/p debridment s/p 4-6 weeks of Abx Possible gram positive bacteremia on g/s 09/23 bottle -unclear if contaminant but with the above history, agree with current Abx coverage as per ID Anemia in CKD -Acceptable H/H currently
--- NOTE | 2024-09-08 11:18 | P.PN ---
Date of Service: 09/08/24 Subjective: off oxygen since yesterday afternoon Breathing more comfortably on RA tolerated dialysis without issues no events overnight afebrile ROS: 10 point ROS as noted above, otherwise negative Physical Exam: GEN: Alert, NAD CV: Regular rate and rhythm, b/l pedal edema Pulm: non-labored respirations on RA, clear ABD: soft, nontender, nondistended Neuro: Normal speech, normal affect Problem List: Acute hypoxic respiratory failure secondary to hypervolemia Hyperkalemia Pseudohyponatremia ESRD on HD MWF Staph CoNS Bacteremia, Possible contaminant Recent Right foot Osteomyelitis s/p I&D (07/19) Hemoptysis, post-tussive NSTEMI, likely demand ischemia Seizure disorder; recent diagnosis IDDM2 Hyppertension Hyperlipidemia Acute hypoxic respiratory failure secondary to hypervolemia Hyperkalemia Pseudohyponatremia ESRD on HD MWF on admission, presents with shortness of breath, subjective fevers, fatigue for 3 days. +Intermittent Hemopysis. Fluid overload possibly related to recently missed Dialysis. Reportedly hypoxic 64% on RA in ED. Worsened with laying flat. Placed on non-rebreather and admitted to ICU. CXR (09/04): findings suggestive of pulm edema or ARDS. +suspected small right effusion. patient reports fluid usually favors right side when overloaded in the past Nephrology, Pulm consulted continue IV lasix 40 mg q8h PRN albuterol Off oxygen since yesterday afternoon. dialysis today Staph CoNS Bacteremia, Possible contaminant Recent Right foot Osteomyelitis s/p I&D (07/19) unknown source. ?possible contaminated specimen. There was some concern for possible superimposed pneumonia. Recently treated for osteomyeltis. Wound cultures previously grew E. coli and Strep 07/19/24. Blood cx without growth at the time. s/p 6 weeks of fortaz. (completed 09/01/24) Last saw Dr. Deshpande ~2 weeks ago. Missed f/u appointment this week d/t hospitalization. (09/07) continue local wound care. CRP improving. Leukocytosis resolved 09/06. Blood cx (09/04): 1/4 bottles with Staph CoNS; Possible contaminant continue empiric cefepime and daptomycin for now (09/05-) daptomycin added 09/06 per ID recs repeat blood cultures pending ID is following Hemoptysis , post-tussive per ER notes, reports intermittently spitting up blood pt describes this started after coughing fits -consistent with post-tussive hemoptysis No further episodes monitor H&H NSTEMI, likely demand ischemia no chest pain suspect demand ischemia in setting of ESRD/Hypertensive urgency trend troponin's, Monitor on telemetry continue metoprolol, statin Cardiology consulted - recommended outpatient stress test Seizure disorder; recent diagnosis Recent ER visit 08/25 for reported seizure activity. no prior hx of seizures. was told to follow up with Dr. Jeffers, Neuro as outpatient at the time confirm home meds, restart as appropriate IDDM2 accu-cheks, SSI confirm home insulin regimen continue semglee 10u BID; titrate as needed Hyppertension Hyperlipidemia confirm home meds, restart as appropriate continue metoprolol, statin, nifedipine, losartan PRN hydralazine VTE: heparin sq Code: Full Dispo: Home, several days pending dialysis, repeat blood cultures without growth Time Spent Managing Pts Care (In Minutes): 45
[2024-09-09 09:28] LABS: Albumin 2.4 g/dL (3.4-5.0); Anion Gap 10.1 mEq/L (5.0-15.0); Magnesium 2.3 mg/dL (1.6-2.4); Potassium 4.1 mEq/L (3.5-5.1)
--- NOTE | 2024-09-09 12:32 | P.PN ---
Date of Service: 09/09/24 Subjective: feeling improvement each day breathing more comfortably on RA no issues overnight afebrile ROS: 10 point ROS as noted above, otherwise negative Physical Exam: GEN: Alert, NAD CV: Regular rate and rhythm, b/l pedal edema Pulm: non-labored respirations on RA, clear ABD: soft, nontender, nondistended Neuro: Normal speech, normal affect Problem List: Acute hypoxic respiratory failure secondary to hypervolemia Hyperkalemia Pseudohyponatremia ESRD on HD MWF Staph CoNS Bacteremia, Suspect contaminant Recent Right foot Osteomyelitis s/p I&D (07/19) Hemoptysis, post-tussive NSTEMI, likely demand ischemia Seizure disorder; recent diagnosis IDDM2 Hyppertension Hyperlipidemia Acute hypoxic respiratory failure secondary to hypervolemia Hyperkalemia Pseudohyponatremia ESRD on HD MWF on admission, presents with shortness of breath, subjective fevers, fatigue for 3 days. +Intermittent Hemopysis. Fluid overload possibly related to recently missed Dialysis. Reportedly hypoxic 64% on RA in ED. Worsened with laying flat. Placed on non-rebreather and admitted to ICU. Off oxygen since 09/07 CXR (09/04): findings suggestive of pulm edema or ARDS. +suspected small right effusion. patient reports fluid usually favors right side when overloaded in the past Nephrology, Pulm consulted continue IV lasix 40 mg q8h PRN albuterol Staph CoNS Bacteremia, Suspect contaminant Recent Right foot Osteomyelitis s/p I&D (07/19) unknown source. ?possible contaminated specimen. There was some concern for possible superimposed pneumonia. Recently treated for osteomyeltis. Wound cultures previously grew E. coli and Strep 07/19/24. Blood cx without growth at the time. s/p 6 weeks of fortaz. (completed 09/01/24) Last saw Dr. Deshpande ~2 weeks ago. Missed f/u appointment this week d/t hospitalization. (09/07) continue local wound care. CRP improving. Leukocytosis resolved 09/06. Blood cx (09/04): 1/4 bottles with Staph CoNS; suspect contaminant continue empiric cefepime (09/05-) daptomycin added 09/06 per ID recs; dc 09/09 repeat blood cultures (09/08): NGTD ID is following Hemoptysis , post-tussive per ER notes, reports intermittently spitting up blood No further episodes NSTEMI, likely demand ischemia no chest pain suspect demand ischemia in setting of ESRD/Hypertensive urgency continue metoprolol, statin Cardiology consulted - recommended outpatient stress test Seizure disorder; recent diagnosis Recent ER visit 08/25 for reported seizure activity. no prior hx of seizures. was told to follow up with Dr. Jeffers, Neuro as outpatient at the time confirm home meds, restart as appropriate IDDM2 accu-cheks, SSI confirm home insulin regimen continue semglee 10u BID; titrate as needed Hyppertension Hyperlipidemia confirm home meds, restart as appropriate continue metoprolol, statin, nifedipine, losartan PRN hydralazine VTE: heparin sq Code: Full Dispo: Home, anticipate Wednesday pending repeat blood cultures without growth, nephro recs Time Spent Managing Pts Care (In Minutes): 45
[2024-09-10 07:48] LABS: Anion Gap 13.8 mEq/L (5.0-15.0); Magnesium 2.6 mg/dL (1.6-2.4); Phosphorus 5.6 mg/dL (2.5-4.9); Potassium 4.8 mEq/L (3.5-5.1)
[2024-09-10] MEDS: FUROSEMIDE 40 MG TABLET PO SCH (08:38)
--- NOTE | 2024-09-10 09:42 | P.PN ---
Date of Service: 09/10/24 Subjective: breathing comfortably on room air denies any worsening issues lower extremity edema improved afebrile ROS: 10 point ROS as noted above, otherwise negative Physical Exam: GEN: Alert, NAD CV: Regular rate and rhythm, trace bilateral pedal edema, R>L Pulm: non-labored respirations on RA, clear ABD: soft, nontender, nondistended Neuro: Normal speech, normal affect Problem List: Acute hypoxic respiratory failure secondary to hypervolemia Hyperkalemia Pseudohyponatremia ESRD on HD MWF Staph CoNS Bacteremia, Suspect contaminant Recent Right foot Osteomyelitis s/p I&D (07/19) and s/p 6wk antibiotic Hemoptysis, post-tussive NSTEMI, likely demand ischemia Seizure disorder; recent diagnosis IDDM2 Hyppertension Hyperlipidemia Acute hypoxic respiratory failure secondary to hypervolemia Hyperkalemia Pseudohyponatremia ESRD on HD MWF on admission, presents with shortness of breath, subjective fevers, fatigue for 3 days. +Intermittent Hemopysis. Fluid overload possibly related to recently missed Dialysis. Reportedly hypoxic 64% on RA in ED. Worsened with laying flat. CXR (09/04): findings suggestive of pulm edema or ARDS. +suspected small right effusion. Placed on non-rebreather and admitted to ICU. Off oxygen since 09/07 Nephrology, Pulm consulted s/p IV lasix; deescalated to home dose lasix 09/10 PRN albuterol Staph CoNS Bacteremia, Suspect contaminant Recent Right foot Osteomyelitis s/p I&D (07/19) suspect possible contaminated specimen. There was some concern for possible superimposed pneumonia. Recently treated for osteomyeltis. Wound cultures previously grew E. coli and Strep 07/19/24. Blood cx without growth at the time. s/p 6 weeks of fortaz. (completed 09/01/24) Last saw Dr. Deshpande ~2 weeks ago. Missed f/u appointment this week d/t hospitalization. (09/07) continue local wound care. CRP improving. Leukocytosis resolved 09/06. Blood cx (09/04): 1/4 bottles with Staph CoNS; suspect contaminant Day 7 of IV cefepime (09/05-09/10); dc after todays dose. s/p daptomycin (09/06-09/09) repeat blood cultures (09/08): NGTD ID is following Hemoptysis , post-tussive per ER notes, reports intermittently spitting up blood No further episodes NSTEMI, likely demand ischemia no chest pain suspect demand ischemia in setting of ESRD/Hypertensive urgency continue metoprolol, statin Cardiology consulted - recommended outpatient stress test Seizure disorder; recent diagnosis Recent ER visit 08/25 for reported seizure activity. no prior hx of seizures. was told to follow up with Dr. Jeffers, Neuro as outpatient at the time confirm home meds, restart as appropriate IDDM2 accu-cheks, SSI confirm home insulin regimen continue semglee 10u BID; titrate as needed Hyppertension Hyperlipidemia confirm home meds, restart as appropriate continue metoprolol, statin, nifedipine, losartan PRN hydralazine VTE: heparin sq Code: Full Dispo: Home, anticipate dc Tuesday 09/11 after HD pending repeat blood cultures without growth, nephro recs Time Spent Managing Pts Care (In Minutes): 45
[2024-09-11 05:07] LABS: Absolute Basophils 0.1 K/uL (0-0.5); Absolute Eosinophils 0.4 K/uL (0-0.5); Absolute Monocytes 0.9 K/uL (0.1-1.3); Absolute Neutrophil 3.7 K/uL (1.8-8.0); Basophils % 1.1 % (0-1.3); Eosinophils % 5.8 % (0-4.4); Hematocrit 29.2 % (39.6-49.0); Hemoglobin 9.2 g/dL (13.6-17.9); Lymphocytes % 28.2 % (15.3-44.8); MCH 26.9 pg (27.0-35.0); MCHC 31.5 g/dL (32.0-36.0); MCV 85.7 fL (80-100); MPV 7.4 fL (7.6-11.3); Monocytes % 12.9 % (3.3-12.3); Nucleated Red Blood Cells % 0.1 % (0-0); Platelets 364 thou/uL (152-406); RBC Red Blood Cell Count 3.41 M/uL (4.33-5.43); Red Cell Distribution Width 16.1 % (12.1-15.2)
[2024-09-11 05:34] VITALS: BMI 29.5
[2024-09-11 05:44] LABS: Albumin 2.4 g/dL (3.4-5.0); Anion Gap 12.9 mEq/L (5.0-15.0); Magnesium 2.6 mg/dL (1.6-2.4); Phosphorus 6.8 mg/dL (2.5-4.9); Potassium 4.9 mEq/L (3.5-5.1)
[2024-09-11 09:12] VITALS: O2SAT 95
--- NOTE | 2024-09-11 14:04 | P.PN ---
Nephrology Pt seen prior to HD, no acute complaints, denies dyspnea, QUESADA, CP or other Vitals, medications, blood work and imaging reviewed in the chart NAD. Rt IJ CVC Normal Respiratory Effort. Non tachpnec RRR. ND Abd. PD catheter present. Rt LE edema improved. Rt foot extensively wrapped AAO. Normal speech. ESRD -HD today per OP regimen, metab profile stable, see orders for details -As OP need to f/u with PD program to transition to [facility]CP[facility] so CVC can come out HTN with CKD -Continue meds, f/u post HD BP DM I with CKD, Polyneuropathy, Retinopathy and Right Charcot Foot with ulcer with concern for osteomyelitis this fall -Rt lateral food wound s/p debridment s/p 4-6 weeks of Abx Possible gram positive bacteremia on g/s 09/23 bottle -Likely contaminant, repeat culture neg, should not require IV Abx on discharge Anemia in CKD -Acceptable H/H currently
[2024-09-11 17:23] VITALS: BP 148/81; TEMP 97.2
--- NOTE | 2024-09-11 18:23 | PN ---
Subjective: The patient denies any headache, nausea, vomiting, chest pain, abdominal pain, constipat ion, or diarrhea. Objective: Vital Signs: Temperature 98, pulse 65, respirations 12, blood pressure 132/72. Lungs: Basal crackles. Heart: S1, S2. Regular. Abdomen: Soft, nontender. Bowel sounds present. Extremities: No edema. Patient doing well without antibiotic. Assessment And Plan: Blood cultures with no growth. I agree with current plan of monitoring patient without any antibiotic. We will follow the patient closely. Monitor signs of infections with WBC a nd fever trends. NF/MODL Voice ID: [id number] Report ID: [id number]
== END 2024-09-11 18:17 | disposition home or self-care (01) | DRG 640 ==
LOC: ER 20:24 → ERHOLD 09-05 00:32 → 3RD-ICU 09-05 01:21 → 2ND 09-08 05:31
PROVIDERS: ADMIT Family Medicine; ATTEND Hospitalist
PROC: 4A033R1 Measurement of Arterial Saturation, Peripheral, Percutaneous Approach (ICD-10-PCS; principal; 2024-09-05)
PROC: 5A09557 Assistance with Respiratory Ventilation, Greater than 96 Consecutive Hours, Continuous Positive Airway Pressure (ICD-10-PCS; 2024-09-05)
PROC: 5A0955A Assistance with Respiratory Ventilation, Greater than 96 Consecutive Hours, High Flow/Velocity Cannula (ICD-10-PCS; 2024-09-05)
PROC: 5A1D70Z Performance of Urinary Filtration, Intermittent, Less than 6 Hours Per Day (ICD-10-PCS; 2024-09-05)
DX: E87.5 Hyperkalemia (principal); I21.A1 Myocardial infarction type 2; J81.0 Acute pulmonary edema; J96.01 Acute respiratory failure with hypoxia; N18.6 End stage renal disease; I12.0 Hypertensive chronic kidney disease with stage 5 chronic kidney disease or end stage renal disease; R04.2 Hemoptysis; N25.81 Secondary hyperparathyroidism of renal origin; R78.81 Bacteremia; E87.70 Fluid overload, unspecified; E11.22 Type 2 diabetes mellitus with diabetic chronic kidney disease; E11.42 Type 2 diabetes mellitus with diabetic polyneuropathy; E11.65 Type 2 diabetes mellitus with hyperglycemia; E11.319 Type 2 diabetes mellitus with unspecified diabetic retinopathy without macular edema; E11.621 Type 2 diabetes mellitus with foot ulcer; L97.519 Non-pressure chronic ulcer of other part of right foot with unspecified severity; D63.1 Anemia in chronic kidney disease; E87.20 Acidosis, unspecified; I16.0 Hypertensive urgency; E78.5 Hyperlipidemia, unspecified; G40.909 Epilepsy, unspecified, not intractable, without status epilepticus; B96.89 Other specified bacterial agents as the cause of diseases classified elsewhere; Z99.2 Dependence on renal dialysis; Z79.4 Long term (current) use of insulin; Z88.2 Allergy status to sulfonamides; Z88.1 Allergy status to other antibiotic agents; Z79.899 Other long term (current) drug therapy; Z91.158 Patient's noncompliance with renal dialysis for other reason
CPT/HCPCS: 36415; 36600; 71045; 80048; 80053; 80069; 80076; 81001; 82805; 82947; 83605; 83735; 83880; 84100; 84484; 85025; 85610; 86140; 87040; 87205; 87804; 87811; 90935; 93005; 94660; 99285; J0360; J0692; J0696; J0878; J1644; J1940; J2270; J2405; J2470; J2765; J7030; J7050

== ENCOUNTER 2024-10-22 20:15 | Inpatient (IN) | payer OTHER ==
--- OUTSIDE RECORDS SUMMARY | 2024-10-22 20:19 | XMS REPORT | Continuity of Care Document ---
Author Name Unknown Address [address] [place] [address] [facility] Address 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 [id number] Dennis Schmidt
[2024-10-22] MEDS ORDERED: LEVETIRACETAM 500 MG/5 ML VIAL IV ONE (20:54)
[2024-10-22] MEDS ORDERED: D5 0.9 NS 1,000 ML IV ONE (20:56)
[2024-10-22] MEDS ORDERED: D50W 25 GM/50 ML SYRINGE IV ONE ×2 (20:56→22:13)
[2024-10-22] MEDS ORDERED: NA CHLORIDE 0.9% 100 ML ONE (21:10)
[2024-10-22 21:38] LABS: Absolute Basophils 0.1 K/uL (0-0.5); Absolute Eosinophils 0.4 K/uL (0-0.5); Absolute Lymphocytes (CBC) 1.3 K/uL (0.7-4.9); Absolute Monocytes 0.9 K/uL (0.1-1.3); Absolute Neutrophil 4.5 K/uL (1.8-8.0); Basophils % 0.9 % (0-1.3); Eosinophils % 5.8 % (0-4.4); Hematocrit 33.9 % (39.6-49.0); Hemoglobin 10.8 g/dL (13.6-17.9); Lymphocytes % 18.5 % (15.3-44.8); MCH 27.9 pg (27.0-35.0); MCHC 31.8 g/dL (32.0-36.0); MCV 87.7 fL (80-100); MPV 7.7 fL (7.6-11.3); Monocytes % 12.1 % (3.3-12.3); Neutrophils % 62.7 % (41.7-73.7); Nucleated Red Blood Cells % 0.3 % (0-0); Platelets 265 thou/uL (152-406); RBC Red Blood Cell Count 3.87 M/uL (4.33-5.43); Red Cell Distribution Width 17.1 % (12.1-15.2)
[2024-10-22 21:43] LABS: PT Prothrombin Time 12.4 SECONDS (9.4-12.5); Protime INR 1.18
--- NOTE | 2024-10-22 21:54 | RAD REPORT ---
EXAM: Chest Single View HISTORY: seizure COMPARISON: 09/06/2024 FINDINGS: LUNGS/PLEURA: The lungs are clear. No pleural effusions or pneumothorax. No pulmonary edema. Aeration is improved from prior. MEDIASTINUM: The mediastinal silhouette is within normal limits. CARDIAC: Mild cardiomegaly UPPER ABDOMEN: No significant abnormality. BONES: No acute abnormality. LINES/TUBES/OTHER: Right IJ approach Vas-Cath catheter with tip overlying the superior cavoatrial venancio ction. IMPRESSION: No evidence of acute cardiopulmonary disease.
[2024-10-22 22:00] LABS: ALT/SGPT 46 U/L (16-61); AST/SGOT 28 U/L (15-37); Albumin 3.3 g/dL (3.4-5.0); Albumin/Globulin Ratio 0.7 (1.1-1.8); Alkaline Phosphatase 144 U/L (45-117); BUN Blood Urea Nitrogen 69 mg/dL (7-18); Bicarbonate 23 mEq/L (21-32); Bilirubin Total 0.3 mg/dL (0.2-1.0); Globulin 4.9 g/dL (2.3-3.5); Glomerular Filtration Rate 6 ml/min (=/>90); Glucose Level 114 mg/dL (74-106); Magnesium 2.6 mg/dL (1.6-2.4); NT PRO-BNP 4263 pg/mL (<125); Protein, Total 8.2 g/dL (6.4-8.2); Sodium Level 139 mEq/L (136-145); Troponin High Sensitivity 15.1 pg/mL (<58.9)
[2024-10-22 22:01] LABS: Bilirubin Direct < 0.2 mg/dL (0-0.2); Bilirubin Indirect, Calculated 0.1 mg/dL (0.2-0.8)
[2024-10-22] MEDS ORDERED: METOCLOPRAMIDE 10 MG/2mL INJ ONE (22:02)
[2024-10-22] MEDS ORDERED: HYDROCODONE/APAP 5/325 MG TAB ONE ×2 (22:03→22:53)
--- NOTE | 2024-10-22 22:06 | RAD REPORT ---
EXAMINATION: CT HEAD WITHOUT CONTRAST CLINICAL INDICATION: Male, 34 years old.seizure and headache TECHNIQUE: Axial CT images from the skull base to the vertex without intravenous contrast. Coronal an d sagittal reformatted images were created from the data set. One or more of the following dose reduction techniques were used: Automated exposure control, adjustment of the mA and/or kV according to patient size, and/or iterative reconstruction. Unless otherwise specified, incidental findings do not require dedicated imaging follow-up. [id number]. COMPARISON: No prior exam. FINDINGS: INTRACRANIAL: No acute intracranial hemorrhage. No hydrocephalus. No mass effect or midline shift. No significant white matter disease. VASCULATURE: No visualized abnormalities in the arteries or dural venous sinuses. SCALP/SKULL: No significant soft tissue or osseous abnormalities. SINUSES: The visualized paranasal sinuses and mastoid air cells are predominantly clear. IMPRESSION: No acute intracranial abnormality.
[2024-10-22] MEDS ORDERED: ACETAMINOPHEN 500 MG TAB PO PRN (22:46)
[2024-10-22] MEDS ORDERED: DIPHENOX/ATROP SULF 1 TAB PO ONE (22:53)
[2024-10-22] MEDS ORDERED: DEXTROSE 10%-WATER 500 ML IV ONE (22:56)
--- NOTE | 2024-10-22 23:01 | P.HP ---
Certification for Inpatient Patient admitted to: Inpatient With expected LOS: >2 Midnights Practitioner: I am a practitioner with admitting privileges, knowledge of patient current condition, hospital course, and medical plan of care. Services: Services provided to patient in accordance with Admission requirements found in Title 42 Section 412.3 of the Code of Federal Regulations Patient History Date of Service: 10/22/24 Reason for admission: hypoglycemic seizure History of Present Illness: Patient is a 34 year old male with a PMH of HTN, Type II diabtes mellitus and ESRD. He follows with Dr Oneal. Patient is brought in via EMS after a witnessed seizure. He was reportedly hypoglycemic on site with BG in the 30's. He has a history of type 2 diabetes mellitus and hypoglycemia-related seizures. Patient states that he administered himself 2 units of regular insulin, Humulin R. His blood glucose was 148 at the time. He seized. EMS was called. His blood glucose was in the 30s. He received D50 en route to the ER. His blood glucose dropped again to 32 upon arrival. He is now on D5 1/2 NS but barely keeping BG >95. IV fluid changed to D10 infusion. Other than hypoglycemia, the rest of his work up is unremarkable. CXR and CT head were negative as well. Patient has a history of ESRD on hemodialysis Wednesday. He is due to have dialysis tomorrow. During my evaluation, patient was drowsy but arousable. He states that his been having diarrhea for the past few days. No much change in his appetite. Allergies aspirin Adverse Reaction (Verified 06/03/24 21:06) Hives/Rash Sulfa (Sulfonamide Antibiotics) Adverse Reaction (Verified 06/03/24 21:07) Hives/Rash sulfamethoxazole [From Bactrim] Adverse Reaction (Verified 06/03/24 21:07) Hives/Rash trimethoprim [From Bactrim] Adverse Reaction (Verified 06/03/24 21:07) Hives/Rash vancomycin Adverse Reaction (Verified 06/03/24 21:07) Hives/Rash Home Medications: Atorvastatin Calcium 40 mg PO BEDTIME 06/03/24 Buproprion S.r. [Wellbutrin Sr*] 150 mg PO DAILY 06/03/24 Insulin Aspart [Novolog Flexpen] See Protocol SQ ACHS 06/03/24 Metoprolol Succinate 1 tab PO DAILY 06/03/24 NIFEdipine [Nifedipine ER] 60 mg PO BID 06/03/24 cloNIDine HCL [Clonidine HCl] 0.1 mg PO TID 06/03/24 Ferrous Sulfate 325 mg PO DAILY 30 Days #30 tab 06/10/24 Losartan Potassium [Cozaar*] 50 mg PO BID 30 Days #60 tab 06/10/24 Quetiapine Fumarate [Seroquel] 50 mg PO BEDTIME 30 Days #30 tab 06/10/24 Calcium Acetate 667 mg PO TID 07/18/24 Hydralazine [Apresoline*] 100 mg PO TID 07/18/24 Furosemide 40 mg PO DAILY 09/05/24 Furosemide [Lasix*] 20 mg PO BEDTIME 09/05/24 Insulin Detemir [Levemir] 10 units SQ BID 09/05/24 Insulin Regular, Human [Humulin R U-500 Kwikpen] 10 unit SQ TID 09/05/24 - Past Medical/Surgical History Diabetic: Yes -: HTN -: DM I with CKD, Polyneuropathy & Retinopathy -: ESRD on HD (Dr. Oneal/ [facility]) -: Anemia -: Incision right foot - Family History Father -: Heart disease, Diabetes, Stroke, Kidney disease Notes: DM. CHF Mother -: Diabetes, Kidney disease Notes: Dementia showing early on set - Social History Alcohol use: No CD- Drugs: No Caffeine use: Yes Physical Examination - Physical Exam General: Other (Somnolent) HEENT: Atraumatic, Normocephalic Cardiovascular: No edema, Normal pulses, Regular rate/rhythm, Normal S1 S2, Other (Right IJ hemodialysis catheter) Neurological: Other (Lethargic) - Studies Laboratory Data (last 24 hrs) 10/22/24 10/22/24 10/22/24 21:25 21:25 21:25 WBC 7.20 Hgb 10.8 L Hct 33.9 L Plt Count 265 PT 12.4 INR 1.18 Sodium 139 Potassium 5.0 BUN 69 H Creatinine 11.40 H Glucose 114 H Magnesium 2.6 H Total Bilirubin 0.3 AST 28 ALT 46 Alkaline Phosphatase 144 H Assessment and Plan - Problems (Diagnosis) (1) Hypoglycemia Current Visit: Yes Status: Acute (2) ESRD (end stage renal disease) on dialysis Current Visit: No Status: Acute (3) Hypertension Current Visit: No Status: Acute (4) Type 2 diabetes mellitus Current Visit: No Status: Acute - Plan Assessment Patient is a 34 year old male with ESRD ON HD and recurrent hypoglycemia complicated by seizures. He is being admitted following another episode of hypoglycemia-related seizures. His BG was 30 on site. He received D50 en route to the ER. Barely able to maintained BG > 100 with dextrose infusion. Acute seizure Hypoglycemia Acute diarrhea Type II diabetes mellitus ESRD on HD HTN PLAN: Will admit inpatient with telemetry Change IV fluid to D10 infusion BG check q hourly Will monitoring on dextrose infusion for the next 24 hours. If able to maintain BG, can monitor an additional day w/o Dextrose Nephrology consulted for hemodialysis Check for stool cultures including C. difficile Heparin subc for DVT ppx Resume rest of home medications after reconciliation - Advance Directives Does patient have a Living Will: No Does patient have a Durable POA for Healthcare: No
--- NOTE | 2024-10-23 00:34 | EDPHYS ---
Physician Documentation [facility] Name: Tan Marlow Age: 34 yrs Sex: Male : 1990 Arrival Date: 10/22/2024 Time: 20:15 Bed DIS16 Private MD: ED Physician Zhou Isbell HPI: 10/22 20:41 This 34 yrs old Black Male presents to ER via Unassigned with complaints of seizure. sp4 10/23 02:05 Patient is a very pleasant 34-year-old male past medical history of renal and sp4 peritoneal dialysis end-stage renal disease diabetes dialysis Wednesday, right foot diabetic foot ulcer. Patient presents with acute hypoglycemic episode blood sugar 32 at home. EMS administered D50 after which blood sugar was 89. Patient states he injected his regular Humulin R at home and thinks that he did not properly eat. Patient developed convulsive episode at home secondary to hypoglycemia. This is not his first time in the past patient has experienced hypoglycemic episodes with associated convulsions. . Past medical history positive for history of recent hypoxic respiratory failure with admission on 09/05/[address] Oneal. Also history of hyperkalemia, she denies uremia, Staphylococcus bacteremia, right foot osteomyelitis, hemoptysis, NSTEMI, seizure disorder, hypertension and hyperlipidemia. Medication list includes atorvastatin 40 mg bedtime, Wellbutrin SR 150 daily, insulin aspart with meals, metoprolol succinate daily, nifedipine 60 mg twice daily, clonidine 0.1 mg 3 times daily, ferrous sulfate 325 daily, losartan potassium 50 mg twice daily, Seroquel 50 mg bedtime, calcium acetate 6 six 7 mg 3 times daily hydralazine 100 mg 3 times daily, furosemide 40 mg daily, Levemir 10 units twice daily, Humulin R 10 units subcutaneous 3 times daily. Historical: - Allergies: 10/22 22:43 Aspirin; ay 22:43 Bactrim; ay 22:43 Sulfa (Sulfonamide Antibiotics); ay 22:43 Vancomycin; ay - Home Meds: 22:43 atorvastatin 40 mg Oral tablet 1 tab daily [Active]; bupropion HCl 150 mg Oral tablet 1 ay tab daily [Active]; clonidine HCl 0.1 mg Oral tablet 1 tab 3 times per day [Active]; hydralazine 100 mg Oral tablet 1 tab 3 times per day [Active]; Lantus U-100 Insulin 100 unit/mL Sub-Q solution 10 units 2 times per day [Active]; Lasix 40 mg Oral tablet 1 tab every morning [Active]; metoprolol succinate 100 mg Oral Tablet 2 tabs daily [Active]; Nifedipine ER Oral 60 mg twice a day [Active]; Novolog FlexPen U-100 Insulin 100 unit/mL (3 mL) subcutaneous Insulin Pen [Active]; Seroquel 50 mg Oral tablet [Active]; - PMHx: 22:43 diabetes mellitus; Hypertensive disorder; kidney disease; MWF Dialysis (kidney ay disease); Seizure; - PSHx: 22:43 right foot; ay - Immunization history:: Adult Immunizations not up to date. - Infectious Disease History:: Denies. - Social history:: Smoking status: Patient denies any tobacco usage or history of. - Family history:: not pertinent. ROS: 10/23 02:05 Constitutional: Negative for fever, chills, and weight loss, positive for sp4 hypoglycemia and convulsions All other systems are negative, Exam: 02:05 Constitutional: This is a well developed, well nourished patient who is awake, sp4 Chronically ill appearing male. Right chest wall tunneled dialysis catheter, also left lower abdominal quadrant peritoneal dialysis catheter. Bandage to right foot secondary to chronic right foot diabetic foot ulcer Head/Face: Normocephalic, atraumatic. Eyes: Pupils equal round and reactive to light, extra-ocular motions intact. Lids and lashes normal. Conjunctiva and sclera are not injected. Cornea within normal limits. Periorbital areas with no swelling, redness, or edema. ENT: Nares patent. No nasal discharge, no septal abnormalities noted. Tympanic membranes are normal and external auditory canals are clear. Oropharynx with no redness, swelling, or masses, exudates, or evidence of obstruction, uvula midline. Mucous membranes moist. Neck: Trachea midline, no thyromegaly or masses palpated, and no cervical lymphadenopathy. Supple, full range of motion without nuchal rigidity, or vertebral point tenderness. Chest/axilla: Normal chest wall appearance and motion. Nontender with no deformity. No lesions are appreciated. Cardiovascular: Regular rate and rhythm with a normal S1 and S2. No gallops, murmurs, or rubs. Normal PMI, no JVD. No pulse deficits. Respiratory: Lungs have equal breath sounds bilaterally, clear to auscultation and percussion. No rales, rhonchi or wheezes noted. No increased work of breathing, no retractions or nasal flaring. Abdomen/GI: Soft, with normal bowel sounds. No distension or tympany. No guarding or rebound. No evidence of tenderness throughout. Back: No spinal tenderness. No costovertebral tenderness. Skin: Warm, dry with normal turgor. Normal color with no rashes, no lesions, and no evidence of cellulitis. MS/ Extremity: Pulses equal, no cyanosis. Neurovascular intact. Full, normal range of motion. Neuro: Awake and alert, GCS 15, oriented to person, place, time, and situation. Cranial nerves II-XII grossly intact. Motor strength 5/5 in all extremities. Sensory grossly intact. Psych: Awake, alert, with orientation to person, place and time. Behavior, mood, and affect are within normal limits 02: ECG was reviewed by the Attending Physician. EKG at 2051 sinus rhythm first-degree AV block rate 70, left axis deviation, hyperacute T waves V1 V2 and V3 this is similar to prior EKG on 09/04/2024. No sign of ST elevated TN. Vital Signs: 10/22 20:23 BP 149 / 91; Pulse 69; Resp 20; Pulse Ox 99% on R/A; ay 21:00 BP 163 / 95; Pulse 75; Resp 20; Pulse Ox 100% on R/A; ay 22:19 BP 151 / 89; Pulse 75; Resp 17; Pulse Ox 100% ; ay 23:04 BP 146 / 80; Pulse 77; Resp 16; Pulse Ox 99% on R/A; ay 10/23 00:30 BP 146 / 82; Pulse 74; Resp 16; Pulse Ox 99% on R/A; ay 02:20 BP 186 / 80; Pulse 62; Resp 16; Pulse Ox 97% ; ay NIH Stroke Scale Scores: 02:05 NIHSS Score: 0 sp4 Nikko Coma Score: 10/22 20:23 Eye Response: spontaneous(4). Motor Response: obeys commands(6). Verbal Response: ay oriented(5). Total: 15. 10/23 02:05 Eye Response: spontaneous(4). Motor Response: obeys commands(6). Verbal Response: sp4 oriented(5). Total: 15. MDM: 10/22 21:43 Medical Screening Exam initiated sp4 22:29 ED course: EXAM: Chest Single View HISTORY: seizure COMPARISON: 09/06/2024 FINDINGS: sp4 LUNGS/PLEURA: The lungs are clear. No pleural effusions or pneumothorax. No pulmonary edema. Aeration is improved from prior. MEDIASTINUM: The mediastinal silhouette is within normal limits. CARDIAC: Mild cardiomegaly UPPER ABDOMEN: No significant abnormality. BONES: No acute abnormality. LINES/TUBES/OTHER: Right IJ approach Vas-Cath catheter with tip overlying the superior cavoatrial junction. IMPRESSION: No evidence of acute cardiopulmonary disease. . ED course: EXAMINATION: CT HEAD WITHOUT CONTRAST CLINICAL INDICATION: Male, 34 years old.seizure and headache TECHNIQUE: Axial CT images from the skull base to the vertex without intravenous contrast. Coronal and sagittal reformatted images were created from the data set. One or more of the following dose reduction techniques were used: Automated exposure control, adjustment of the mA and/or kV according to patient size, and/or iterative reconstruction. Unless otherwise specified, incidental findings do not require dedicated imaging follow-up. [id number]. COMPARISON: No prior exam. FINDINGS: INTRACRANIAL: No acute intracranial hemorrhage. No hydrocephalus. No mass effect or midline shift. No significant white matter disease. VASCULATURE: No visualized abnormalities in the arteries or dural venous sinuses. SCALP/SKULL: No significant soft tissue or osseous abnormalities. SINUSES: The visualized paranasal sinuses and mastoid air cells are predominantly clear. IMPRESSION: No acute intracranial abnormality. . 10/23 01:28 ED course: EXAMINATION: CT HEAD WITHOUT CONTRAST CLINICAL INDICATION: Male, 34 years sp4 old.seizure and headache TECHNIQUE: Axial CT images from the skull base to the vertex without intravenous contrast. Coronal and sagittal reformatted images were created from the data set. One or more of the following dose reduction techniques were used: Automated exposure control, adjustment of the mA and/or kV according to patient size, and/or iterative reconstruction. Unless otherwise specified, incidental findings do not require dedicated imaging follow-up. COMPARISON: No prior exam. FINDINGS: INTRACRANIAL: No acute intracranial hemorrhage. No hydrocephalus. No mass effect or midline shift. No significant white matter disease. VASCULATURE: No visualized abnormalities in the arteries or dural venous sinuses. SCALP/SKULL: No significant soft tissue or osseous abnormalities. SINUSES: The visualized paranasal sinuses and mastoid air cells are predominantly clear. IMPRESSION: No acute intracranial abnormality. . 02:22 Differential diagnosis: cerebral vascular accident, cardiac arrhythmia, seizure, TIA. sp4 Data reviewed: vital signs, nurses notes, EMS record, old medical records, lab test result(s), EKG, radiologic studies, CT scan, plain films. Consideration of Admission/Observation Patient was admitted/placed on observation. Escalation of care including admission/observation considered. Management of patient was discussed with the following: Hospitalist: Randy RIDLEY . 10/22 20:45 Order name: Basic Metabolic Panel; Complete Time: 22:25 sp4 10/22 20:45 Order name: CBC with Diff; Complete Time: 22:25 sp4 10/22 20:45 Order name: LFT's; Complete Time: :25 sp4 10/22 20:45 Order name: Magnesium; Complete Time: 22:25 sp4 10/22 20:45 Order name: NT PRO-BNP; Complete Time: 22:25 sp4 10/22 20:45 Order name: PT-INR; Complete Time: 22:25 sp4 10/22 20:45 Order name: Troponin HS; Complete Time: 22:25 sp4 10/22 21:03 Order name: Glucose, Ancillary Testing; Complete Time: 21:06 EDMS 10/22 21:41 Order name: Glucose, Ancillary Testing; Complete Time: 22:25 EDMS 10/22 22:17 Order name: Glucose, Ancillary Testing; Complete Time: 22:25 EDMS 10/22 22:50 Order name: Lactate w/ 2H reflex if indic.; Complete Time: 06:05 EDMS 10/22 22:50 Order name: Magnesium; Complete Time: 06:05 EDMS 10/22 22:50 Order name: Phosphorus; Complete Time: 06:05 EDMS 10/22 22:50 Order name: Urinalysis w/ reflexes EDMS 10/22 22:50 Order name: Basic Metabolic Panel EDMS 10/22 22:50 Order name: Basic Metabolic Panel; Complete Time: 06:05 EDMS 10/22 22:50 Order name: CBC with Automated Diff EDMS 10/22 22:50 Order name: CBC with Automated Diff; Complete Time: 06:05 EDMS 10/23 00:38 Order name: Glucose, Ancillary Testing; Complete Time: 01:27 EDMS 10/23 01:53 Order name: Glucose, Ancillary Testing; Complete Time: 06:05 EDMS 10/23 02:39 Order name: Glucose, Ancillary Testing; Complete Time: 06:05 EDMS 10/23 06:20 Order name: Glucose, Ancillary Testing EDMS 10/23 08:53 Order name: Basic Metabolic Panel EDMS 10/23 09:03 Order name: Glucose, Ancillary Testing EDMS 10/23 12:05 Order name: Glucose, Ancillary Testing EDMS 10/22 20:45 Order name: XRAY Chest (1 view); Complete Time: 22:25 sp4 10/22 21:07 Order name: CT Head Brain wo Cont; Complete Time: 22:25 sp4 10/22 20:45 Order name: Cardiac monitoring; Complete Time: 21: sp4 10/22 20:45 Order name: EKG - Nurse/Tech; Complete Time: 21: sp4 10/22 20:45 Order name: IV Saline Lock; Complete Time: 22:37 sp4 10/22 20:45 Order name: Labs collected and sent; Complete Time: 22:37 sp4 10/22 20:45 Order name: O2 Per Protocol; Complete Time: 21: sp4 10/22 20:45 Order name: O2 Sat Monitoring; Complete Time: 21:07 sp4 10/22 20:45 Order name: Accucheck Blood Glucose; Complete Time: 21: sp4 EC/02 20:52 Rate is 70 beats/min. Rhythm is regular, Sinus Rhythm. Left axis deviation noted. MO sp4 interval is prolonged. QRS interval is normal. QT interval is normal. T waves are Peaked in leads V1, V2, V3. No ST changes noted. Clinical impression: No evidence of ischemia. Interpreted by me. Reviewed by me. Administered Medications: 21:00 Drug: D50W IVP 50 ml IVP once; (1 amp) Route: IVP; Site: right antecubital; jb4 10/23 01:02 Follow up: Response: No adverse reaction ay 10/22 21:23 Drug: D5-NS IV 1000 ml IV at 125 ml/hr continuous Route: IV; Rate: 125 ml/hr; Site: ay right antecubital; 10/23 03:09 Follow up: Response: No adverse reaction; IV Status: Order to discontinue infusion; IV ay Intake: 250ml 10/22 21:38 Drug: Keppra IV 1000 mg IV at calculated rate once Route: IV; Rate: calculated rate; ay Site: right antecubital; 10/23 01:02 Follow up: Response: No adverse reaction ay 03:07 Follow up: Response: No adverse reaction; IV Status: Completed infusion; IV Intake: ay 100ml 10/22 22:11 Drug: HYDROcodone-acetaminophen PO 5 mg-325 mg 2 tabs PO once Route: PO; ay 10/23 01:02 Follow up: Response: No adverse reaction ay 10/22 22:11 Drug: metoCLOPramide IVP 10 mg IVP once; over 1 to 2 minutes Route: IVP; Site: right ay antecubital; 10/23 01:01 Follow up: Response: No adverse reaction ay 10/22 22:29 Drug: D50W IVP 50 ml IVP once; (1 amp) Route: IVP; Site: right antecubital; ay 10/23 01:02 Follow up: Response: No adverse reaction ay 10/22 23:31 Drug: D10 in Water IVP 1000 ml IVP continuous; 100 ml / hour Route: IVP; Site: right ay antecubital; 10/23 01:01 Follow up: Response: No adverse reaction ay 10/22 23:31 Drug: Diphenoxylate-Atropine PO 2 tabs PO once Route: PO; ay 10/23 01:01 Follow up: Response: No adverse reaction ay 10/22 23:31 Drug: HYDROcodone-acetaminophen PO 5 mg-325 mg 1 tabs PO once Route: PO; ay 10/23 01:01 Follow up: Response: No adverse reaction ay Disposition Summary: 10/23/24 00:33 Hospitalization Ordered Notes: Hospitalization Status: Inpatient Admission sp4 Provider: Prince barbra Padilla Condition: Stable sp4 Problem: new sp4 Symptoms: have improved sp4 Bed/Room Type: Standard sp4 Location: Telemetry/MedSurg (Inpatient)(10/23/24 14:56) bd Room Assignment: 225(10/23/24 14:56) bd Diagnosis - Hypoglycemia secondary to Insulin, Acute convulsive episode secondary to sp4 hypoglycemia , ESRD on Dialysis Forms: - Medication Reconciliation Form sp4 - SBAR form sp4 - Leadership Thank You Letter sp4 Critical care time excluding procedures: :22 Critical care time: Bedside Care: 36 minutes, Consultation: 12 minutes, Family sp4 Intervention: 12 minutes. Total time: 60 minutes NIH Stroke Scale - NIH Stroke Score Date: 10/23/2024 Time: 02:05 Total Score = 0 10. Dysarthria (speech clarity - read or repeat words) - 0(Normal) 11. Extinction and Inattention (visual/tactile/auditory/spatial/personal) - 0(No abnormality) 1a. Level of Consciousness (LOC) - 0(Alert) 1b. Level of Consciousness (LOC) (Month \T\ Age) - 0(Both) 1c. LOC Commands (Open \T\ Closes Eyes/Effervescent Salts Compounder) - 0(Both) 2. Best Gaze (Lateral Gaze Paresis) - 0(Normal) 3. Visual Field Loss - 0(No visual loss) 4. Facial Palsy - 0(Normal) 5a. Left Arm: Motor (10-second hold) - 0(No drift) 5b. Right Arm: Motor (10-second hold) - 0(No drift) 6a. Left Leg: Motor (5-second hold - always test supine) - 0(No drift) 6b. Right Leg: Motor (5-second hold - always test supine) - 0(No drift) 7. Limb Ataxia (finger/nose \T\ heel/park - test with eyes open) - 0(Absent) 8. Sensory Loss (pinprick arms/legs/face) - 0(Normal) 9. Best Language: Aphasia (description/naming/reading) - 0(No aphasia) Initials: sp4 Signatures: Dispatcher [employer] EDMS Carmelita Villanueva Shelby, RN RN ss Bryson, James, RN RN jb4 Potepalov, Sergey, MD MD sp4 Yakubu, Awudu, RN RN ay Corrections: (The following items were deleted from the chart) 10/22 20:45 20:45 BASIC METABOLIC PANEL+C.LAB.BRZ ordered. EDMS EDMS 20:45 20:45 CBC+H.LAB.BRZ ordered. EDMS EDMS 20:45 20:45 HEPATIC FUNCTION+C.LAB.BRZ ordered. EDMS EDMS 20:45 20:45 MAGNESIUM+C.LAB.BRZ ordered. EDMS EDMS 20:45 20:45 PROBNP+C.LAB.BRZ ordered. EDMS EDMS 20:45 20:45 PROTIME (+INR)+COAG.LAB.BRZ ordered. EDMS EDMS 20:45 20:45 Troponin High Sensitivity+C.LAB.BRZ ordered. EDMS EDMS 20:45 20:45 Chest Single View+RAD.RAD.BRZ ordered. EDMS EDMS 10/23 02:28 00:33 Telemetry/MedSurg (observation) sp4 ss 02:28 00:33 sp4 ss 14:56 02:28 [facility] ER HOLD ss bd 14:56 02:28 ERHOLD- ss bd
--- NOTE | 2024-10-23 00:34 | ER ---
Nurse's Notes [facility] Name: Tan Marlow Age: 34 yrs Sex: Male : 1990 Arrival Date: 10/22/2024 Time: 20:15 Bed DIS16 Private MD: Diagnosis: Hypoglycemia secondary to Insulin, Acute convulsive episode secondary to hypoglycemia , ESRD on Dialysis Presentation: 10/22 20:23 Chief complaint: EMS states: Seizure. Coronavirus screen: Client denies travel out of the [place] in the last 14 days. Ebola Screen: No symptoms or risks identified at this time. Initial Sepsis Screen: Does the patient meet any 2 criteria? No. Patient's initial sepsis screen is negative. Does the patient have a suspected source of infection? No. Patient's initial sepsis screen is negative. Risk Assessment: Do you want to hurt yourself or someone else? Patient reports no desire to harm self or others. Note BIBA with a c/o seizure 3, unresponsive with a BG of 32. 25g D50 given by EMS which increased BG to 89. Upon arrival, BG has dropped down to 32. HX of DMT1 on insulin, ESRD with HD on MWF. Pt has R subclavian HD port. Diabetes ulcer under R foot. Pt alert and oriented, denies SOB, CP and N/V. Onset of symptoms was October 22, 2024. 20:23 Method Of Arrival: EMS: [facility] ay 20:23 Acuity: LULY 3 ay Triage Assessment: 20:23 General: Appears in no apparent distress. uncomfortable, Behavior is calm, cooperative. ay Pain: Denies pain. EENT: No signs and/or symptoms were reported regarding the EENT system. Neuro: Level of Consciousness is awake, alert, obeys commands, Oriented to person, place, situation, Speech is normal. Cardiovascular: Denies chest pain, Capillary refill < 3 seconds. Respiratory: Airway is patent Respiratory effort is even, unlabored, Respiratory pattern is regular, symmetrical. GI: Abdomen is flat, Reports diarrhea, Patient currently denies pain. : No signs and/or symptoms were reported regarding the genitourinary system. Derm: Skin ulcer under right foot. Historical: - Allergies: 22:43 Aspirin; ay 22:43 Bactrim; ay 22:43 Sulfa (Sulfonamide Antibiotics); ay 22:43 Vancomycin; ay - Home Meds: 22:43 atorvastatin 40 mg Oral tablet 1 tab daily [Active]; bupropion HCl 150 mg Oral tablet 1 ay tab daily [Active]; clonidine HCl 0.1 mg Oral tablet 1 tab 3 times per day [Active]; hydralazine 100 mg Oral tablet 1 tab 3 times per day [Active]; Lantus U-100 Insulin 100 unit/mL Sub-Q solution 10 units 2 times per day [Active]; Lasix 40 mg Oral tablet 1 tab every morning [Active]; metoprolol succinate 100 mg Oral Tablet 2 tabs daily [Active]; Nifedipine ER Oral 60 mg twice a day [Active]; Novolog FlexPen U-100 Insulin 100 unit/mL (3 mL) subcutaneous Insulin Pen [Active]; Seroquel 50 mg Oral tablet [Active]; - PMHx: 22:43 diabetes mellitus; Hypertensive disorder; kidney disease; MWF Dialysis (kidney ay disease); Seizure; - PSHx: 22:43 right foot; ay - Immunization history:: Adult Immunizations not up to date. - Infectious Disease History:: Denies. - Social history:: Smoking status: Patient denies any tobacco usage or history of. - Family history:: not pertinent. Screenin:25 [facility] ED Fall Risk Assessment (Adult) History of falling in the last 3 months, ay including since admission No falls in past 3 months (0 pts) Confusion or Disorientation No (0 pts) Intoxicated or Sedated No (0 pts) Impaired Gait No (0 pts) Mobility Assist Device Used No (0 pt) Altered Elimination Yes (1 pt) Score/Fall Risk Level 0 - 2 = Low Risk Oriented to surroundings, Maintained a safe environment, Educated pt \T\ family on fall prevention, incl call for assistance when getting out of bed. Abuse screen: Denies threats or abuse. Nutritional screening: No deficits noted. Tuberculosis screening: No symptoms or risk factors identified. Assessment: 20:25 General: See Triage Assessment. ay 22:00 Reassessment: Patient appears in no apparent distress at this time. Patient is alert, ay oriented x 3, equal unlabored respirations, skin warm/dry/pink. Patient denies pain at this time. 23:00 Reassessment: Patient appears in no apparent distress at this time. No changes from ay previously documented assessment. 10/23 00:00 Reassessment: Patient appears in no apparent distress at this time. Patient is alert, ay oriented x 3, equal unlabored respirations, skin warm/dry/pink. 01:00 Reassessment: Patient appears in no apparent distress at this time. pt is diphoric ay Patient denies pain at this time. 02:00 Reassessment: Patient appears in no apparent distress at this time. pt is diaphoretic, ay BG re checked. 15:24 General: Pt is dialysis, room assigned, report faxed and Jose Luis court recorder notified of kb3 assignment. Vital Signs: 10/22 20:23 BP 149 / 91; Pulse 69; Resp 20; Pulse Ox 99% on R/A; ay 21:00 BP 163 / 95; Pulse 75; Resp 20; Pulse Ox 100% on R/A; ay 22:19 BP 151 / 89; Pulse 75; Resp 17; Pulse Ox 100% ; ay 23:04 BP 146 / 80; Pulse 77; Resp 16; Pulse Ox 99% on R/A; ay 10/23 00:30 BP 146 / 82; Pulse 74; Resp 16; Pulse Ox 99% on R/A; ay 02:20 BP 186 / 80; Pulse 62; Resp 16; Pulse Ox 97% ; ay Nikko Coma Score: 10/22 20:23 Eye Response: spontaneous(4). Motor Response: obeys commands(6). Verbal Response: ay oriented(5). Total: 15. 10/23 02:05 Eye Response: spontaneous(4). Motor Response: obeys commands(6). Verbal Response: sp4 oriented(5). Total: 15. NIH Stroke Scale Scores: 02:05 NIHSS Score: 0 sp4 ED Course: 10/22 20:23 Seizure precautions initiated. ay 20:25 No provider procedures requiring assistance completed. ay 20:25 Patient has correct armband on for positive identification. Bed in low position. Call ay light in reach. Side rails up X2. Adult w/ patient. 20:37 Patient arrived in ED. kmf 20:40 Zhou Isbell MD is Attending Physician. sp4 20:42 Isha Yousif, RN is Primary Nurse. ay 21:00 Arm band placed on right wrist. ay 21:07 EKG done, by technical sales director. af3 21:49 XRAY Chest (1 view) In Process Unspecified. EDMS 21:55 CT Head Brain wo Cont In Process Unspecified. EDMS 22:43 Triage completed. ay 10/23 00:32 Prince Padilla MD is Hospitalizing Provider. sp4 14:09 bed linens changed. ll1 Administered Medications: 10/22 21:00 Drug: D50W IVP 50 ml IVP once; (1 amp) Route: IVP; Site: right antecubital; jb4 10/23 01:02 Follow up: Response: No adverse reaction ay 10/22 21:23 Drug: D5-NS IV 1000 ml IV at 125 ml/hr continuous Route: IV; Rate: 125 ml/hr; Site: ay right antecubital; 10/23 03:09 Follow up: Response: No adverse reaction; IV Status: Order to discontinue infusion; IV ay Intake: 250ml 10/22 21:38 Drug: Keppra IV 1000 mg IV at calculated rate once Route: IV; Rate: calculated rate; ay Site: right antecubital; 10/23 01:02 Follow up: Response: No adverse reaction ay 03:07 Follow up: Response: No adverse reaction; IV Status: Completed infusion; IV Intake: ay 100ml 10/22 22:11 Drug: HYDROcodone-acetaminophen PO 5 mg-325 mg 2 tabs PO once Route: PO; ay 10/23 01:02 Follow up: Response: No adverse reaction ay 10/22 22:11 Drug: metoCLOPramide IVP 10 mg IVP once; over 1 to 2 minutes Route: IVP; Site: right ay antecubital; 10/23 01:01 Follow up: Response: No adverse reaction ay 10/22 22:29 Drug: D50W IVP 50 ml IVP once; (1 amp) Route: IVP; Site: right antecubital; ay 10/23 01:02 Follow up: Response: No adverse reaction ay 10/22 23:31 Drug: D10 in Water IVP 1000 ml IVP continuous; 100 ml / hour Route: IVP; Site: right ay antecubital; 10/23 01:01 Follow up: Response: No adverse reaction ay 10/22 23:31 Drug: Diphenoxylate-Atropine PO 2 tabs PO once Route: PO; ay 10/23 01:01 Follow up: Response: No adverse reaction ay 10/22 23:31 Drug: HYDROcodone-acetaminophen PO 5 mg-325 mg 1 tabs PO once Route: PO; ay 10/23 01:01 Follow up: Response: No adverse reaction ay Medication: 03:04 VIS not applicable for this client. ay Intake: 03:07 IV: 100ml; Total: 100ml. ay 03:09 IV: 250ml; Total: 350ml. ay Outcome: 00:33 Decision to Hospitalize by Provider. sp4 15:25 Patient left the ED. kb3 NIH Stroke Scale - NIH Stroke Score Date: 10/23/2024 Time: 02:05 Total Score = 0 10. Dysarthria (speech clarity - read or repeat words) - 0(Normal) 11. Extinction and Inattention (visual/tactile/auditory/spatial/personal) - 0(No abnormality) 1a. Level of Consciousness (LOC) - 0(Alert) 1b. Level of Consciousness (LOC) (Month \T\ Age) - 0(Both) 1c. LOC Commands (Open \T\ Closes Eyes/Homebirth Midwife) - 0(Both) 2. Best Gaze (Lateral Gaze Paresis) - 0(Normal) 3. Visual Field Loss - 0(No visual loss) 4. Facial Palsy - 0(Normal) 5a. Left Arm: Motor (10-second hold) - 0(No drift) 5b. Right Arm: Motor (10-second hold) - 0(No drift) 6a. Left Leg: Motor (5-second hold - always test supine) - 0(No drift) 6b. Right Leg: Motor (5-second hold - always test supine) - 0(No drift) 7. Limb Ataxia (finger/nose \T\ heel/park - test with eyes open) - 0(Absent) 8. Sensory Loss (pinprick arms/legs/face) - 0(Normal) 9. Best Language: Aphasia (description/naming/reading) - 0(No aphasia) Initials: sp4 Signatures: Dispatcher [employer] EDAnkit Diallo, RN RN jb4 Gale Alas RN RN ll1 Jessica Gilliam RN RN kb3 Zhou Isbell MD MD sp4 Mariajose Contreras Ashley af3 Yakubu, Awudu, RN KASEY ay Corrections: (The following items were deleted from the chart) 10/22 22:29 21:00 D50W IVP 50 ml IVP in right antecubital ay ay
[2024-10-23] MEDS: HEPARIN 5000 UNIT/ML 1 ML VIAL SQ SCH (01:00)
[2024-10-23] MEDS ORDERED: HEPARIN 5000 UNIT/ML 1 ML VIAL ONE ×2 (03:22→10:10)
[2024-10-23 03:53] VITALS: BMI 26.6
[2024-10-23] MEDS ORDERED: HYDRALAZINE HCL 20 MG/ML VIAL ONE (04:27)
[2024-10-23] MEDS: HYDRALAZINE HCL 20 MG/ML VIAL IV PRN (04:45)
[2024-10-23 05:19] LABS: Absolute Basophils 0.1 K/uL (0-0.5); Absolute Eosinophils 0.3 K/uL (0-0.5); Absolute Lymphocytes (CBC) 1.7 K/uL (0.7-4.9); Absolute Monocytes 0.8 K/uL (0.1-1.3); Absolute Neutrophil 4.5 K/uL (1.8-8.0); Basophils % 0.7 % (0-1.3); Eosinophils % 3.6 % (0-4.4); Hematocrit 31.8 % (39.6-49.0); Hemoglobin 10.2 g/dL (13.6-17.9); Lymphocytes % 22.8 % (15.3-44.8); MCH 28.2 pg (27.0-35.0); MCHC 32.2 g/dL (32.0-36.0); MCV 87.5 fL (80-100); MPV 7.7 fL (7.6-11.3); Neutrophils % 61.9 % (41.7-73.7); Nucleated Red Blood Cells % 0.1 % (0-0); Platelets 256 thou/uL (152-406); RBC Red Blood Cell Count 3.63 M/uL (4.33-5.43); Red Cell Distribution Width 17.1 % (12.1-15.2)
[2024-10-23 05:39] LABS: Phosphorus 5.9 mg/dL (2.5-4.9)
[2024-10-23 05:40] LABS: Anion Gap 12.4 mEq/L (5.0-15.0)
[2024-10-23 05:54] LABS: Potassium 6.4 mEq/L (3.5-5.1)
[2024-10-23 05:55] LABS: Magnesium 2.6 mg/dL (1.6-2.4)
--- NOTE | 2024-10-23 07:06 | P.PN ---
Date of Service: 10/23/24 Subjective: no acute events overnight doing better ROS: 10 point ROS as noted above, otherwise negative Physical Exam: CV: Regular rate and rhythm, no edema Pulm: Nonlabored respirations on room air, clear bilaterally ABD: soft, nontender, nondistended Integumentary: R subclavian HD port Neuro: somnolent, lethargic Problem List: Acute seizure IDDM2 with hypoglycemia ESRD on HD MWF Hyperkalemia Hyponatremia, Hypocalcemia Diarrhea Hypertension Hyperlipidemia Hx of R foot osteomyelitis (2023) Acute seizure IDDM2 with hypoglycemia on admission, presents to ED after a witnessed seizure. Patient hypoglycemic at the time in 30s. He also reports multiple episodes of diarrhea over last few days. He reports administered himself 2u of Humulin R when his BG was 148 and he reportedly seized shortly after. Found unresponsive with BG on 32. BG improved to 89 after d50 per EMS. Dropped back down to 32 on ER arrival. Patient recently diagnosed with new onset seizures back in August 2024. Was told to follow up with Dr. Jeffers at the time. given 1L D5NS, 1L D10W, IV keppra, reglan in ED. CXR, CT head negative for any acute findings. Dr. Jeffers, neuro consulted continue hydralazine TID accu-cheks, SSI hold home insulin ESRD on HD MWF Hyperkalemia Hyponatremia, Hypocalcemia Continue to monitor renal function Monitor and replete electrolytes as needed Nephrology consulted Dialysis per nephrology given 2L IVF in ED. repeat labs Diarrhea reports multiple episodes of diarrhea over last few days. check stool studies, c.diff Hypertension Hyperlipidemia confirm home meds, restart as appropriate continue hydralazine TID VTE: heparin sq Code: Full Dispo: Home Pending neuro recs, nephrology recs, dialysis. Time Spent Managing Pts Care (In Minutes): 55
[2024-10-23 08:51] LABS: Anion Gap 12.5 mEq/L (5.0-15.0); Potassium 5.5 mEq/L (3.5-5.1)
[2024-10-23] MEDS: HYDRALAZINE HCL 25 MG TABLET PO SCH (09:00)
[2024-10-23] MEDS ORDERED: HYDRALAZINE HCL 25 MG TABLET ONE (10:10)
[2024-10-23] MEDS ORDERED: ACETAMINOPHEN 500 MG TAB ONE (10:10)
[2024-10-23] MEDS ORDERED: NA CHLORIDE 0.9% 1,000 ML IV PRN (11:24)
[2024-10-23] MEDS ORDERED: MANNITOL 25% 12.5 GM/50 ML VIAL IV PRN (11:24)
--- NOTE | 2024-10-23 11:34 | P.CNS ---
Date of Consult: 10/23/24 Reason for Consult: ESRD Requesting Physician: Tony Nunez Chief Complaint: hypoglycemic seizure History of Present Illness: Patient is a 34 year old male with a PMH of HTN, Type II diabtes mellitus and ESRD. He follows with Dr Oneal. Patient is brought in via EMS after a witnessed seizure. He was reportedly hypoglycemic on site with BG in the 30's. He has a history of type 2 diabetes mellitus and hypoglycemia-related seizures. Patient states that he administered himself 2 units of regular insulin, Humulin R. His blood glucose was 148 at the time. He seized. EMS was called. His blood glucose was in the 30s. He received D50 en route to the ER. His blood glucose dropped again to 32 upon arrival. He is now on D5 1/2 NS but barely keeping BG >95. IV fluid changed to D10 infusion. Other than hypoglycemia, the rest of his work up is unremarkable. CXR and CT head were negative as well. Patient has a history of ESRD on hemodialysis Wednesday. He is due to have dialysis tomorrow. During my evaluation, patient was drowsy but arousable. He states that his been having diarrhea for the past few days. No much change in his appetite. 20:41 This 34 yrs old Black Male presents to ER via Unassigned with complaints of seizure. Reports right shoulder pain with ulnar nerve numbness. Does not know why he became hypoglycemia yesterday but admits to a poor DM diet. Allergies aspirin Adverse Reaction (Verified 06/03/24 21:06) Hives/Rash Sulfa (Sulfonamide Antibiotics) Adverse Reaction (Verified 06/03/24 21:07) Hives/Rash sulfamethoxazole [From Bactrim] Adverse Reaction (Verified 06/03/24 21:07) Hives/Rash trimethoprim [From Bactrim] Adverse Reaction (Verified 06/03/24 21:07) Hives/Rash vancomycin Adverse Reaction (Verified 06/03/24 21:07) Hives/Rash Home medications list reviewed: Yes Home Medications: Atorvastatin Calcium 40 mg PO BEDTIME 06/03/24 Buproprion S.r. [Wellbutrin Sr*] 150 mg PO DAILY 06/03/24 Insulin Aspart [Novolog Flexpen] See Protocol SQ ACHS 06/03/24 Metoprolol Succinate 2 tab PO DAILY 06/03/24 NIFEdipine [Nifedipine ER] 60 mg PO DAILY 06/03/24 cloNIDine HCL [Clonidine HCl] 0.1 mg PO TID 06/03/24 Ferrous Sulfate 325 mg PO DAILY 30 Days #30 tab 06/10/24 Losartan Potassium [Cozaar*] 50 mg PO BID 30 Days #60 tab 06/10/24 Quetiapine Fumarate [Seroquel] 50 mg PO BEDTIME 30 Days #30 tab 06/10/24 Calcium Acetate 667 mg PO TID 07/18/24 Hydralazine [Apresoline*] 100 mg PO TID 07/18/24 Furosemide 40 mg PO DAILY 09/05/24 Furosemide [Lasix*] 20 mg PO BEDTIME 09/05/24 Insulin Detemir [Levemir] 10 units SQ BID 09/05/24 Insulin Regular, Human [Humulin R U-500 Kwikpen] 10 unit SQ TID 09/05/24 Bumetanide 2 mg PO BID 10/23/24 Gabapentin [Neurontin*] 100 mg PO BID 10/23/24 Hydrocodone Bit/Acetaminophen [Hydrocodon-Acetaminophen 5-325] 1 tab PO PRN PRN 10/23/24 - Past Medical/Surgical History Diabetic: Yes -: HTN -: DM I with CKD, Polyneuropathy & Retinopathy -: ESRD on HD (Dr. Oneal/ [facility]) -: Anemia -: Incision right foot - Family History Father Medical History: Heart disease, Diabetes, Stroke, Kidney disease Notes: DM. CHF Mother Medical History: Diabetes, Kidney disease Notes: Dementia showing early on set - Social History Smoking Status: Unknown if ever smoked Alcohol use: No CD- Drugs: No Caffeine use: Yes Place of Residence: Home Review of Systems 10-point ROS is otherwise unremarkable General: Weakness, Malaise Cardiovascular: Edema Gastrointestinal: Diarrhea Neurological: Numbness Physical Examination Temp Pulse Resp BP Pulse Ox 97.7 F 66 17 158/96 H 99 10/23/24 08:00 10/23/24 08:00 10/23/24 08:00 10/23/24 08:00 10/23/24 08:00 General: Oriented x3, Cooperative HEENT: Atraumatic Neck: Supple Respiratory: Normal air movement Cardiovascular: Regular rate/rhythm, Edema Gastrointestinal: Soft and benign, Non-distended Musculoskeletal: No clubbing, No contractures Integumentary: No rashes, No cyanosis Neurological: Normal speech Laboratory Data (last 24 hrs) 10/22/24 10/22/24 10/22/24 21:25 21:25 21:25 WBC 7.20 Hgb 10.8 L Hct 33.9 L Plt Count 265 PT 12.4 INR 1.18 Sodium 139 Potassium 5.0 BUN 69 H Creatinine 11.40 H Glucose 114 H Magnesium 2.6 H Total Bilirubin 0.3 AST 28 ALT 46 Alkaline Phosphatase 144 H Imagings Data: EXAM: Chest Single View HISTORY: seizure COMPARISON: 09/06/2024 FINDINGS: LUNGS/PLEURA: The lungs are clear. No pleural effusions or pneumothorax. No pulmonary edema. Aeration is improved from prior. MEDIASTINUM: The mediastinal silhouette is within normal limits. CARDIAC: Mild cardiomegaly UPPER ABDOMEN: No significant abnormality. BONES: No acute abnormality. LINES/TUBES/OTHER: Right IJ approach Vas-Cath catheter with tip overlying the superior cavoatrial junction. IMPRESSION: No evidence of acute cardiopulmonary disease. Reason for Exam: seizure and headache Report Status: Signed EXAMINATION: CT HEAD WITHOUT CONTRAST CLINICAL INDICATION: Male, 34 years old.seizure and headache TECHNIQUE: Axial CT images from the skull base to the vertex without intravenous contrast. Coronal and sagittal reformatted images were created from the data set. One or more of the following dose reduction techniques were used: Automated exposure control, adjustment of the mA and/or kV according to patient size, and/or iterative reconstruction. Unless otherwise specified, incidental findings do not require dedicated imaging follow-up. [id number]. COMPARISON: No prior exam. FINDINGS: INTRACRANIAL: No acute intracranial hemorrhage. No hydrocephalus. No mass effect or midline shift. No significant white matter disease. VASCULATURE: No visualized abnormalities in the arteries or dural venous sinuses. SCALP/SKULL: No significant soft tissue or osseous abnormalities. SINUSES: The visualized paranasal sinuses and mastoid air cells are predo minantly clear. IMPRESSION: No acute intracranial abnormality. Conclusions/Impression: 34 yo BM DM, CKD admitted for seizures in the setting of hypoglycemia ESRD on HD Hyperkalemia -Acute HD today HTN with CKD -Continue Hydralazine -Hydralazine IV prn -Restart home medications as indicated DM I with CKD & Polyneuropathy -RISS prn Anemia in CKD -Retacrit qHD CKD MBD -Start Calcitriol -Start Chucho Hospitalist and ER notes reviewed Thank you kindly for the consultation
[2024-10-23] MEDS ORDERED: ALBUMIN HUMAN 25% 50 ML IV SCH (12:00)
[2024-10-23] MEDS: SEVELAMER CARBONATE 800 MG TABLET PO SCH (12:00)
[2024-10-23] MEDS: HYDROCODONE/APAP 7.5/325 MG TAB PO PRN (12:15)
[2024-10-23] MEDS ORDERED: HYDROCODONE/APAP 7.5/325 MG TAB ONE (12:22)
[2024-10-23 12:43] VITALS: O2SAT 99
[2024-10-23 12:44] LABS: Specific Gravity 1.012 (1.005-1.030); Sqamous Epithelial <5 /HPF (None Seen); Urine Bacteria None Seen /HPF (<20); Urine Bilirubin NEGATIVE (Negative); Urine Blood Negative (Negative); Urine Clarity Clear (Clear); Urine Color Light-Yellow (Yellow); Urine Culture Reflex Order NOT NEEDED; Urine Glucose 1+ (Negative); Urine Ketones NEGATIVE (Negative); Urine Microscopic Reflex YN ORDER UMIC; Urine Nitrite NEGATIVE (Negative); Urine Protein 2+ (Negative); Urine RBC <5 /HPF (None Seen); Urine Urobilinogen Normal (Normal); Urine WBC <5 /HPF (<5); Urine pH 5.5 (5.0-7.0)
[2024-10-23] MEDS: EPOETIN ALFA 10,000 UNIT/ML VIAL IV SCH (17:15)
[2024-10-23] MEDS: LACTOBACILLUS/ACIDOPHILUS TAB PO SCH (17:30)
[2024-10-23] MEDS: DOCUSATE NA 100 MG CAP PO SCH (20:26)
[2024-10-23] MEDS: HYDROMORPHONE HCL 0.5 MG/0.5 ML INJ IV PRN (23:03)
[2024-10-24] MEDS: ONDANSETRON 4 MG/2 ML VIAL IV PRN (01:56)
[2024-10-24 05:19] LABS: Hemoglobin 11.6 g/dL (13.6-17.9); MCH 28.1 pg (27.0-35.0); MCHC 32.3 g/dL (32.0-36.0); MCV 86.8 fL (80-100); MPV 7.6 fL (7.6-11.3); Platelets 304 thou/uL (152-406); RBC Red Blood Cell Count 4.14 M/uL (4.33-5.43); Red Cell Distribution Width 17.2 % (12.1-15.2)
[2024-10-24 06:01] LABS: Anion Gap 12.4 mEq/L (5.0-15.0); Potassium 5.4 mEq/L (3.5-5.1)
[2024-10-24] MEDS: SODIUM ZIRCONIUM CYCLOSILICATE 10 GM/PKT PO ONE ×2 (08:00→13:49)
[2024-10-24] MEDS: CALCITROL 0.25 MCG CAP PO SCH (09:04)
[2024-10-24] MEDS: MULTIVITAMINS,THERAPEUT 1 TAB PO SCH (09:05)
--- NOTE | 2024-10-24 09:14 | RAD REPORT ---
EXAM: XR Abdomen W Decubitus HISTORY: [facility] MA[facility] Radiology may adjust order as needed to Non-fx PD catheter to evaluate position Two view abd xray to determine PD cath position COMPARISON: None TECHNIQUE: AP and decubitus views. FINDINGS: Nonspecific, nonobstructive bowel gas pattern. Peritoneal dialysis catheter loop present in the right flank. Up to moderate stool burden throughout the colon. No evidence of free air on the decubitus view. No suspicious calcifications are seen. The bones are unremarkable. IMPRESSION: Peritoneal dialysis catheter in place. No evidence of free air. Moderate stool burden throughout the colon.
--- NOTE | 2024-10-24 12:16 | EKG ---
Test Date: 2024-10-22 Test Time: 20:52:51 Greeting Card Editor: LILI MEASUREMENT RESULTS: Intervals: Rate: 70 ID: [id number] QRSD: 112 QT: 450 QTc: 486 Lapaz: P: 68 ID: [id number] QRS: -38 T: -22 INTERPRETIVE STATEMENTS: Sinus rhythm with 1st degree AV block Left axis deviation Anteroseptal infarct, possibly acute T wave abnormality, consider inferolateral ischemia ACUTE MO Abnormal ECG Compared to ECG 09/04/2024 22:30:17 First degree AV block now present Prolonged QT interval no longer present Myocardial infarct finding still present T-wave abnormality still present Possible ischemia still present Electronically Signed On 10-24-24 12:14:40 8TH GR[employer] TEACH[employer] by Gerson Santos
[2024-10-24 12:42] VITALS: TEMP 98.1
[2024-10-24] MEDS ORDERED: D10W 125 ML IV PRN (13:18)
[2024-10-24] MEDS ORDERED: GLUCAGON 1 MG/VIAL IM PRN (13:18)
[2024-10-24] MEDS: INSULIN REGULAR (HUMAN) 100 UNIT/ML SQ ONE (13:40)
--- NOTE | 2024-10-24 14:19 | CON ---
Reason For Consultation: Consultation called because of seizures. History Of Present Illness: Mr. Marlow is a 34-year-old right-handed patient with history of end-stage renal disease, on peritoneal dialysis Wednesday, Wednesday, Wednesday, diabetes mellitus with right diabet ic foot ulcer, who apparently received an extra dose of insulin and became very confused, disoriented , and had seizure-like activity. He was brought to [facility], where blood sugars found to be around 32. He received treatment to address the hypoglycemia, which did improve, but total, the p atient had reported about 3 episodes of tonic-clonic activity. In retrospect, he said that he has hendrix d history of seizures in the past, 1 additional episode related to hypoglycemia and another without l ow blood sugars. He was never treated for seizures or had a full workup for epilepsy. He does have a first cousin on paternal side who has epilepsy. His head CT scan showed no acute intracranial abnormalities. Brain MRI pending. As noted, his initi al blood sugar was 32 and now corrected, he is at 204. He has hypocalcemia to 6.6 and had hyperkalem ia to 6.4 and creatinine of 11. His urinalysis showed 2+ protein, 1+ glucose, and his white blood ce ll count 7.3, hemoglobin 10.2. Past Medical History: As noted in addition, he has right diabetic foot ulcer. Allergies: ASPIRIN, BACTRIM, SULFA DRUGS, AND VANCOMYCIN. Home Medications: Atorvastatin 40 mg daily, bupropion 150 mg daily, clonidine 0.1 mg 3 times daily, hydralazine 100 mg daily, Lantus insulin 10 units twice daily, Lasix 40 mg daily, metoprolol 100 mg t wice daily, nifedipine 60 mg twice daily, insulin FlexPen as needed sliding scale, Seroquel 50 mg lon ly. Review of Systems: He reports no recent fevers or chills. No myalgias, arthralgias. No rash. He has mild pain in the right foot, it is bandaged and is being followed in clinic. Otherwise, no positives on the systems r eview. Physical Examination: Vital Signs: Blood pressure 172/104, pulse of 68, respiratory rate 17, temperature 97.8, oxygen satu ration 99%. General: Mr. Marlow was standing in the emergency room next to his bed with IV pole in tow. He has th e right foot bandaged, where there is stasis changes noted and the toes that are exposed. HEENT: Otherwise, he is normocephalic, atraumatic. Sclerae anicteric. Oropharynx pink and moist. Neck: Supple. Chest: Clear. Heart: Regular. Extremities: Again show mild cyanosis in the right lower extremity. No edema in the left side. Neurologic: He has no focal cranial nerves, motor, coordination, sensory, or gait deficits. Normal [id number], [id number] bilaterally. Assessment: Mr. Marlow is a 34-year-old patient with epilepsy. He has had 3 seizures, 2 potentially i n the setting of hypoglycemia and 1 with no known provoking factors. He has diabetes mellitus, diabe tic peripheral neuropathy, diabetic foot ulcer, hypertension, and is at risk for additional seizures. Plan: 1. He should be placed on Keppra with the renal dose perhaps 250 mg twice daily. 2. Continue aggressive management of his blood sugars and hypertension as well. 3. The patient was advised on modifying his potential seizure risk factors such as stress, fever, inf ection, sleep deprivation, and alcohol use. He may benefit from routine electroencephalogram if poss ible done in hospital or after discharge. Also, once the patient has completed his workup medically and is addressed blood sugars, he may follow up in Dr. Jeffers's clinic within the month. CRYSTAL/BRIT Voice ID: [id number] Report ID: [id number]
[2024-10-24] MEDS: INSULIN REGULAR (HUMAN) 100 UNIT/ML SQ SCH (16:30)
[2024-10-24 17:23] VITALS: BP 141/82
--- NOTE | 2024-10-24 18:01 | P.DS ---
Admission Date: 10/22/24 Discharge Date: 10/24/24 Disposition: ROUTINE DISCHARGE Discharge Condition: FAIR Reason for Admission: hypoglycemic seizure Brief History of Present Illness: Patient is a 34 year old male with a PMH of HTN, Type II diabtes mellitus and ESRD. He follows with Dr Oneal. Patient was brought in via EMS after a witnessed seizure. He was reportedly hypoglycemic on site with BG in the 30's. He has a history of type 2 diabetes mellitus and hypoglycemia-related seizures. Patient states that he administered himself 2 units of regular insulin, Humulin R. His blood glucose was 148 at the time. He seized. EMS was called. His blood glucose was in the 30s. He received D50 en route to the ER. His blood glucose dropped again to 32 upon arrival. He is now on D5 1/2 NS but barely keeping BG >95. IV fluid changed to D10 infusion. Other than hypoglycemia, the rest of his work up was unremarkable. CXR and CT head were negative as well. Patient has a history of ESRD on hemodialysis Wednesday. Hospital Course: Diagnosis Acute seizure IDDM2 with hypoglycemia ESRD on HD MWF Hyperkalemia Hyponatremia, Hypocalcemia Diarrhea Hypertension Hyperlipidemia Hx of R foot osteomyelitis (2023) Acute seizure IDDM2 with hypoglycemia on admission, presents to ED after a witnessed seizure. Patient hypoglycemic at the time in 30s. He also reports multiple episodes of diarrhea over last few days. Patient recently diagnosed with new onset seizures back in August 2024. Was told to follow up with Dr. Jeffers at the time. Patient given 1L D5NS, 1L D10W, IV keppra, reglan in ED. CXR, CT head negative for any acute findings. Dr. Jeffers evaluated patient and recommended Keppra 50 mg twice a day and follow-up in the office for EEG Blood pressure treated hydralazine TID as inpatient Blood sugar managed accu-cheks, SSI Held home dose long-acting insulin and Premeal insulin. Patient advised not to drive. ESRD on HD MWF Hyperkalemia Hyponatremia, Hypocalcemia Nephrology evaluated patient for dialysis. Patient underwent routine dialysis. Hypertension Hyperlipidemia Blood pressure treated with hydralazine-patient. BP management discussed with patient's home therapy clinician Dr. Oneal who recommended resuming patient's home antihypertensives-losartan and metoprolol on discharge. Hydralazine discontinued. Vital Signs/Physical Exam: Temp Pulse Resp BP Pulse Ox 98.1 F 87 16 141/82 H 99 10/24/24 16:00 10/24/24 16:00 10/24/24 16:00 10/24/24 16:00 10/24/24 12:00 General: Alert, In no apparent distress, Oriented x3 HEENT: Mucous membr. moist/pink Neck: Supple, JVD not distended Respiratory: Clear to auscultation bilaterally, Normal air movement Cardiovascular: No edema, Regular rate/rhythm, Normal S1 S2 Gastrointestinal: Normal bowel sounds, Soft and benign, Non-distended, No tenderness Musculoskeletal: No swelling Integumentary: No rashes, No cyanosis Neurological: Normal speech, Normal strength at 5/5 x4 extr, Cranial nerves 3-12 intact Laboratory Data at Discharge: WBC 7.50 thou/uL (4.3-10.9) 10/24/24 04:56 Hgb 11.6 g/dL (13.6-17.9) L D 10/24/24 04:56 Hct 36.0 % (39.6-49.0) L 10/24/24 04:56 Plt Count 304 thou/uL (152-406) 10/24/24 04:56 PT 12.4 SECONDS (9.4-12.5) 10/22/24 21:25 INR 1.18 10/22/24 21:25 Sodium 131 mEq/L (136-145) L D 10/24/24 04:56 Potassium 5.4 mEq/L (3.5-5.1) H 10/24/24 04:56 BUN 41 mg/dL (7-18) H 10/24/24 04:56 Creatinine 8.41 mg/dL (0.70-1.30) H 10/24/24 04:56 Glucose 241 mg/dL (74-106) H 10/24/24 04:56 Phosphorus 5.9 mg/dL (2.5-4.9) H 10/23/24 04:45 Magnesium 2.6 mg/dL (1.6-2.4) H 10/23/24 04:45 Total Bilirubin 0.3 mg/dL (0.2-1.0) 10/22/24 21:25 AST 28 U/L (15-37) 10/22/24 21:25 ALT 46 U/L (16-61) 10/22/24 21:25 Alkaline Phosphatase 144 U/L (45-117) H 10/22/24 21:25 Home Medications: Atorvastatin Calcium 40 mg PO BEDTIME 06/03/24 Insulin Aspart [Novolog Flexpen] See Protocol SQ ACHS 06/03/24 Metoprolol Succinate 2 tab PO DAILY 06/03/24 Ferrous Sulfate 325 mg PO DAILY 30 Days #30 tab 06/10/24 Losartan Potassium [Cozaar*] 50 mg PO BID 30 Days #60 tab 06/10/24 Hydralazine [Apresoline*] 100 mg PO TID 07/18/24 Furosemide 40 mg PO DAILY 09/05/24 Furosemide [Lasix*] 20 mg PO BEDTIME 09/05/24 Gabapentin [Neurontin*] 100 mg PO BID 10/23/24 Hydrocodone Bit/Acetaminophen [Hydrocodon-Acetaminophen 5-325] 1 tab PO PRN PRN 10/23/24 Docusate [Colace Cap*] 100 mg PO BID #60 cap 10/24/24 Epoetin [Procrit*] 10,000 unit IV EVERY HD vial 10/24/24 Heparin [Heparin 1,000 units/mL *] 3,000 unit IV EVERY HD PRN vial 10/24/24 Heparin [Heparin 1,000 units/mL *] 6,000 unit IV EVERY HD PRN vial 10/24/24 Levetiracetam [Keppra] 250 mg PO BID #60 tab 10/24/24 Mannitol 25% [Mannitol*] 12.5 gm IV EVERY HD PRN vial 10/24/24 Sevelamer Carbonate [Renvela*] 800 mg PO TIDWM #90 tab 10/24/24 calcitrioL [Calcitriol] 0.5 mcg PO DAILY #30 cap 10/24/24 New Medications: calcitrioL [Calcitriol] 0.5 mcg PO DAILY #30 cap Docusate [Colace Cap*] 100 mg PO BID #60 cap Levetiracetam [Keppra] 250 mg PO BID #60 tab Sevelamer Carbonate [Renvela*] 800 mg PO TIDWM #90 tab Diet: ADA Activity: Ad bernardo Followup: Javon Oneal, [ACTIVE - CAN ADMIT] - 1 Week Thompson Jeffers MD [ASSOCIATE-ACTIVE - CAN ADMIT] - 1-2 Weeks (Please call for appointment. You need EEG.) NONE,NONE [Primary Care Provider] - Time spent managing pt's care (in minutes): 35
--- NOTE | 2024-10-24 18:53 | P.PN ---
Date of Service: 10/24/24 Vital Signs Temp Pulse Resp BP Pulse Ox 98.1 F 87 16 141/82 H 99 10/24/24 16:00 10/24/24 16:00 10/24/24 16:00 10/24/24 16:00 10/24/24 12:00 Medications Hydrocodone Bitart/Acetaminophen (Hydrocodone/Apap 7.5/325 Mg Tab) 1 tab PO Q6H PRN PRN Reason: Pain scale 5-7 (Moderate) Last Admin: 10/23/24 20:27 Dose: 1 tab Calcitriol (Calcitrol 0.25 Mcg Cap) 0.5 mcg PO DAILY [facility] Last Admin: 10/24/24 09:04 Dose: 0.5 mcg Docusate Sodium (Docusate Na 100 Mg Cap) 100 mg PO BID [facility] Last Admin: 10/24/24 09:00 Dose: Not Given Epoetin Victoriano (Epoetin Victoriano 10,000 Unit/Ml Vial) 10,000 unit IV EVERY HD [facility] Last Admin: 10/23/24 17:15 Dose: 10,000 unit Glucagon (Glucagon 1 Mg/Vial) 1 mg IM 1X PRN PRN Reason: HYPOGLYCEMIA Heparin Sodium (Porcine) (Heparin 5000 Unit/Ml 1 Ml Vial) 5,000 unit SQ Q8HR [facility] Last Admin: 10/24/24 17:00 Dose: Not Given Heparin Sodium (Porcine) (Heparin 1,000 Unit/Ml Vial) 6,000 unit IV EVERY HD PRN PRN Reason: AFTER EACH Last Admin: 10/23/24 17:36 Dose: 6,000 unit Heparin Sodium (Porcine) (Heparin 1,000 Unit/Ml Vial) 3,000 unit IV EVERY HD PRN PRN Reason: Prevent HD System Clotting Last Admin: 10/23/24 14:27 Dose: 3,000 unit Hydralazine HCl (Hydralazine Hcl 20 Mg/Ml Vial) 10 mg IV Q4HP PRN PRN Reason: FOR SBP>160 OR DBP>100 MMHG Last Admin: 10/23/24 04:45 Dose: 10 mg Hydralazine HCl (Hydralazine Hcl 25 Mg Tablet) 100 mg PO TID [facility] Last Admin: 10/24/24 13:46 Dose: 100 mg Hydromorphone HCl (Hydromorphone Hcl 0.5 Mg/0.5 Ml Inj) 0.5 mg IV Q6H PRN PRN Reason: Pain scale 8-10 (Severe) Last Admin: 10/24/24 13:53 Dose: 0.5 mg Albumin Human (Albumin 25%) 50 mls @ 100 mls/hr IV EVERY HD [facility] Dextrose (Dextrose 10% Water Iv Soln.) 125 mls @ 0 mls/hr IV PRN PRN; Protocol PRN Reason: HYPOGLYCEMIA Insulin Human Regular (Insulin Regular (Human) 100 Unit/Ml) 0 unit SQ ACHS TEAGAN; Protocol Last Admin: 10/24/24 16:30 Dose: 5 unit Lactobacillus Acidoph/Bulgaricus (Lactobacillus/Acidophilus Tab) 1 tab PO BIDPC [facility] Last Admin: 10/24/24 17:46 Dose: 1 tab Mannitol (Mannitol 25% 12.5 Gm/50 Ml Vial) 12.5 gm IV EVERY HD PRN PRN Reason: Titrate to SBP (MUST DEFINE) Ondansetron HCl (Ondansetron 4 Mg/2 Ml Vial) 4 mg IV Q6HP PRN PRN Reason: NAUSEA / VOMITING Last Admin: 10/24/24 17:49 Dose: 4 mg Sevelamer Carbonate (Sevelamer Carbonate 800 Mg Tablet) 800 mg PO TIDWM [facility] Last Admin: 10/24/24 17:46 Dose: 800 mg Vitamin B Complex/Vit C/Folic Acid (Multivitamins,Therapeut 1 Tab) 1 tab PO DAILY [facility] Last Admin: 10/24/24 09:05 Dose: 1 tab Assessment/ Plan: Nephrology No dyspnea No chest pain Feeling better. No new episodes of hypoglycemia. No acute events overnight Vitals, medications, blood work and imaging reviewed in the chart General: Oriented x3, Cooperative HEENT: Atraumatic Neck: Supple Respiratory: Normal air movement Cardiovascular: Regular rate/rhythm, Edema Gastrointestinal: Soft and benign, Non-distended Musculoskeletal: No clubbing, No contractures Integumentary: No rashes, No cyanosis Neurological: Normal speech Laboratory Data (last 24 hrs) 10/22/24 10/22/24 10/22/24 21:25 21:25 21:25 WBC 7.20 Hgb 10.8 L Hct 33.9 L Plt Count 265 PT 12.4 INR 1.18 Sodium 139 Potassium 5.0 BUN 69 H Creatinine 11.40 H Glucose 114 H Magnesium 2.6 H Total Bilirubin 0.3 AST 28 ALT 46 Alkaline Phosphatase 144 H Imagings Data: EXAM: Chest Single View HISTORY: seizure COMPARISON: 09/06/2024 FINDINGS: LUNGS/PLEURA: The lungs are clear. No pleural effusions or pneumothorax. No pulmonary edema. Aeration is improved from prior. MEDIASTINUM: The mediastinal silhouette is within normal limits. CARDIAC: Mild cardiomegaly UPPER ABDOMEN: No significant abnormality. BONES: No acute abnormality. LINES/TUBES/OTHER: Right IJ approach Vas-Cath catheter with tip overlying the superior cavoatrial junction. IMPRESSION: No evidence of acute cardiopulmonary disease. Reason for Exam: seizure and headache Report Status: Signed EXAMINATION: CT HEAD WITHOUT CONTRAST CLINICAL INDICATION: Male, 34 years old.seizure and headache TECHNIQUE: Axial CT images from the skull base to the vertex without intravenous contrast. Coronal and sagittal reformatted images were created from the data set. One or more of the following dose reduction techniques were used: Automated exposure control, adjustment of the mA and/or kV according to patient size, and/or iterative reconstruction. Unless otherwise specified, incidental findings do not require dedicated imaging follow-up. [id number]. COMPARISON: No prior exam. FINDINGS: INTRACRANIAL: No acute intracranial hemorrhage. No hydrocephalus. No mass effect or midline shift. No significant white matter disease. VASCULATURE: No visualized abnormalities in the arteries or dural venous sinuses. SCALP/SKULL: No significant soft tissue or osseous abnormalities. SINUSES: The visualized paranasal sinuses and mastoid air cells are predominan tly clear. IMPRESSION: No acute intracranial abnormality. Conclusions/Impression: 34 yo BM DM, CKD admitted for seizures in the setting of hypoglycemia ESRD on HD Hyperkalemia -HD TIW -Lokelma as ordered HTN with CKD -Continue Hydralazine -Hydralazine IV prn -Restart home medications as indicated DM I with CKD & Polyneuropathy -RISS prn Anemia in CKD -Retacrit qHD CKD MBD -Continue Calcitriol -Continue Renvela Case reviewed with Dr. Fonseca
== END 2024-10-24 19:49 | disposition home or self-care (01) | DRG 100 ==
LOC: ER 20:15 → ERHOLD 22:46 → 2ND 10-23 16:04
PROVIDERS: ADMIT Internal Medicine; ATTEND Internal Medicine
PROC: 5A1D70Z Performance of Urinary Filtration, Intermittent, Less than 6 Hours Per Day (ICD-10-PCS; principal; 2024-10-23)
DX: R56.9 Unspecified convulsions (principal); N18.6 End stage renal disease; E87.1 Hypo-osmolality and hyponatremia; I12.0 Hypertensive chronic kidney disease with stage 5 chronic kidney disease or end stage renal disease; E11.649 Type 2 diabetes mellitus with hypoglycemia without coma; E11.22 Type 2 diabetes mellitus with diabetic chronic kidney disease; E11.42 Type 2 diabetes mellitus with diabetic polyneuropathy; E11.621 Type 2 diabetes mellitus with foot ulcer; L97.519 Non-pressure chronic ulcer of other part of right foot with unspecified severity; D63.1 Anemia in chronic kidney disease; E87.5 Hyperkalemia; E83.51 Hypocalcemia; E78.5 Hyperlipidemia, unspecified; Z99.2 Dependence on renal dialysis; Z88.6 Allergy status to analgesic agent; Z88.2 Allergy status to sulfonamides; Z88.1 Allergy status to other antibiotic agents; Z79.4 Long term (current) use of insulin; Z79.899 Other long term (current) drug therapy
CPT/HCPCS: 36415; 70450; 71045; 74021; 80048; 80076; 81001; 82947; 83605; 83735; 83880; 84100; 84484; 85025; 85027; 85610; 90935; 93005; 96365; 96366; 96375; 99284; J0360; J1171; J1644; J1953; J2405; J2765; J7042; Q4081

== ENCOUNTER 2024-11-05 16:52 | Observation (INO) | payer OTHER ==
--- OUTSIDE RECORDS SUMMARY | 2024-11-05 16:57 | XMS REPORT | Continuity of Care Document ---
Author Name Unknown Address [address] [place] [address] th[address] Address [address] [facility]. [address] [place] [address] Care Team Providers Care Supervisor [employer] Name Role Phone Unavailable Unavailable Unavailable Encounters Start Date/Time End Date/Time Encounter Type Admission Type Attending Clinicians Care Facility Care Department Encounter ID Source 2024-08-08 10:32:49 2024-08-08 10:32:49 Outpatient [facility] [id number] Dennis Schmidt 2024-08-04 10:40:55 2024-08-04 10:40:55 Outpatient [facility] [id number] Dennis Schmidt
--- NOTE | 2024-11-05 18:26 | RAD REPORT ---
EXAM:Extremity Venous Uni Ltd HISTORY: Right leg pain TECHNIQUE: Sonographic evaluation right lower extremity performed.Grayscale, color and spectral nanci sis performed on all vessels COMPARISON: None. FINDINGS: Right common femoral, superficial femoral, greater saphenous, popliteal and posterior tibial veins ar e compressible and demonstrate augmentation. Doppler demonstrates good flow. IMPRESSION: No evidence of deep venous thrombosis involving the right lower extremity.
[2024-11-05] MEDS ORDERED: ONDANSETRON 4 MG/2 ML VIAL ONE ×2 (18:32→21:43)
[2024-11-05] MEDS ORDERED: MORPHINE 4 MG/ML SYR ONE ×2 (18:32→19:53)
[2024-11-05 18:34] LABS: Absolute Basophils 0.1 K/uL (0-0.5); Absolute Eosinophils 0.4 K/uL (0-0.5); Absolute Lymphocytes (CBC) 1.5 K/uL (0.7-4.9); Absolute Monocytes 0.7 K/uL (0.1-1.3); Absolute Neutrophil 6.3 K/uL (1.8-8.0); Hematocrit 39.3 % (39.6-49.0); Hemoglobin 12.7 g/dL (13.6-17.9); Lymphocytes % 17.2 % (15.3-44.8); MCH 28.6 pg (27.0-35.0); MCHC 32.4 g/dL (32.0-36.0); MCV 88.3 fL (80-100); MPV 7.8 fL (7.6-11.3); Neutrophils % 69.8 % (41.7-73.7); Nucleated Red Blood Cells % 0.1 % (0-0); Platelets 317 thou/uL (152-406); RBC Red Blood Cell Count 4.45 M/uL (4.33-5.43); Red Cell Distribution Width 17.2 % (12.1-15.2)
[2024-11-05 18:42] LABS: PT Prothrombin Time 12.2 SECONDS (9.4-12.5); PTT, Activated Partial Thromb 36.8 SECONDS (24.3-36.9); Protime INR 1.16
--- NOTE | 2024-11-05 18:42 | RAD REPORT ---
EXAM:Lower Extremity Artery Uni Ltd HISTORY: Right eg pain TECHNIQUE: Sonographic evaluation lower extremity arteries performed.Grayscale, color and spectral analysis performed on all vessels COMPARISON: None. FINDINGS: Right common femoral, superficial femoral and popliteal arterial waveforms are triphasic Popliteal and posterior tibial and dorsalis pedis arterial waveforms are monophasic. IMPRESSION: Monophasic popliteal arterial waveform may indicate a moderate distal superficial femoral arterial st enosis
[2024-11-05 18:51] LABS: Albumin 3.9 g/dL (3.4-5.0); Albumin/Globulin Ratio 0.7 (1.1-1.8); Anion Gap 15.2 mEq/L (5.0-15.0); Bilirubin Total 0.4 mg/dL (0.2-1.0); C-Reactive Protein 6.95 mg/L (<3.00); Globulin 5.7 g/dL (2.3-3.5); Protein, Total 9.6 g/dL (6.4-8.2)
[2024-11-05 18:58] LABS: Potassium 6.2 mEq/L (3.5-5.1)
[2024-11-05] MEDS ORDERED: FUROSEMIDE 40 MG/4 ML VIAL ONE (19:53)
[2024-11-05] MEDS ORDERED: FUROSEMIDE 20 MG/ 2ML VIAL ONE (19:53)
[2024-11-05] MEDS ORDERED: ALBUTEROL 2.5 MG/3 ML NEB SOL ONE (19:53)
[2024-11-05] MEDS ORDERED: INSULIN REGULAR (HUMAN) 100 UNIT/ML ONE (19:54)
[2024-11-05] MEDS ORDERED: SODIUM BICARB 50 MEQ/50ML VIAL ONE (19:54)
[2024-11-05] MEDS ORDERED: CALCIUM GLUCONATE 1 GM IVPB 1 GM/50 ML BAG IV ONE (19:55)
[2024-11-05] MEDS ORDERED: SOD POLYSTYREN SUL 15 GM/60 ML UCUP ONE (19:55)
[2024-11-05] MEDS ORDERED: D50W 25 GM/50 ML SYRINGE IV ONE ×2 (19:55→23:04)
--- NOTE | 2024-11-05 20:42 | ER ---
Nurse's Notes [facility] Name: Tan Marlow Age: 34 yrs Sex: Male : 1990 Arrival Date: 11/05/2024 Time: 16:52 Bed 27 Private MD: Diagnosis: Hyperkalemia;Hypertensive heart and chronic kidney disease without heart failure, with stage 5 chronic kidney disease, or end stage renal disease;Pain in right knee Presentation: 11/05 17:06 Chief complaint: Patient states: right knee pain and swelling that started about a week me1 ago and has worsened the past few days. Went to urgent care and had an xray then was sent to ER due to pain level. Pain is 10/10. Denies injury. Coronavirus screen: At this time, the client does not indicate any symptoms associated with coronavirus-19. Ebola Screen: No symptoms or risks identified at this time. Initial Sepsis Screen: Does the patient meet any 2 criteria? No. Patient's initial sepsis screen is negative. Does the patient have a suspected source of infection? No. Patient's initial sepsis screen is negative. Risk Assessment: Do you want to hurt yourself or someone else? Patient reports no desire to harm self or others. Onset of symptoms was October 29, 2024. 17:06 Method Of Arrival: Wheelchair me1 17:06 Acuity: LULY 4 me1 17:56 Acuity: LULY 3 hb Triage Assessment: 17:06 General: Appears uncomfortable, well groomed, well developed, well nourished, Behavior me1 is calm, cooperative, appropriate for age, Reports right knee pain and swelling that started about a week ago and has worsened the past few days. Pain: Complains of pain in right knee Pain does not radiate. Pain currently is 10 out of 10 on a pain scale. Quality of pain is described as sharp, Pain began gradually, Is continuous. EENT: No signs and/or symptoms were reported regarding the EENT system. Neuro: Level of Consciousness is awake, alert, obeys commands, Oriented to person, place, time, situation, Appropriate for age. Cardiovascular: Patient's skin is warm and dry. Respiratory: Airway is patent Respiratory effort is even, unlabored, Respiratory pattern is regular, symmetrical. GI: No signs and/or symptoms were reported involving the gastrointestinal system. : No signs and/or symptoms were reported regarding the genitourinary system. Derm: Skin is intact, is healthy with good turgor, Skin is pink, warm \\T\\ dry. Musculoskeletal: Reports pain in right knee since a week ago, worse over the past few days. Historical: - Allergies: 17:09 Aspirin; me1 17:09 Bactrim; me1 17:09 Sulfa (Sulfonamide Antibiotics); me1 17:09 Vancomycin; me1 - PMHx: 17:09 diabetes mellitus; Hypertensive disorder; kidney disease; MWF Dialysis (kidney me1 disease); Seizure; - PSHx: 17:09 right foot; me1 - Immunization history:: Adult Immunizations up to date. - Infectious Disease History:: Denies. - Social history:: Smoking status: Patient denies any tobacco usage or history of. Screenin:20 [facility] ED Fall Risk Assessment (Adult) History of falling in the last 3 months, aa5 including since admission No falls in past 3 months (0 pts) Confusion or Disorientation No (0 pts) Intoxicated or Sedated No (0 pts) Impaired Gait Yes (1 pt) Mobility Assist Device Used Yes (1 pt) Altered Elimination No (0 pt) Score/Fall Risk Level 0 - 2 = Low Risk Oriented to surroundings, Maintained a safe environment, Educated pt \\T\\ family on fall prevention, incl call for assistance when getting out of bed, Assessed \\T\\ reinforced patient's understanding of fall precautions. Abuse screen: Denies threats or abuse. Nutritional screening: No deficits noted. Tuberculosis screening: No symptoms or risk factors identified. Assessment: 18:20 General: Appears uncomfortable, Behavior is calm, cooperative. Pain: Complains of pain aa5 in right knee Pain currently is 10 out of 10 on a pain scale. Quality of pain is described as sharp, Pain began 1 week ago Is continuous, Aggravated by weight bearing, movement to right knee Noted to be resistant to movement. Neuro: Level of Consciousness is awake, alert, obeys commands, Oriented to person, place, time, situation. Cardiovascular: Patient's skin is warm and dry. Respiratory: Airway is patent Respiratory effort is even, unlabored, Respiratory pattern is regular, symmetrical. GI: No signs and/or symptoms were reported involving the gastrointestinal system. : No signs and/or symptoms were reported regarding the genitourinary system. EENT: No signs and/or symptoms were reported regarding the EENT system. Derm: Skin is dry, Skin is normal, Skin temperature is warm Pt reports chronic wound to right foot, pt states "It's almost healed all the way". Musculoskeletal: Range of motion: limited in right knee Swelling present in right knee. 19:16 General: Appears in no apparent distress. uncomfortable, Behavior is calm, cooperative. aa5 Pain: Complains of pain in right leg and right knee Pain currently is 8 out of 10 on a pain scale. Neuro: Level of Consciousness is awake, alert, obeys commands, Oriented to person, place, time, situation, Appropriate for age. Cardiovascular: Denies chest pain, Capillary refill < 3 seconds in bilateral fingers Patient's skin is warm and dry. Respiratory: Airway is patent Respiratory effort is even, unlabored, Respiratory pattern is regular, symmetrical. GI: No signs and/or symptoms were reported involving the gastrointestinal system. : No signs and/or symptoms were reported regarding the genitourinary system. EENT: No signs and/or symptoms were reported regarding the EENT system. Musculoskeletal: Range of motion: limited in right knee Swelling present in right knee Reports pain in right knee Pain is 8 out of 10 on a pain scale. 20:59 Reassessment: Patient appears in no apparent distress at this time. Patient and/or bm8 family updated on plan of care and expected duration. Pain level reassessed. Patient is alert, oriented x 3, equal unlabored respirations, skin warm/dry/pink. Pain: Complains of pain in right knee Pain currently is 5 out of 10 on a pain scale. 21:54 Reassessment: Patient appears in no apparent distress at this time. Patient and/or bm8 family updated on plan of care and expected duration. Pain level reassessed. Patient is alert, oriented x 3, equal unlabored respirations, skin warm/dry/pink. Patient states feeling better. Patient states symptoms have improved. Pain: Complains of pain in right knee Pain currently is 4 out of 10 on a pain scale. 21:54 GI: Reports nausea. 8 Vital Signs: 17:06 BP 172 / 91; Pulse 64; Resp 17; Temp 98.4; Pulse Ox 99% ; Weight 74.84 kg; Height 5 ft. me1 6 in. ; Pain 10/10; 18:30 BP 172 / 106; Pulse 71; Resp 19 S; Pulse Ox 100% on R/A; aa5 19:16 BP 154 / 99; Pulse 66; Resp 18; Temp 98.1; Pulse Ox 100% ; Pain 8/10; aa5 20:59 BP 165 / 96; Pulse 66; Resp 18; Temp 98.1; Pulse Ox 100% ; Pain 5/10; bm8 21:54 BP 147 / 82; Pulse 69; Resp 17; Temp 98.1; Pulse Ox 100% ; Pain 4/10; bm8 17:06 Body Mass Index 26.63 (74.84 kg, 167.64 cm) me1 17:06 Pain Scale: Adult me1 19:16 Pain Scale: Adult aa5 20:59 Pain Scale: Adult bm8 21:54 Pain Scale: Adult bm8 [place] Coma Score: 19:16 Eye Response: spontaneous(4). Motor Response: obeys commands(6). Verbal Response: aa5 oriented(5). Total: 15. 20:59 Eye Response: spontaneous(4). Motor Response: obeys commands(6). Verbal Response: bm8 oriented(5). Total: 15. 21:54 Eye Response: spontaneous(4). Motor Response: obeys commands(6). Verbal Response: bm8 oriented(5). Total: 15. ED Course: 16:56 Patient arrived in ED. ra3 16:59 Oracio Ugalde PA is PHCP. cp 16:59 Krunal Marshall MD is Attending Physician. cp 17:09 Triage completed. me1 17:09 Arm band placed on Patient placed in waiting room. me1 17:57 US Extremity Venous Unilateral Ltd In Process Unspecified. EDMS 17:57 Lower Extremity Artery Uni Ltd US In Process Unspecified. EDMS 18:03 Jake Chung, RN is Primary Nurse. bp 18:20 Patient has correct armband on for positive identification. Placed in gown. Bed in low aa5 position. Call light in reach. Side rails up X2. Pulse ox on. NIBP on. 18:28 Initial lab(s) drawn, by me, sent to lab. Inserted saline lock: 22 gauge in right hand, aa5 using aseptic technique. Blood collected. Flushed with 10 mL NS. 18:42 No provider procedures requiring assistance completed. aa5 18:58 Notified Nurse Practitioner and/or Physician Tester [employer] of a critical lab result(s), vc1 potassium 6.2. 19:01 Report given to [facility] RN and KASEY Navarrete. aa5 19:58 EKG done, by lead quality control technician. reviewed by Oracio BARON. oh1 20:30 Inserted saline lock: 20 gauge in right upper arm, using aseptic technique. ,using bm8 aseptic technique. ultrasound guided Flushed with 10 mL NS. 20:32 Oracio Min MD is Attending Physician. cp 20:41 Tony Nunez MD is Hospitalizing Provider. cp 21:54 Provided Education on: post er care. bm8 21:54 Patient admitted, IV remains in place. bm8 Administered Medications: 18:40 Drug: morphine IVP or IV 4 mg IVP once over 4 mins Route: IVP; Infused Over: 4 mins; aa5 Site: right hand; 19:18 Follow up: Response: No adverse reaction aa5 18:40 Drug: Ondansetron IVP 4 mg IVP once; over 2 minutes Route: IVP; Site: right hand; aa5 19:18 Follow up: Response: No adverse reaction aa5 20:48 Drug: Sodium Bicarbonate IVP 0.5 amp IVP once; (50 mL); equals 50 mEq Route: IVP; Site: 8 right hand; 21:07 Follow up: Response: No adverse reaction bm8 20:48 Drug: Calcium Gluconate IVPB 1 grams IVPB once over 15 mins; (mix in NS 100 mL) Route: bm8 IVPB; Infused Over: 15 mins; Site: right upper arm; 21:07 Follow up: Response: No adverse reaction; IV Status: Completed infusion; IV Intake: 41qobm5 20:48 Drug: Furosemide IVP 60 mg IVP once; give over 2 minutes Route: IVP; Site: right hand; bm8 21:07 Follow up: Response: No adverse reaction 8 20:49 Drug: Insulin Regular Human IVP 10 units IVP once {Co-Signature: vc1 (Elle Escamilla bm8 RN).} Route: IVP; Site: right hand; 21:07 Follow up: Response: No adverse reaction 8 20:49 Drug: D50W IVP 25 ml IVP once; (0.5 amp) Route: IVP; Site: right upper arm; bm8 21:07 Follow up: Response: No adverse reaction bm8 20:50 Drug: Albuterol Inhalation 2.5 mg Inhalation continuous x3 Route: Inhalation; bm8 20:50 Drug: Albuterol Inhalation 2.5 mg Inhalation continuous x3 Route: Inhalation; bm8 20:50 Drug: Kayexalate PO 30 grams PO once Route: PO; bm8 21:07 Follow up: Response: No adverse reaction bm8 20:50 Drug: morphine IVP or IV 4 mg IVP once over 4 mins Route: IVP; Infused Over: 4 mins; bm8 Site: right hand; 21:07 Follow up: Response: No adverse reaction bm8 20:51 Drug: Albuterol Inhalation 2.5 mg Inhalation continuous x3 Route: Inhalation; bm8 21:07 Follow up: Response: No adverse reaction bm8 20:58 Drug: HYDROmorphone IVP 1 mg IVP once Route: IVP; Site: right upper arm; bm8 21:06 Follow up: Response: No adverse reaction bm8 Medication: 18:41 VIS not applicable for this client. aa5 Intake: 21:07 IV: 50ml; Total: 50ml. bm8 Outcome: 20:42 Decision to Hospitalize by Provider. cp 21:54 Admitted to ER Hold. Please see [facility] for further documentation. bm8 21:54 Condition: stable 21:54 Instructed on follow up and referral plans. the need for admit, Demonstrated understanding of instructions, follow-up care, medications, 11/06 18:05 Patient left the ED. kc6 Signatures: Dispatcher [employer] EDPA Karen Marrero RN RN aa5 Oracio Ugalde PA PA cp Rehana Aguilar RN Jake Reyes RN KASEY bp Elle Escamilla RN RN vc1 Jayna Hassan RN RN kc6 Olga Dunham RN RN me1 Ella Reza ra3 Jamar Nettles Brad, RN RN bm8 Roma Rodríguez oh1 Elle Escamilla RN vc1 Corrections: (The following items were deleted from the chart) 11/05 17:28 17:06 Chief complaint: Patient states: right knee pain and swelling that started about me1 a week ago and has worsened the past few days. Went to urgent care and had an xray then was sent to ER due to pain level. Pain is 06/29. Denies injury me1 19:58 19:57 EKG done, by lead quality control technician. reviewed by Oracio BARON ty oh1
--- NOTE | 2024-11-05 20:42 | EDPHYS ---
Physician Documentation [facility] Name: Tan Marlow Age: 34 yrs Sex: Male : 1990 Arrival Date: 11/05/2024 Time: 16:52 Bed 27 Private MD: TYESHA Physician Oracio Min HPI: 11/05 17:15 This 34 yrs old Black Male presents to ER via Wheelchair with complaints of Right knee cp swelling. 17:15 The patient presents with pain, that is acute. The complaints affect the right knee. cp 17:15 Context: resulted from an unknown cause, the patient can partially bear weight, the cp patient is able to ambulate, with moderate difficulty, Problem is a result from a previous injury: No. 17:15 Onset: The symptoms/episode began/occurred 1 week(s) ago, and became worse past few cp days. 17:15 Associated signs and symptoms: Pertinent positives: swelling, sweats, Pertinent cp negatives fever. Historical: - Allergies: 17:09 Aspirin; me1 17:09 Bactrim; me1 17:09 Sulfa (Sulfonamide Antibiotics); me1 17:09 Vancomycin; me1 - PMHx: 17:09 diabetes mellitus; Hypertensive disorder; kidney disease; MWF Dialysis (kidney me1 disease); Seizure; - PSHx: 17:09 right foot; me1 - Immunization history:: Adult Immunizations up to date. - Infectious Disease History:: Denies. - Social history:: Smoking status: Patient denies any tobacco usage or history of. ROS: 17:20 Constitutional: Positive for sweats, Negative for body aches, fever, poor PO intake, cp 17:20 Cardiovascular: Negative for chest pain, palpitations, cp 17:20 Respiratory: Negative for cough, shortness of breath, wheezing, 17:20 Eyes: Negative for injury, pain, redness, and discharge, cp 17:20 ENT: Negative for drainage from ear(s), ear pain, sore throat, difficulty swallowing, cp difficulty handling secretions, 17:20 Abdomen/GI: Negative for abdominal pain, vomiting, diarrhea, constipation, 17:20 MS/extremity: Positive for pain, tenderness, of the right knee, Negative for injury or acute deformity, decreased range of motion, 17:20 Neuro: Negative for altered mental status, dizziness, headache, weakness, 17:20 All other systems are negative, Exam: 17:25 Constitutional: The patient appears in no acute distress, alert, awake, cp non-diaphoretic, non-toxic, well developed, well nourished, uncomfortable, 17:25 Head/Face: Normocephalic, atraumatic. cp 17:25 Eyes: Periorbital structures: appear normal, Conjunctiva: normal, no exudate, no injection, Sclera: no appreciated abnormality, Lids and lashes: appear normal, bilaterally, 17:25 ENT: External ear(s): are unremarkable, Nose: is normal, Mouth: Lips: moist, Oral mucosa: moist, Posterior pharynx: Airway: no evidence of obstruction, patent, 17:25 Chest/axilla: Inspection: normal, 17:25 Cardiovascular: Rate: normal, Rhythm: regular, Edema: ankle edema, that is mild, JVD: is not appreciated, 17:25 Respiratory: the patient does not display signs of respiratory distress, Respirations: normal, no use of accessory muscles, no retractions, labored breathing, is not present, Breath sounds: are clear throughout, no decreased breath sounds, no stridor, no wheezing, 17:25 Abdomen/GI: Exam negative for discomfort, distension, guarding, Inspection: abdomen appears normal, 17:25 Back: pain, is absent, ROM is normal, 17:25 Musculoskeletal/extremity: Extremities: noted in the right knee: pain, medial side tenderness on exam, mild medial side swelling, There is no evidence of decreased ROM, deformity, noted in the right foot: open wound noted lateral side plantar surface of right foot with no drainage expressed, ROM: mild pain with passive flexion and extension of right knee, 17:25 Neuro: Orientation: to person, place \T\ time. Mentation: is normal, 19:42 ECG was reviewed by the Attending Physician. cp Vital Signs: 17:06 BP 172 / 91; Pulse 64; Resp 17; Temp 98.4; Pulse Ox 99% ; Weight 74.84 kg; Height 5 ft. me1 6 in. ; Pain 10/10; 18:30 BP 172 / 106; Pulse 71; Resp 19 S; Pulse Ox 100% on R/A; aa5 19:16 BP 154 / 99; Pulse 66; Resp 18; Temp 98.1; Pulse Ox 100% ; Pain 8/10; aa5 20:59 BP 165 / 96; Pulse 66; Resp 18; Temp 98.1; Pulse Ox 100% ; Pain 5/10; bm8 21:54 BP 147 / 82; Pulse 69; Resp 17; Temp 98.1; Pulse Ox 100% ; Pain 4/10; bm8 17:06 Body Mass Index 26.63 (74.84 kg, 167.64 cm) me1 17:06 Pain Scale: Adult me1 19:16 Pain Scale: Adult aa5 20:59 Pain Scale: Adult bm8 21:54 Pain Scale: Adult bm8 [place] Coma Score: 19:16 Eye Response: spontaneous(4). Motor Response: obeys commands(6). Verbal Response: aa5 oriented(5). Total: 15. 20:59 Eye Response: spontaneous(4). Motor Response: obeys commands(6). Verbal Response: bm8 oriented(5). Total: 15. 21:54 Eye Response: spontaneous(4). Motor Response: obeys commands(6). Verbal Response: bm8 oriented(5). Total: 15. MDM: 17:13 Medical Screening Exam initiated cp 18:00 Differential diagnosis: dislocation, closed fracture, contusion, fracture, septic cp joint, osteomyelitis, sepsis. 20:45 Data reviewed: vital signs, nurses notes, lab test result(s), EKG, radiologic studies, cp ultrasound, and as a result, I will admit patient. 20:45 Management of patient was discussed with the following: Hospitalist: Patrice Sharp NP cp will admit to hospitalist services after discussion. Consult with on-call nephrology for DR Oneal. 11/05 17:13 Order name: CBC with Diff; Complete Time: 19:00 cp 11/05 19:00 Interpretation: Normal except: HGB 12.7; HCT 39.3; RDW 17.2. cp 11/05 17:13 Order name: CMP; Complete Time: 17:08 cp 11/05 19:01 Interpretation: Normal except: NA 133; K 6.2; CO2 20; ANION GAP 15.2; GLUC 227; BUN 61; cp CRE 10.50; GFR 6; ALK 157; CA 7.5; TP 9.6; GLOB 5.7; A/G 0.7. 11/05 17:13 Order name: PT-INR; Complete Time: 19:00 cp 11/05 17:13 Order name: Ptt, Activated; Complete Time: 19:00 cp 11/05 17:13 Order name: CRP; Complete Time: 17:08 cp 11/05 19:01 Interpretation: Abnormal: C-REACTIVE PROT 6.95. cp 11/05 17:13 Order name: Lactate w/ 2H reflex if indic.; Complete Time: 19:00 cp 11/05 20:27 Order name: Uric Acid la1 11/05 22:41 Order name: Uric Acid; Complete Time: 17:08 EDMS 11/05 23:16 Order name: Glucose, Ancillary Testing; Complete Time: 17:08 EDMS 11/06 03:20 Order name: Glucose, Ancillary Testing; Complete Time: 17:08 EDMS 11/06 05:32 Order name: CBC with Automated Diff; Complete Time: 17:08 EDMS 11/06 05:55 Order name: Basic Metabolic Panel; Complete Time: 17:08 EDMS 11/06 07:36 Order name: Glucose, Ancillary Testing; Complete Time: 17:08 EDMS 11/06 11:25 Order name: Glucose, Ancillary Testing; Complete Time: 17:08 EDMS 11/06 17:25 Order name: Glucose, Ancillary Testing EDMS 11/05 17:12 Order name: US Extremity Venous Unilateral Ltd; Complete Time: 19:00 cp 11/05 17:14 Order name: Lower Extremity Artery Uni Ltd US; Complete Time: 19:00 cp 11/06 12:48 Order name: RAD; Complete Time: 17:08 EDMS 11/05 19:02 Order name: EKG; Complete Time: 19:03 cp 11/05 17:12 Order name: IV; Complete Time: 18:28 cp 11/05 19:02 Order name: EKG - Nurse/Tech; Complete Time: 19:57 cp EC:42 Rate is 65 beats/min. Rhythm is regular. IA interval is prolonged at 214 msec. QRS cp interval is prolonged at 126 msec. QT interval is normal. T waves are Inverted in leads III, aVF, aVR. Interpreted by me. Reviewed by me. Administered Medications: 18:40 Drug: morphine IVP or IV 4 mg IVP once over 4 mins Route: IVP; Infused Over: 4 mins; aa5 Site: right hand; 19:18 Follow up: Response: No adverse reaction aa5 18:40 Drug: Ondansetron IVP 4 mg IVP once; over 2 minutes Route: IVP; Site: right hand; aa5 19:18 Follow up: Response: No adverse reaction aa5 20:48 Drug: Sodium Bicarbonate IVP 0.5 amp IVP once; (50 mL); equals 50 mEq Route: IVP; Site: bm8 right hand; 21:07 Follow up: Response: No adverse reaction bm8 20:48 Drug: Calcium Gluconate IVPB 1 grams IVPB once over 15 mins; (mix in NS 100 mL) Route: bm8 IVPB; Infused Over: 15 mins; Site: right upper arm; 21:07 Follow up: Response: No adverse reaction; IV Status: Completed infusion; IV Intake: [id number] 20:48 Drug: Furosemide IVP 60 mg IVP once; give over 2 minutes Route: IVP; Site: right hand; bm8 21:07 Follow up: Response: No adverse reaction bm8 20:49 Drug: Insulin Regular Human IVP 10 units IVP once {Co-Signature: vc1 (Elle Escamilla bm8 RN).} Route: IVP; Site: right hand; 21:07 Follow up: Response: No adverse reaction bm8 20:49 Drug: D50W IVP 25 ml IVP once; (0.5 amp) Route: IVP; Site: right upper arm; bm8 21:07 Follow up: Response: No adverse reaction bm8 20:50 Drug: Albuterol Inhalation 2.5 mg Inhalation continuous x3 Route: Inhalation; bm8 20:50 Drug: Albuterol Inhalation 2.5 mg Inhalation continuous x3 Route: Inhalation; bm8 20:50 Drug: Kayexalate PO 30 grams PO once Route: PO; bm8 21:07 Follow up: Response: No adverse reaction bm8 20:50 Drug: morphine IVP or IV 4 mg IVP once over 4 mins Route: IVP; Infused Over: 4 mins; bm8 Site: right hand; 21:07 Follow up: Response: No adverse reaction bm8 20:51 Drug: Albuterol Inhalation 2.5 mg Inhalation continuous x3 Route: Inhalation; bm8 21:07 Follow up: Response: No adverse reaction bm8 20:58 Drug: HYDROmorphone IVP 1 mg IVP once Route: IVP; Site: right upper arm; bm8 21:06 Follow up: Response: No adverse reaction bm8 Disposition Summary: 11/05/24 20:42 Hospitalization Ordered Notes: Hospitalization Status: Inpatient Admission cp Provider: Tony Nunez cp Condition: Stable cp Problem: new cp Symptoms: have improved cp Bed/Room Type: Standard cp Location: [facility] ER HOLD(11/06/24 15:37) Room Assignment: ERHOLD-(11/06/24 15:37) Diagnosis - Hyperkalemia cp - Hypertensive heart and chronic kidney disease without heart failure, with stage 5 cp chronic kidney disease, or end stage renal disease - Pain in right knee cp Forms: - Medication Reconciliation Form cp - SBAR form cp - Leadership Thank You Letter cp Signatures: Dispatcher [employer] EDMS Carmelita Villanueva Audri, RN RN aa5 Aga Hector RN RN ss Patrice Sharp, MINE CAR DISPATCHER-C MINE CAR DISPATCHER-Cla1 Oracio Ugalde PA PA cp Elle Escamilla RN RN vc1 Olga Dunham RN RN me1 [facility] Maldonado RN RN bm8 Elle Escamilla RN vc1 Corrections: (The following items were deleted from the chart) 17:13 17:13 CBC+H.LAB.BRZ ordered. EDMS EDMS 17:13 17:13 COMPREHENSIVE METABOLIC PANEL+C.LAB.BRZ ordered. EDUT EDMS 17:13 17:13 PROTIME (+INR)+COAG.LAB.BRZ ordered. EDMS EDMS 17:13 17:13 PTT, ACTIVATED+COAG.LAB.BRZ ordered. EDMS EDMS 17:13 17:13 C-REACTIVE PROTEIN+C.LAB.BRZ ordered. EDMS EDMS 17:13 17:13 LACTATE+C.LAB.BRZ ordered. EDUT EDMS 18:01 17:13 Knee Right 3 View+RAD.RAD.BRZ ordered. EDUT EDMS 21:14 20:42 Telemetry/MedSurg (Inpatient) cp vc1 21:14 20:42 cp vc1 11/06 03:41 11/05 17:15 Onset: The symptoms/episode began/occurred 1 week(s) ago, and became worse cp cp 11/06 14:46 02/16 21:14 [facility] ER HOLD vc1 bd 11/06 14:46 02 21:14 ERHOLD- vc1 11/06 15:37 14:46 [facility] 15:37 14:46 [facility]
[2024-11-05] MEDS ORDERED: HYDROMORPHONE HCL 1 MG/ML INJ ONE (20:52)
--- NOTE | 2024-11-05 21:16 | P.HP ---
Certification for Inpatient Patient admitted to: Observation With expected LOS: <2 Midnights Patient will require the following post-hospital care: None Practitioner: I am a practitioner with admitting privileges, knowledge of patient current condition, hospital course, and medical plan of care. Services: Services provided to patient in accordance with Admission requirements found in Title 42 Section 412.3 of the Code of Federal Regulations Patient History Date of Service: 11/05/24 Reason for admission: Hyperkalemia History of Present Illness: 34-year-old male with history of ESRD on HD MWF, insulin-dependent diabetes, recent seizures with hypoglycemia, hypertension presents to the emergency department chief complaint of right knee pain. He reports right knee pain that started about a week and a half ago and has been progressively getting worse. He says the last 1 to 2 days have been severe affecting his ability to ambulate, he went to urgent care today and had an x-ray which was essentially negative but due to his severe pain they referred him to the emergency department for further evaluation and management. Patient was evaluated in the emergency department he had a DVT study of the right leg which was negative as well as an arterial ultrasound which showed monophasic popliteal arterial waveform which medicate moderate distal christopher perficial femoral artery stenosis. He has 2+ palpable DP and PT pulses. CRP was 6.95, lactic acid was 1.2, afebrile with a white blood cell count of 9, no pain with passive range of motion when leg is in natural alignment, with any varus or valgus flexion he does have pain to the medial aspect of his right knee, no large effusion is present. No known history of gout, uric acid level ordered and pending. Additionally on his labs he was found to have hyperkalemia with a potassium of 6.2 sodium 133 bicarb of 20, ED staff spoke with nephrology service, he was given medications to bring down his potassium acutely in the ED and nephrology will see patient in the hospital. Patient will be admitted for further evaluation and management of his hyperkalemia, right knee pain. Allergies aspirin Adverse Reaction (Verified 06/03/24 21:06) Hives/Rash Sulfa (Sulfonamide Antibiotics) Adverse Reaction (Verified 06/03/24 21:07) Hives/Rash sulfamethoxazole [From Bactrim] Adverse Reaction (Verified 06/03/24 21:07) Hives/Rash trimethoprim [From Bactrim] Adverse Reaction (Verified 06/03/24 21:07) Hives/Rash vancomycin Adverse Reaction (Verified 06/03/24 21:07) Hives/Rash Home Medications: Atorvastatin Calcium 40 mg PO BEDTIME 06/03/24 Insulin Aspart [Novolog Flexpen] See Protocol SQ ACHS 06/03/24 Metoprolol Succinate 2 tab PO DAILY 06/03/24 Ferrous Sulfate 325 mg PO DAILY 30 Days #30 tab 06/10/24 Losartan Potassium [Cozaar*] 50 mg PO BID 30 Days #60 tab 06/10/24 Hydralazine [Apresoline*] 100 mg PO TID 07/18/24 Furosemide 40 mg PO DAILY 09/05/24 Furosemide [Lasix*] 20 mg PO BEDTIME 09/05/24 Gabapentin [Neurontin*] 100 mg PO BID 10/23/24 Hydrocodone Bit/Acetaminophen [Hydrocodon-Acetaminophen 5-325] 1 tab PO PRN PRN 10/23/24 Docusate [Colace Cap*] 100 mg PO BID #60 cap 10/24/24 Epoetin [Procrit*] 10,000 unit IV EVERY HD vial 10/24/24 Heparin [Heparin 1,000 units/mL *] 3,000 unit IV EVERY HD PRN vial 10/24/24 Heparin [Heparin 1,000 units/mL *] 6,000 unit IV EVERY HD PRN vial 10/24/24 Levetiracetam [Keppra] 250 mg PO BID #60 tab 10/24/24 Mannitol 25% [Mannitol*] 12.5 gm IV EVERY HD PRN vial 10/24/24 Sevelamer Carbonate [Renvela*] 800 mg PO TIDWM #90 tab 10/24/24 calcitrioL [Calcitriol] 0.5 mcg PO DAILY #30 cap 10/24/24 - Past Medical/Surgical History Diabetic: Yes -: HTN -: DM I with CKD, Polyneuropathy & Retinopathy -: ESRD on HD (Dr. Oneal/ [facility]) -: Anemia -: Incision right foot Psychosocial/ Personal History: Lives at home with family - Family History Father -: Heart disease, Diabetes, Stroke, Kidney disease Notes: DM. CHF Mother -: Diabetes, Kidney disease Notes: Dementia showing early on set - Social History Alcohol use: No CD- Drugs: No Caffeine use: Yes Place of Residence: Home Review of Systems 10-point ROS is otherwise unremarkable Musculoskeletal: Leg Pain (Right knee painmedial) Physical Examination - Physical Exam General: Alert, In no apparent distress, Oriented x3 HEENT: Atraumatic, PERRLA, Mucous membr. moist/pink Neck: Supple, 2+ carotid pulse no bruit, No LAD Respiratory: Clear to auscultation bilaterally, Normal air movement Cardiovascular: Regular rate/rhythm, Normal S1 S2 Gastrointestinal: Normal bowel sounds, No tenderness Musculoskeletal: Other (No pain with passive range of motion of right knee, pain with weightbearing/active range of motion) Integumentary: No rashes Neurological: Normal speech, Normal strength at 5/5 x4 extr, Normal tone - Studies Laboratory Data (last 24 hrs) 11/05/24 11/05/24 11/05/24 18:27 18:27 18:27 WBC 9.00 Hgb 12.7 L Hct 39.3 L Plt Count 317 PT 12.2 INR 1.16 APTT 36.8 Sodium 133 L Potassium 6.2 H* BUN 61 H Creatinine 10.50 H Glucose 227 H Total Bilirubin 0.4 AST 30 ALT 45 Alkaline Phosphatase 157 H Assessment and Plan - Plan Assessment: ESRD on HD MWF with hyperkalemia Diabetes mellitus type 1 with hyperglycemia Hypertension Recent seizures likely related to hypoglycemia Right knee pain Plan: ESRD on HD MWF with hyperkalemia Potassium 6.2 initially, ED spoke with nephrology Given potassium cocktail in ED Plan for inpatient HD Diabetes mellitus type 1 with hyperglycemia ACHS Accu-Chek, sliding scale insulin Takes 10 units of Lantus twice daily as well as sliding scale at home Hypertension Continue home medications when verified Recent seizures likely related to hypoglycemia Reportedly has seizures likely related to hypoglycemia but was started on Keppra Resume Keppra when doses verified Right knee pain CRP not very high, white blood cell count normal, no fevers, no pain with passive range of motion doubt septic arthritis Uric acid level ordered as well Possibly musculoskeletal, pain primarily in the medial part of the right knee with varus/valgus motions As needed pain medications, PT, consider Ortho consult Venous and arterial Dopplers without significant findings-possibly some moderate right SFA stenosis Had x-ray urgent care just before presentation to hospital-will repeat as records are unavailable DVT PPX: Heparin subcu Code status: Full Discharge Plan: Home Plan to discharge in: 24 Hours - Advance Directives Does patient have a Living Will: No Does patient have a Durable POA for Healthcare: No - Code Status/Comfort Care Code Status Assessed: Yes (Full code) Critical Care: No Time Spent Managing Pts Care (In Minutes): 64
[2024-11-05] MEDS: HEPARIN 5000 UNIT/ML 1 ML VIAL SQ SCH (22:11)
[2024-11-05 22:41] LABS: Uric Acid 5.7 mg/dL (3.5-7.2)
[2024-11-05] MEDS ORDERED: HEPARIN 5000 UNIT/ML 1 ML VIAL ONE (22:46)
[2024-11-05] MEDS: D50W 25 GM/50 ML SYRINGE IV ONE (23:05)
[2024-11-05] MEDS: PROMETHAZINE INJ 25 MG/ML AMP IV ONE (23:23)
[2024-11-05] MEDS ORDERED: PROMETHAZINE INJ 25 MG/ML AMP ONE (23:25)
[2024-11-06 02:37] VITALS: BMI 26.6
[2024-11-06] MEDS: PROMETHAZINE INJ 25 MG/ML AMP IV ONE (05:05)
[2024-11-06] MEDS ORDERED: HYDROCODONE/APAP 5/325 MG TAB ONE (05:12)
[2024-11-06] MEDS ORDERED: PROMETHAZINE INJ 25 MG/ML AMP ONE (05:12)
[2024-11-06] MEDS: HYDROCODONE/APAP 5/325 MG TAB PO PRN (05:20)
[2024-11-06 05:30] LABS: Absolute Basophils 0.1 K/uL (0-0.5); Absolute Eosinophils 0.4 K/uL (0-0.5); Absolute Monocytes 0.8 K/uL (0.1-1.3); Absolute Neutrophil 5.6 K/uL (1.8-8.0); Basophils % 0.8 % (0-1.3); Hemoglobin 11.1 g/dL (13.6-17.9); MCH 28.3 pg (27.0-35.0); MCHC 31.7 g/dL (32.0-36.0); MCV 89.4 fL (80-100); MPV 7.9 fL (7.6-11.3); Monocytes % 9.3 % (3.3-12.3); Neutrophils % 62.9 % (41.7-73.7); Nucleated Red Blood Cells % 0.1 % (0-0); Platelets 293 thou/uL (152-406); RBC Red Blood Cell Count 3.92 M/uL (4.33-5.43); Red Cell Distribution Width 17.2 % (12.1-15.2)
[2024-11-06 05:53] LABS: Anion Gap 12.5 mEq/L (5.0-15.0); Potassium 5.5 mEq/L (3.5-5.1)
[2024-11-06 07:34] VITALS: TEMP 98.2
[2024-11-06] MEDS ORDERED: HEPARIN 5000 UNIT/ML 1 ML VIAL ONE (07:41)
[2024-11-06] MEDS ORDERED: HYDROMORPHONE HCL 0.5 MG/0.5 ML INJ ONE ×2 (08:19→17:14)
[2024-11-06] MEDS: HYDROMORPHONE HCL 1 MG/ML INJ IV PRN (08:25)
[2024-11-06 09:57] VITALS: O2SAT 99
[2024-11-06 11:12] VITALS: BP 152/94
[2024-11-06] MEDS: SEVELAMER CARBONATE 800 MG TABLET PO SCH (11:57)
--- NOTE | 2024-11-06 12:48 | RAD REPORT ---
EXAM: XR Knee Right 3 View HISTORY: [facility] MAIN medial knee pain COMPARISON: None TECHNIQUE: 3 views of the right knee were obtained. FINDINGS: No knee effusion is seen. There is no evidence of acute fracture or dislocation. No signif icant degenerative changes are seen. No soft tissue swelling. Vascular calcifications. IMPRESSION: No evidence of acute osseous abnormality.
[2024-11-06] MEDS: cloNIDine HCL 0.1 MG TAB PO SCH (14:00)
--- NOTE | 2024-11-06 15:21 | P.DS ---
Admission Date: 11/05/24 Discharge Date: 11/06/24 Disposition: ROUTINE DISCHARGE Discharge Condition: GOOD Reason for Admission: Hyperkalemia Brief History of Present Illness: Diagnosis ESRD on HD MWF with hyperkalemia Diabetes mellitus type 1 with hyperglycemia Hypertension Recent seizures likely related to hypoglycemia Right knee pain HPI 11/05/24 Tan Marlow is a 34-year-old male with history of ESRD on HD MWF, insulin- dependent diabetes, recent seizures with hypoglycemia, hypertension presents to the emergency department chief complaint of right knee pain. He reports right knee pain that started about a week and a half ago and has been progressively getting worse. He says the last 1 to 2 days have been severe affecting his ability to ambulate, he went to urgent care today and had an x-ray which was essentially negative but due to his severe pain they referred him to the emergency department for further evaluation and management. Patient was evaluated in the emergency department he had a DVT study of the right leg which was negative as well as an arterial ultrasound which showed monophasic popliteal arterial waveform which medicate moderate distal superficial femoral artery stenosis. He has 2+ palpable DP and PT pulses. CRP was 6.95, lactic acid was 1.2, afebrile with a white blood cell count of 9, no pain with passive range of motion when leg is in natural alignment, with any varus or valgus flexion he does have pain to the medial aspect of his right knee, no large effusion is present. No known history of gout, uric acid level ordered and pending. Additionally on his labs he was found to have hyperkalemia with a potassium of 6.2 sodium 133 bicarb of 20, ED staff spoke with nephrology service, he was given medications to bring down his potassium acutely in the ED and nephrology will see patient in the hospital. Patient will be admitted for further evaluation and management of his hyperkalemia, right knee pain. Hospital Course: Patient was admitted and treated for the following diagnosis ESRD on HD MWF with hyperkalemia Potassium 6.[address] Oneal consulted, Tolerated inpatient HD Given potassium cocktail in ED with improvement to potassium level Diabetes mellitus type 1 with hyperglycemia ACHS Accu-Chek, sliding scale insulin Continued home medications Hypertension Continued home medications as appropriate Recent seizures likely related to hypoglycemia Reportedly has seizures likely related to hypoglycemia but was started on Keppra Resume Keppra when doses verified Right knee pain CRP not very high, white blood cell count normal, no fevers, no pain with passive range of motion doubt septic arthritis Uric acid 5.7 Possibly musculoskeletal, pain primarily in the medial part of the right knee with varus/valgus motions Pain control, PT, follow up with Orthopedic outpatient Venous and arterial Dopplers without significant findings-possibly "Monophasic popliteal arterial waveform may indicate a moderate distal superficial femoral arterial stenosis." Had x-ray urgent care just before presentation to hospital-Repeat xray reports "No evidence of acute osseous abnormality, vascular calcificaitons." Follow up with Dr. Velasco outpatient On 11/06/24, Tan was seen on morning rounds and deemed hemodynamically stable. Dr. Oneal evaluated and cleared Tan for discharge. Tramadol prescribed. Follow up with PCP, Dr. Oneal, Dr. Velasco, and Dr. Tee for follow up appointments. Physical Exam General: Alert and Oriented x3, NAD HEENT: Atraumatic, PERRLA, Mucous membr. moist/pink Neck: Supple, 2+ carotid pulse no bruit, No LAD Respiratory: Clear BBS, Normal air movement, on RA Cardiovascular: NSR, Normal S1 S2 Gastrointestinal: Normal bowel sounds, No tenderness Musculoskeletal: Other (No pain with passive range of motion of right knee, pain with weightbearing/active range of motion) Integumentary: No rashes Neurological: Normal speech, Normal strength at 5/5 x4 extr, Normal tone Vital Signs/Physical Exam: Temp Pulse Resp BP Pulse Ox 98.2 F 66 16 152/94 H 100 11/06/24 07:34 11/06/24 11:11 11/06/24 11:11 11/06/24 11:11 11/06/24 11:11 Laboratory Data at Discharge: WBC 8.90 thou/uL (4.3-10.9) 11/06/24 05:00 Hgb 11.1 g/dL (13.6-17.9) L D 11/06/24 05:00 Hct 35.0 % (39.6-49.0) L 11/06/24 05:00 Plt Count 293 thou/uL (152-406) 11/06/24 05:00 PT 12.2 SECONDS (9.4-12.5) 11/05/24 18:27 INR 1.16 11/05/24 18:27 APTT 36.8 SECONDS (24.3-36.9) 11/05/24 18:27 Sodium 138 mEq/L (136-145) D 11/06/24 05:00 Potassium 5.5 mEq/L (3.5-5.1) H 11/06/24 05:00 BUN 68 mg/dL (7-18) H 11/06/24 05:00 Creatinine 11.30 mg/dL (0.70-1.30) H 11/06/24 05:00 Glucose 139 mg/dL (74-106) H 11/06/24 05:00 Uric Acid Cancelled 11/05/24 20:27 Total Bilirubin 0.4 mg/dL (0.2-1.0) 11/05/24 18:27 AST 30 U/L (15-37) 11/05/24 18:27 ALT 45 U/L (16-61) 11/05/24 18:27 Alkaline Phosphatase 157 U/L (45-117) H 11/05/24 18:27 Home Medications: Atorvastatin Calcium 40 mg PO BEDTIME 06/03/24 Insulin Aspart [Novolog Flexpen] See Protocol SQ ACHS 06/03/24 Metoprolol Succinate 2 tab PO DAILY 06/03/24 Ferrous Sulfate 325 mg PO DAILY 30 Days #30 tab 06/10/24 Losartan Potassium [Cozaar*] 50 mg PO BID 30 Days #60 tab 06/10/24 Hydralazine [Apresoline*] 100 mg PO BID 07/18/24 Furosemide 40 mg PO DAILY 09/05/24 Furosemide [Lasix*] 20 mg PO BEDTIME 09/05/24 Gabapentin [Neurontin*] 100 mg PO BID 10/23/24 Hydrocodone Bit/Acetaminophen [Hydrocodon-Acetaminophen 5-325] 1 tab PO PRN PRN 10/23/24 Docusate [Colace Cap*] 100 mg PO BID #60 cap 10/24/24 Epoetin [Procrit*] 10,000 unit IV EVERY HD vial 10/24/24 Heparin [Heparin 1,000 units/mL *] 3,000 unit IV EVERY HD PRN vial 10/24/24 Heparin [Heparin 1,000 units/mL *] 6,000 unit IV EVERY HD PRN vial 10/24/24 Mannitol 25% [Mannitol*] 12.5 gm IV EVERY HD PRN vial 10/24/24 Sevelamer Carbonate [Renvela*] 800 mg PO TIDWM #90 tab 10/24/24 calcitrioL [Calcitriol] 0.5 mcg PO DAILY #30 cap 10/24/24 Bumetanide 2 mg PO BID 11/06/24 Levetiracetam [Keppra] 250 mg PO DAILY 11/06/24 Quetiapine Fumarate [Seroquel] 50 mg PO DAILY 11/06/24 buPROPion HCL [Bupropion Xl] 150 mg PO DAILY 11/06/24 cloNIDine HCL [Clonidine HCl] 0.1 mg PO TID 11/06/24 traMADol HCL [Ultram*] 50 mg PO Q6H PRN 5 Days #15 tab 11/06/24 New Medications: traMADol HCL [Ultram*] 50 mg PO Q6H PRN 5 Days #15 tab PRN Reason: Pain Physician Discharge Instructions: 1. Please call and schedule a follow-up appointment with your PCP in 3-5 days - Please follow-up with your PCP for medication refills/adjustments 2. Please call and schedule a follow-up appointment with Dr. Oneal in 3-5 days 3. Please call and schedule a follow-up appointment with Dr. Tee in one week -further evaluation of right knee, two xrays with no acute findings 4. Please call and schedule a follow-up with Dr. Velasco in one week, vascular surgeon -Further investigation and monitoring of right extremity stenosis -Moderate superficial femoral arterial stenosis 5. Continue Renal/diabetic diet 6. activity restrictions Fall precautions 7. Return to the ED if symptoms worsen New medications Tramadol 50 mg Q 6 x 15 doses Diet: Renal Activity: Fall precautions Followup: Javon Oneal DO [Primary Care Provider] - Maksim Tee MD [ACTIVE - CAN ADMIT] - Erica Velasco MD [ACTIVE - CAN ADMIT] -
--- NOTE | 2024-11-06 19:30 | P.CNS ---
Date of Consult: 11/06/24 Reason for Consult: ESRD Requesting Physician: Tony Nunez Chief Complaint: Hyperkalemia History of Present Illness: 34-year-old male with history of ESRD on HD MWF, insulin-dependent diabetes, recent seizures with hypoglycemia, hypertension presents to the emergency department chief complaint of right knee pain. He reports right knee pain that started about a week and a half ago and has been progressively getting worse. He says the last 1 to 2 days have been severe affecting his ability to ambulate, he went to urgent care today and had an x-ray which was essentially negative but due to his severe pain they referred him to the emergency department for further evaluation and management. Patient was evaluated in the emergency department he had a DVT study of the right leg which was negative as well as an arterial ultrasound which showed monophasic popliteal arterial waveform which medicate moderate distal superficial femoral artery stenosis. He has 2+ palpable DP and PT pulses. CRP was 6.95, lactic acid was 1.2, afebrile with a white blood cell count of 9, no pain with passive range of motion when leg is in natural alignment, with any varus or valgus flexion he does have pain to the medial aspect of his right knee, no large effusion is present. No known history of gout, uric acid level ordered and pending. Additionally on his labs he was found to have hyperkalemia with a potassium of 6.2 sodium 133 bicarb of 20, ED staff spoke with nephrology service, he was given medications to bring down his potassium acutely in the ED and nephrology will see patient in the hospital. Patient will be admitted for further evaluation and management of his hyperkalemia, right knee pain. [id number] 17:15 This 34 yrs old Black Male presents to ER via Wheelchair with complaints of Right knee cp swelling. 17:15 The patient presents with pain, that is acute. The complaints affect the right knee. cp 17:15 Context: resulted from an unknown cause, the patient can partially bear weight, the cp patient is able to ambulate, with moderate difficulty, Problem is a result from a previous injury: No. 17:15 Onset: The symptoms/episode began/occurred 1 week(s) ago, and became worse past few cp days. 17:15 Associated signs and symptoms: Pertinent positives: swelling, sweats, Pertinent cp negatives fever. Allergies aspirin Adverse Reaction (Verified 06/03/24 21:06) Hives/Rash Sulfa (Sulfonamide Antibiotics) Adverse Reaction (Verified 06/03/24 21:07) Hives/Rash sulfamethoxazole [From Bactrim] Adverse Reaction (Verified 06/03/24 21:07) Hives/Rash trimethoprim [From Bactrim] Adverse Reaction (Verified 06/03/24 21:07) Hives/Rash vancomycin Adverse Reaction (Verified 06/03/24 21:07) Hives/Rash Home medications list reviewed: Yes Home Medications: Atorvastatin Calcium 40 mg PO BEDTIME 06/03/24 Insulin Aspart [Novolog Flexpen] See Protocol SQ ACHS 06/03/24 Metoprolol Succinate 2 tab PO DAILY 06/03/24 Ferrous Sulfate 325 mg PO DAILY 30 Days #30 tab 06/10/24 Losartan Potassium [Cozaar*] 50 mg PO BID 30 Days #60 tab 06/10/24 Hydralazine [Apresoline*] 100 mg PO BID 07/18/24 Furosemide 40 mg PO DAILY 09/05/24 Furosemide [Lasix*] 20 mg PO BEDTIME 09/05/24 Gabapentin [Neurontin*] 100 mg PO BID 10/23/24 Hydrocodone Bit/Acetaminophen [Hydrocodon-Acetaminophen 5-325] 1 tab PO PRN PRN 10/23/24 Docusate [Colace Cap*] 100 mg PO BID #60 cap 10/24/24 Epoetin [Procrit*] 10,000 unit IV EVERY HD vial 10/24/24 Heparin [Heparin 1,000 units/mL *] 3,000 unit IV EVERY HD PRN vial 10/24/24 Heparin [Heparin 1,000 units/mL *] 6,000 unit IV EVERY HD PRN vial 10/24/24 Mannitol 25% [Mannitol*] 12.5 gm IV EVERY HD PRN vial 10/24/24 Sevelamer Carbonate [Renvela*] 800 mg PO TIDWM #90 tab 10/24/24 calcitrioL [Calcitriol] 0.5 mcg PO DAILY #30 cap 10/24/24 Bumetanide 2 mg PO BID 11/06/24 Levetiracetam [Keppra] 250 mg PO DAILY 11/06/24 Quetiapine Fumarate [Seroquel] 50 mg PO DAILY 11/06/24 buPROPion HCL [Bupropion Xl] 150 mg PO DAILY 11/06/24 cloNIDine HCL [Clonidine HCl] 0.1 mg PO TID 11/06/24 traMADol HCL [Ultram*] 50 mg PO Q6H PRN 5 Days #15 tab 11/06/24 - Past Medical/Surgical History Diabetic: Yes -: HTN -: DM I with CKD, Polyneuropathy & Retinopathy -: ESRD on HD (Dr. Oneal/ [facility]) -: Anemia -: PAD -: Incision right foot Psychosocial/ Personal History: Lives at home with family - Family History Father Medical History: Heart disease, Diabetes, Stroke, Kidney disease Notes: DM. CHF Mother Medical History: Diabetes, Kidney disease Notes: Dementia showing early on set - Social History Smoking Status: Unknown if ever smoked Alcohol use: No CD- Drugs: No Caffeine use: Yes Place of Residence: Home Review of Systems 10-point ROS is otherwise unremarkable General: Weakness, Malaise Musculoskeletal: Leg Pain Physical Examination Temp Pulse Resp BP Pulse Ox 98.2 F 66 18 152/94 H 100 11/06/24 07:34 11/06/24 11:11 11/06/24 17:17 11/06/24 11:11 11/06/24 17:17 General: In no apparent distress, Oriented x3, Cooperative HEENT: Atraumatic Neck: Supple Respiratory: Clear to auscultation bilaterally Cardiovascular: No edema, Regular rate/rhythm Gastrointestinal: Soft and benign, Non-distended Musculoskeletal: No clubbing, No contractures Integumentary: No rashes, No cyanosis Neurological: Normal speech Laboratory Data (last 24 hrs) 11/05/24 11/05/24 20:27 18:27 Sodium 133 L Potassium 6.2 H* BUN 61 H Creatinine 10.50 H Glucose 227 H Uric Acid Cancelled 5.7 Total Bilirubin 0.4 AST 30 ALT 45 Alkaline Phosphatase 157 H Imagings Data: [id number] EXAM: XR Knee Right 3 View HISTORY: [facility] MAIN medial knee pain COMPARISON: None TECHNIQUE: 3 views of the right knee were obtained. FINDINGS: No knee effusion is seen. There is no evidence of acute fracture or dislocation. No significant degenerative changes are seen. No soft tissue swelling. Vascular calcifications. IMPRESSION: No evidence of acute osseous abnormality. [id number] EXAM:Lower Extremity Artery [employer] HISTORY: Right eg pain TECHNIQUE: Sonographic evaluation lower extremity arteries performed.Grayscale, color and spectral analysis performed on all vessels COMPARISON: None. FINDINGS: Right common femoral, superficial femoral and popliteal arterial waveforms are triphasic Popliteal and posterior tibial and dorsalis pedis arterial waveforms are monoph asic. IMPRESSION: Monophasic popliteal arterial waveform may indicate a moderate distal superficial femoral arterial stenosis [id number] EXAM:Extremity Venous [employer] HISTORY: Right leg pain TECHNIQUE: Sonographic evaluation right lower extremity performed.Grayscale, color and spectral analysis performed on all vessels COMPARISON: None. FINDINGS: Right common femoral, superficial femoral, greater saphenous, popliteal and posterior tibial veins are compressible and demonstrate augmentation. Doppler demonstrates good flow. IMPRESSION: No evidence of deep venous thrombosis involving the right lower extremity. Conclusions/Impression: ESRD on HD -Acute HD today -Seen and examined on HD Hyperkalemia -Kayexalate as ordered -Acute HD HTN with CKD -Continue Losartan -Continue Metoprolol DM I with CKD -RISS Anemia in CKD -Retacrit prn CKD MBD Secondary HyperParathyroidism -Start Ergo in the AM PAD -Continue Lipitor Case reviewed with hospitalist team Thank you kindly for the consultation
[2024-11-06] MEDS ORDERED: HYDRALAZINE HCL 25 MG TABLET PO SCH (21:00)
[2024-11-06] MEDS ORDERED: ATORVASTATIN 40 MG TAB PO SCH (21:00)
[2024-11-06] MEDS ORDERED: LOSARTAN POTASSIUM 50 MG TABLET PO SCH (21:00)
[2024-11-07] MEDS ORDERED: levETIRAcetam 500 MG TAB PO SCH (09:00)
[2024-11-07] MEDS ORDERED: BUPROPION HCL XL 150 MG TAB PO SCH (09:00)
[2024-11-07] MEDS ORDERED: QUETIAPINE 25 MG TAB PO SCH (09:00)
[2024-11-07] MEDS ORDERED: METOPROLOL XL 100 MG TAB PO SCH (09:00)
== END 2024-11-06 18:00 | disposition home or self-care (01) ==
LOC: ER 16:52 → ERHOLD 20:46
PROVIDERS: ADMIT Hospitalist; ATTEND Hospitalist
DX: N18.6 End stage renal disease (principal); E87.5 Hyperkalemia; E10.22 Type 1 diabetes mellitus with diabetic chronic kidney disease; I12.0 Hypertensive chronic kidney disease with stage 5 chronic kidney disease or end stage renal disease; E10.65 Type 1 diabetes mellitus with hyperglycemia; E10.649 Type 1 diabetes mellitus with hypoglycemia without coma; R56.9 Unspecified convulsions; M25.561 Pain in right knee; D63.1 Anemia in chronic kidney disease; E21.3 Hyperparathyroidism, unspecified; I73.9 Peripheral vascular disease, unspecified; Z88.2 Allergy status to sulfonamides; Z88.1 Allergy status to other antibiotic agents; Z88.6 Allergy status to analgesic agent; Z99.2 Dependence on renal dialysis; Z79.4 Long term (current) use of insulin
CPT/HCPCS: 93005; 85025 ×2; 80048; 36415; 85610; 82947 ×5; 84550; 83605; 85730; 80053; 86140; 73562; 90935; 93926; 93971; J2550 ×2; J0612; J1940 ×2; J7613; J1171 ×3; J1644 ×2; J2405 ×2; G0378

== ENCOUNTER 2024-11-09 11:20 | Day surgery (SDC) | payer OTHER ==
[2024-11-09] MEDS: NA CHLORIDE 0.9% 1,000 ML ONE (11:55)
[2024-11-09] MEDS ORDERED: ONDANSETRON 4 MG/2 ML VIAL ONE (12:56)
[2024-11-09] MEDS ORDERED: propofoL 200 MG/20 ML VIAL IV ONE (12:56)
[2024-11-09] MEDS ORDERED: LIDOCAINE 2% MPF 5 ML VIAL ONE (12:56)
[2024-11-09] MEDS ORDERED: FENTANYL CITR 100 MCG/2 ML ONE (12:56)
[2024-11-09] MEDS ORDERED: MIDAZOLAM HCL 2 MG/2 ML INJ ONE (12:56)
[2024-11-09] MEDS ORDERED: ROCURONIUM 50 MG/5 ML VIAL IV ONE (12:58)
[2024-11-09] MEDS: CEFAZOLIN SODIUM 2 GM/VIAL ONE (13:14)
[2024-11-09] MEDS: LIDOCAINE HCL/EPINEPHRINE 20 ML MDV ONE (13:49)
[2024-11-09] MEDS: HEPARIN 500 UNIT/5 ML SYR IV ONE (14:09)
[2024-11-09] MEDS ORDERED: NEOSTIGMINE 1 MG/ML -10 ML VIAL ONE (14:16)
[2024-11-09] MEDS ORDERED: GLYCOPYRROLATE 0.2 MG/ML SYR ONE (14:16)
--- NOTE | 2024-11-09 14:23 | P.OP ---
Preoperative diagnosis: Peritoneal Dialysis Catheter Dysfunction Postoperative diagnosis: Peritoneal Dialysis Catheter Dysfunction Primary procedure: Diagnostic Laparoscopy Secondary procedure: Revision of Peritoneal Dialysis Cateter Anesthesia: GETA + Local Estimated blood loss: <5cc Specimen: none Findings: Cath encased in omentum Complications: None Transferred to: Recovery Room Condition: Good
[2024-11-09] MEDS: HYDROCODONE/APAP 5/325 MG TAB ONE (15:40)
--- NOTE | 2024-11-09 15:41 | OP ---
Date of Procedure: 11/09/2024 Surgeon: Yoseph Deshpande MD, Preoperative Diagnosis: Peritoneal dialysis catheter dysfunction. Postoperative Diagnosis: Peritoneal dialysis catheter dysfunction. Procedures Performed: 1. Diagnostic laparoscopy. 2. Revision of peritoneal dialysis catheter with omentopexy. Anesthesia: General endotracheal plus local with 1% lidocaine. Estimated Blood Loss: Less than 5 cc. Specimen: None. Findings: Catheter was encased in omentum and had migrated to the right upper quadrant as it was enc ased in the omentum in this area. Complications: None. Disposition: The patient was transferred to recovery room in good condition. Procedure In Detail: After informed consent was obtained, the patient was brought to the operating r oom, prepped and draped in the usual sterile fashion. After adequate anesthesia was achieved, I insp ected the left upper quadrant. I made a 5-mm 0-degree optical trocar incision ultimately inserting t he optical trocar without incident or complication. Insufflation was obtained to 15 mmHg, at this t wilfredo. There was no injury to vital structures upon entry into the abdomen. 5 mm trocar remained in p lace throughout the procedure as the optical trocar. At this point, I inspected the left-sided abdom inal peritoneal dialysis catheter. It had migrated to the right side of the abdomen, at this point, it was encased in omentum. The omentum was not unusually pendulous or large. At this point, I proce eded to place 2 additional trocars, one 12 mm trocar in the left lower quadrant, one 5 mm trocar in t he right mid upper quadrant. Both of these were placed under direct visualization without incident o r complication. I then proceeded to use the LigaSure device to remove the omentum from the catheter. I then pulled back and suctioned out all material from the catheter to allow for a clean lumen to b e present. I then flushed it several times with sterile saline, which was quite easy without any obs truction, at this point. I then repositioned the catheter back in the pelvis in the normal anatomic position and secured it to the anterior abdominal wall using interrupted 2-0 V-Loc suture using an En do Stitch. I then secured the omentum partially to the anterior abdominal wall with a single suture using the V-Loc suture as well 2-0, at this time, which had good apposition. At this point, the juana ent was positioned in neutral position, head up, head down, and everything appeared to be in good jesús tomic position. Under desufflation pressure, I flushed the catheter and saline came immediately back without incident or complication. The patient in head up position, same situation with good flow of the catheter. At this point, I packed the catheter with heparinized saline and placed a cap on the end. I then closed the 12 mm trocar site using Raudel-Kassidy suture passer with 0 Vicryl in an int errupted fashion with good approximation of tissues. The abdomen was desufflated under direct visual ization without incident or complication. Remainder of trocars were removed. All skin incisions wer e then copiously irrigated and closed with a 4-0 Monocryl in a running fashion. Dermabond was placed over top. The patient tolerated the procedure without incident or complication, transferred to PACU in good condition. All counts were correct at the end of the case. ANDREAS/BRIT Voice ID: [id number] Report ID: [id number]
[2024-11-09 16:38] VITALS: BP 145/83; TEMP 97.9; O2SAT 99
== END 2024-11-09 16:30 | disposition home or self-care (01) ==
LOC: OR 11:20
PROVIDERS: ATTEND Surgery
PROC: 0DQW4ZZ Repair Peritoneum, Percutaneous Endoscopic Approach (ICD-10-PCS; principal; 2024-11-09 14:15)
DX: T85.621A Displacement of intraperitoneal dialysis catheter, initial encounter (principal); N18.6 End stage renal disease; Z99.2 Dependence on renal dialysis
CPT/HCPCS: 82947; 93005; J1642; J2003; J2250; J2405; J2704; J2710; J3010; J7030

== ENCOUNTER 2024-12-01 10:40 | Day surgery (SDC) | payer OTHER ==
[2024-11-30 10:37] LABS: Anion Gap 9.8 mEq/L (5.0-15.0); Potassium 4.8 mEq/L (3.5-5.1)
[2024-12-01] MEDS: NA CHLORIDE 0.9% 500 ML ONE (11:30)
[2024-12-01] MEDS ORDERED: HEPARIN 500 UNIT/5 ML SYR IV ONE (14:14)
[2024-12-01] MEDS ORDERED: propofoL 200 MG/20 ML VIAL IV ONE (14:16)
[2024-12-01] MEDS ORDERED: ONDANSETRON 4 MG/2 ML VIAL ONE (14:16)
[2024-12-01] MEDS ORDERED: LIDOCAINE 2% MPF 5 ML VIAL ONE (14:16)
[2024-12-01] MEDS ORDERED: FENTANYL CITR 100 MCG/2 ML ONE (14:16)
[2024-12-01] MEDS ORDERED: MIDAZOLAM HCL 2 MG/2 ML INJ ONE (14:16)
[2024-12-01] MEDS ORDERED: ROCURONIUM 50 MG/5 ML VIAL IV ONE (14:16)
[2024-12-01] MEDS ORDERED: SUGAMMADEX SODIUM 200 MG/2 ML VIAL IV ONE (14:18)
[2024-12-01] MEDS ORDERED: dexAMETHasone 4 MG/ML VIAL ONE (14:38)
[2024-12-01] MEDS: CEFAZOLIN SODIUM 2 GM/VIAL ONE (14:40)
[2024-12-01] MEDS: LIDOCAINE HCL/EPINEPHRINE 20 ML MDV ONE (14:52)
--- NOTE | 2024-12-01 15:07 | P.OP ---
Preoperative diagnosis: Peritoneal Dialysis Catheter Dysfunction Postoperative diagnosis: Peritoneal Dialysis Catheter Dysfunction Primary procedure: Laparoscopic Peritoneal Dialysis Catheter Removal Anesthesia: GETA + Local Estimated blood loss: <5cc Specimen: None Findings: Severe Intestinal Adhesions in pelvis and around Catheter Complications: None Transferred to: Recovery Room Condition: Good
[2024-12-01] MEDS: HYDROMORPHONE HCL 0.5 MG/0.5 ML INJ ONE (15:48)
[2024-12-01] MEDS: HYDROCODONE/APAP 7.5/325 MG TAB ONE (16:35)
[2024-12-01 17:13] VITALS: BP 134/79; TEMP 97; O2SAT 97
--- NOTE | 2024-12-02 02:06 | OP ---
Date of Procedure: 12/01/2024 Surgeon: Yoseph Deshpande MD, Preoperative Diagnosis: Peritoneal dialysis catheter dysfunction. Postoperative Diagnosis: Peritoneal dialysis catheter dysfunction. Procedure: Laparoscopic peritoneal dialysis catheter removal. Anesthesia: General endotracheal plus local 1% lidocaine. Estimated Blood Loss: 5 mL. Specimens: None. Findings: Severe intestinal adhesions in the pelvis and around the peritoneal dialysis catheter. Complications: None. Disposition: The patient was transferred to the recovery room in good condition. Procedure In Detail: After informed was obtained, the patient was brought to the operating room, pre pped and draped in usual sterile fashion after adequate anesthesia was achieved, I anesthetized an ar ea in the left upper quadrant down to the subcutaneous tissues. A 5-mm 0-degree optical trocar was i ntroduced in the abdomen without incident or complication. Insufflation was obtained to 15 mmHg at t his time. There was no injury to vital structures upon entry in the abdomen. Additional trocars wer e not necessary as I was able to inspect the area of the peritoneal dialysis catheter adequately. Th ere were significant intraabdominal adhesions in the pelvic region and surrounding the peritoneal ligia lysis catheter making replacement not advisable at this time as the patient had failed a previous rev ision with optimal plate placement. The catheter appeared to be in good position; however, there was significant scar tissue surrounding the catheter in the pelvis, which was predominantly intestine. As such, opted to remove the catheter at this time. I therefore made an incision over the previous d eep cuff at the anterior rectus sheath insertion position after appropriately anesthetizing the skin. I brought the catheter cuff into visualization and an electrocautery was used to dissect circumfere ntially around out to free it. I then pulled the catheter out under direct vision using laparoscopy, got the catheter without any injury to the intestines. No intestinal injuries were appreciated thro ughout the procedure. After the catheter was brought into the field, I then cut the catheter, sent t he distal part off for culture. I then proceeded to bring the superficial cuff into the field by jonathan lying traction, bringing the catheter cuff into view and removing it in a similar fashion using elect rocautery. The catheter was then removed in its entirety. I then irrigated all areas involved with sterile saline. The abdomen was desufflated under direct vision without incident or complication. A ll skin edges were then copiously irrigated and closed with 4-0 Monocryl in a running fashion, Dermab ond was placed over top. I then packed the catheter exit site with a quarter-inch iodoform packing a nd a sterile dressing was placed over top. The patient tolerated the procedure without incident or c omplication and transferred to PACU in good condition. All counts were correct at the end of the che eJúnior JOHNS/BRIT Voice ID: [id number] Report ID: [id number]
== END 2024-12-01 17:35 | disposition home or self-care (01) ==
LOC: OR 10:40
PROVIDERS: ATTEND Surgery
PROC: 0WPG03Z Removal of Infusion Device from Peritoneal Cavity, Open Approach (ICD-10-PCS; principal; 2024-12-01 13:30)
DX: T85.611A Breakdown (mechanical) of intraperitoneal dialysis catheter, initial encounter (principal); Z49.02 Encounter for fitting and adjustment of peritoneal dialysis catheter
CPT/HCPCS: 87070; 80048; 36415; 82947 ×3; 87077; 87186; 36590; J2704; J1100; J2003; J2250; J3010; J1171; J1642; J2405; J7040